=== PATIENT | female | born 1930 | race Caucasian/White ===

== ENCOUNTER 2017-04-13 22:13 | Inpatient (IN) | payer OTHER ==
[~2017-04-13] VITALS: Ht 167.6 cm; Wt 79.0 kg
[2017-04-13 23:27] LABS: ADD SCAN DIFF NO
[2017-04-13 23:29] LABS: BASOPHILS % 0.2 % (0.0-2.0); EOSINOPHILS # 0.1 10^3/ul (0.0-0.5); EOSINOPHILS % 0.6 % (0.0-7.0); HEMATOCRIT 30.9 % (37.0-47.0); HEMOGLOBIN 9.1 g/dl (12.0-16.0); LYMPHOCYTES # 2.3 10^3/ul (0.8-2.9); LYMPHOCYTES % 15.2 % (15.0-51.0); MEAN CORPUSCULAR HEMOGLOBIN 30.7 pg (29.0-33.0); MEAN CORPUSCULAR HGB CONC 29.4 g/dl (32.0-37.0); MEAN CORPUSCULAR VOLUME 104.4 fl (82.0-101.0); MONOCYTE # 0.9 10^3/ul (0.3-0.9); MONOCYTES % 5.9 % (0.0-11.0); NEUTROPHIL # 11.8 10^3/ul (1.6-7.5); NEUTROPHILS % 77.5 % (39.0-77.0); PLATELET COUNT 162 10^3/UL (140-415); RED BLOOD COUNT 2.96 10^6/ul (4.20-5.40); RED CELL DISTRIBUTION WIDTH 13.8 % (11.5-14.5); WHITE BLOOD COUNT 15.3 10^3/ul (4.8-10.8)
[2017-04-13] MEDS ORDERED: ENOX30DI10 SQ (23:41)
[2017-04-13] MEDS ORDERED: FAMO10TA84 G-TUBE (23:41)
[2017-04-13] MEDS ORDERED: LORA0.5T G-TUBE (23:41)
[2017-04-13] MEDS ORDERED: ASCO500S2 GTB (23:41)
[2017-04-13] MEDS ORDERED: LACTINEX G-TUBE (23:41)
[2017-04-13] MEDS ORDERED: FERR300S PO (23:41)
[2017-04-13] MEDS ORDERED: ACET160O41 PO (23:41)
[2017-04-13] MEDS ORDERED: CLON-429 G-TUBE (23:41)
[2017-04-13 23:45] LABS: INR 1.08; PT RATIO 1.1
[2017-04-13 23:46] LABS: PARTIAL THROMBOPLASTIN TIME 31.8 Sec (25.0-35.0)
[2017-04-13 23:49] LABS: ALBUMIN 3.5 g/dl (3.3-4.9); ALBUMIN/GLOBULIN RATIO 0.76; CALCIUM 9.4 mg/dl (8.4-10.2); CREATININE 1.45 mg/dl (0.44-1.00); POTASSIUM 4.4 mmol/L (3.5-5.1); TOTAL PROTEIN 8.1 g/dl (6.1-8.1)
[2017-04-13] MEDS ORDERED: SODIUM CHLORIDE 0.9% 1L BAG IV* STA (23:55)
[2017-04-13] MEDS ORDERED: MEROPENEM 1 GM/100 ML (PMX) 100 ML IVPB STA (23:55)
[2017-04-13] MEDS ORDERED: CEFEPIME 2GM/50 ML (PMX) 50 ML IVPB STA (23:55)
[2017-04-14] VITALS (44 sets, daily range): BP systolic 79–153; BP diastolic 44–121; PULSE 86–114; RESP 10–21; TEMP 97.6; Ht 167.6 cm; Wt 79.0 kg
[2017-04-14] LABS: TROPONIN-I 0.014 ng/ml (0.00-0.12)
--- NOTE | 2017-04-14 00:12 | ERA ---
ER Documentation Chief Complaint Date/Time DATE: 04/14/17 TIME: 00:10 Chief Complaint ELEVATED WBC HPI This is an 86-year-old female sent in from [facility] facility for elevated WBC count. Patient has a trach to vent patient. History is limited secondary to baseline mental status. History is per EMS run sheet senior care transfer sheet. ROS All systems reviewed and are negative except as per history of present illness. Medications Home Meds Reported Medications Clonazepam* (Klonopin*) 0.5 Mg Tab, 0.25 MG G-TUBE BID for ANXIETY, TAB 04/13/17 Lorazepam* (Lorazepam*) 0.5 Mg Tablet, 0.5 MG G-TUBE Q12 Y for ANXIETY, TAB 0.5MG TABLET VIA GT Q12HRS PRN; FOR ANXIEETY M/B HYPERVENTILATION L/T SOB. 04/13/17 Acetaminophen* (Acetaminophen* Susp) 160 Mg/5 Ml Oral.susp, 160 MG PO Q4H Y for PAIN OR TEMP ABOVE 38C, ML MAY GIVE 640MG/20ML 30 MINUTES PRIOR TO RNA PROGRAM FOR PAIN MANAGEMENT R/T SPLINTING & ROM EXERCISES NTE 3GM/24HR OF APAP. 04/13/17 Ascorbic Acid* (Vitamin C* Liq) 500 Mg/5 Ml Syrup, 500 MG GTB DAILY, ML 500MG/5ML VIA GT DAILY DX: SUPPLEMENT 04/13/17 Ferrous Sulfate (FEROSUL) 300 Mg/6.82 Ml Solution, 300 MG PO 330MG/7.5ML VIA GT BID DX: SUPPLEMENT/ANEMIA 04/13/17 Lactobacillus Acidophilus* (Lactinex*) 1 Tab Chew, 1 TAB G-TUBE DAILY, TAB 04/13/17 Famotidine* (Famotidine*) 10 Mg Tablet, 10 MG G-TUBE DAILY for GERD, #30 TAB VIA G TUBE Daily at 11:30AM 04/13/17 Enoxaparin Sodium* (Lovenox*) 30 Mg/0.3 Ml Disp.syrin, 30 MG SQ DAILY, SYR 04/13/17 Allergies Allergies: Coded Allergies: vancomycin (Verified Allergy, Unknown, 02/28/15) PMhx/Soc History of Surgery: Yes (G-TUBE) Hx Respiratory Disorders: Yes (TRACHE) Hx Cardiac Disorders: Yes (HTN, CHF) Hx Psychiatric Problems: Yes (DEMENTIA) Hx Miscellaneous Medical Probl: Yes (DYSPHAGIA) Hx Alcohol Use: No Hx Substance Use: No Hx Tobacco Use: No Smoking Status: Unknown if ever smoked Physical Exam Vitals Vital Signs Date Time Temp Pulse Resp B/P Pulse Ox O2 Delivery O2 Flow Rate FiO2 04/13/17 22:50 92 10 99 35 04/13/17 22:38 99.3 93 105/69 100 Physical Exam Const: [] Head: Atraumatic Eyes: Normal Conjunctiva ENT: Trach site is clean dry and intact with no sign of infection Neck: Full range of motion..~ No meningismus. Resp: Clear to auscultation bilaterally Cardio: Regular rate and rhythm, no murmurs Abd: Soft, non tender, non distended. Normal bowel sounds Skin: No petechiae or rashes Back: No midline or flank tenderness Ext: No cyanosis, or edema Neur: Awake Psych: Deferred Result Diagram: 04/13/17225404/13/175 Results 24 hrs Laboratory Tests Test 04/13/17 22:55 White Blood Count 15.310^3/ul Red Blood Count 2.9610^6/ul Hemoglobin 9.1g/dl Hematocrit 30.9% Mean Corpuscular Volume 104.4fl Mean Corpuscular Hemoglobin 30.7pg Mean Corpuscular Hemoglobin Concent 29.4g/dl Red Cell Distribution Width 13.8% Platelet Count 22488^3/UL Mean Platelet Volume 13.0fl Neutrophils % 77.5% Lymphocytes % 15.2% Monocytes % 5.9% Eosinophils % 0.6% Basophils % 0.2% Nucleated Red Blood Cells % 0.0/100WBC Neutrophils # 11.810^3/ul Lymphocytes # 2.310^3/ul Monocytes # 0.910^3/ul Eosinophils # 0.110^3/ul Basophils # 0.010^3/ul Nucleated Red Blood Cells # 0.010^3/ul Prothrombin Time 14.0Sec Prothrombin Time Ratio 1.1 INR International Normalized Ratio 1.08 Activated Partial Thromboplast Time 31.8Sec Sodium Level 150mmol/L Potassium Level 4.4mmol/L Chloride Level 109mmol/L Carbon Dioxide Level 31mmol/L Anion Gap 14 Blood Urea Nitrogen 89mg/dl Creatinine 1.45mg/dl Glucose Level 598mg/dl Lactic Acid Level 2.3mmol/L Calcium Level 9.4mg/dl Total Bilirubin 0.0mg/dl Direct Bilirubin 0.00mg/dl Indirect Bilirubin 0.0mg/dl Aspartate Amino Transf (AST/SGOT) 12IU/L Alanine Aminotransferase (ALT/SGPT) 29IU/L Alkaline Phosphatase 104IU/L Troponin I 0.014ng/ml Total Protein 8.1g/dl Albumin 3.5g/dl Globulin 4.60g/dl Albumin/Globulin Ratio 0.76 Current Medications Medications (Trade) Dose Ordered Sig/Danyell Route PRN Reason Start Time Stop Time Status Last Admin Dose Admin Sodium Chloride 2020 ml 2,020 ml BOLUS OVER 2 HOURS STAT IV* 04/13/17 23:55 04/14/17 00:00 DC Cefepime HCl 50 ml @ 100 mls/hr ONCE STAT IVPB 04/13/17 23:55 04/14/17 00:24 Meropenem (Merrem 1 Gm/100 ml (Pmx)) 100 ml @ 200 mls/hr ONCE STAT IVPB 04/13/17 23:55 04/14/17 00:24 Procedures/MDM EKG: Rate/Rhythm: [Normal Sinus Rhythm] QRS, ST, T-waves: [No changes consistent w/ acute ischemia] Impression: [No evidence of ischemia or arrhythmia] Chest X-ray 1V Interpreted by me: Soft Tissue: No acute abnormalities Bones: No acute abnormalities Mediastinum/Cardiac Silhouette/Lungs: [No acute abnormalities] Patient's infectious symptoms have not stabilized and the patient is at risk of rapid decompensation. The patient will be admitted for careful hydration, antibiotic therapy, and infectious source control. Severe Sepsis Assessment: Infectious Source: Unknown End organ damage indicated by: [Lactate > 2.0 mmol/L Severe Sepsis Managment: Blood Cultures X 2 before broad spectrum antibiotics initiated within 3 hours of recognition. 30 ml/kg NS bolus Completed Initial Lactate: 2.3 Repeat Lactate pending Critical Care: Time: 45 minutes Treatments/Evaluations: Emergent fluid management, while maintaining close respiratory support. Immediate broad spectrum antibiotic therapy. Simultaneous assessment for possible sources in order to direct therapy. Consideration for invasive and chemical support to prevent respiratory or cardiac collapse. Septic Shock Assessment (1 hour post 30 ml/kg fluid bolus): Hypotension (SBP < 90 or 40 mmHg drop, MAP < 65): [No] Lactic acid > 4.0 [No] Accepting Care Team: Current data and ongoing care discussed. Time: 12 AM Primary Provider: Dr. 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
--- NOTE | 2017-04-14 00:32 | RADRPT ---
PROCEDURE: XR Chest. CLINICAL INDICATION: Chest pain. Possible sepsis TECHNIQUE: Portable AP upright view of the chest was obtained. COMPARISON: 06/25/2009 FINDINGS: The cardiomediastinal silhouette is within normal limits. Elevation of the right hemidiaphragm is p resent, the left lung is grossly clear for acute infiltrates. There has been improvement in aeratio n of the lungs compared to the prior study. Tracheostomy is in good position. There is no evidence for pleural effusion, pneumothorax or pulmonary vascular congestion. Demineralization is again not ed without acute osseous abnormality. Interval removal of previously seen left-sided PICC RPTAT:HJJR IMPRESSION: 1. Chronic interstitial age-related changes of the lungs are noted with improved aeration compared to the prior study and no evidence of acute intrathoracic pathology. 2. Nonspecific elevation of the right hemidiaphragm but 3. Tracheostomy in good position. Physician Pritesh Date Time Electronically viewed and signed by Physician Pritesh on 04/14/2017 00:32 JR/
[2017-04-14 06:46] LABS: ADD UMIC YES; URINE BILIRUBIN (Dip) NEGATIVE (NEGATIVE); URINE BLOOD (Dip) 3+ (NEGATIVE); URINE COLOR BROWN (YELLOW); URINE KETONES (Dip) NEGATIVE (NEGATIVE); URINE LEUKOCYTE ESTERASE (Dip) 3+ (NEGATIVE); URINE NITRITE (Dip) NEGATIVE (NEGATIVE); URINE TOTAL PROTEIN (Dip) 2+ (NEGATIVE); URINE UROBILINOGEN (Dip) 0.2 E.U./dL (0.1-1.0)
[2017-04-14 07:07] LABS: BACTERIA,URINE FEW
[2017-04-14] MEDS ORDERED: D5W-0.45 NACL + KCL 20 MEQ 1,000 ML IV SCH (10:59)
[2017-04-14] MEDS ORDERED: NACL 0.9% 3 ML SYG IV SCH (11:00)
[2017-04-14] MEDS ORDERED: morphine 2 MG INJ IV PRN (11:00)
[2017-04-14] MEDS ORDERED: ONDANSETRON 4 MG INJ IV PRN (11:00)
[2017-04-14] MEDS ORDERED: GLUCAGON 1 MG INJ IM PRN (11:30)
[2017-04-14] MEDS ORDERED: GLUCOSE GEL 15 GRAM TUBE BUCCAL PRN (11:30)
[2017-04-14] MEDS ORDERED: DEXTROSE 50% 50 ML SYRINGE IV PRN ×2 (11:30)
[2017-04-14] MEDS ORDERED: GLUCOSE GEL 15 GRAM TUBE PO PRN ×2 (11:30)
[2017-04-14] MEDS: LINEZOLID 600 MG/D5W (PMX) 300 ML IVPB SCH ×2 (11:39→20:40)
--- NOTE | 2017-04-14 12:13 | HP ---
DATE OF ADMISSION: 04/14/2017 CHIEF COMPLAINT: The patient was sent from [facility] for elevated white blood cells on routine labs. HISTORY OF PRESENT ILLNESS: The patient is an 86-year-old female who was brought from [facility]. 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 The patient cannot provide any history. Most of the history wa s obtained from medical records and talking to the nursing staff. The patient is noted to have a te mperature of 99.2 on admission. White blood cells were elevated to 15,300 with lactic acid elevated to 2.7. The patient also noted hypernatremia and hyperglycemia, elevated BUN and creatinine. The patient's urinalysis was positive for leukocyte esterase and bacteria. The patient was given fluids and broad-spectrum antibiotics and admitted for further evaluation and management. PAST MEDICAL HISTORY: Per HPI. PAST SURGICAL HISTORY: Status post tracheostomy by Dr. Mancia in 2008, status post G-tube placem ent. FAMILY HISTORY: Noncontributory. SOCIAL HISTORY: The patient is a resident of a [facility] facility. There is no documented hi story of tobacco use, alcohol use or illicit drug use. ALLERGIES: THE PATIENT IS ALLERGIC TO VANCOMYCIN. MEDICATIONS ON ADMISSION: 1. Klonopin. 2. Lorazepam. 3. Acetaminophen. 4. Ascorbic acid. 5. Ferrous sulfate. 6. Lactinex. 7. Pepcid. 8. Lovenox. REVIEW OF SYSTEMS: A 12-point review of systems is negative unless what mentioned in the HPI. PHYSICAL ASSESSMENT: GENERAL: Well-developed, well-nourished female, currently is awake. VITAL SIGNS: Temperature is 99.2, pulse is 89, blood pressure is 140/47, respiratory rate 19, oxyge n saturation 98% on 35% FIO2. HEENT: Head is atraumatic, normocephalic. Pupils equal, round, reactive to light and accommodation . Oral mucosa is pink and moist. NECK: Supple, no cervical lymphadenopathy. The patient has a tracheostomy at the base of the neck with no bleeding. LUNGS: Slightly diminished at the bases, clear at the upper lobes. CARDIOVASCULAR: Normal S1, S2. No murmurs, gallops, clicks, rubs noted. ABDOMEN: Protuberant, soft, nondistended, nontender. Bowel sounds present. There is a G-tube with excoriation, redness around the stoma. There is no guarding or rebound tenderness. EXTREMITIES: Bilateral lower extremities contracted, upper extremity pulses equal bilaterally 2+. NEUROLOGIC: The patient is awake, opens eyes. Does not follow any commands. SKIN: There is no apparent rash, petechiae noted. LABORATORY DATA: On admission, CBC: White blood cells 15.3, hemoglobin 9.1, hematocrit 30.9, plate lets 162. Chemistry: Sodium is 150, potassium 4.4, chloride 109, carbon dioxide 31, anion gap 14, BUN 89, creatinine 1.45, glucose 598. Lactic acid 2.7. AST 12, ALT 29, alkaline phosphate is 104. Troponin 0.014. Albumin 3.5. IMAGING: Chest x-ray on admission with chronic interstitial age-related changes of the lungs are no alexis with improved aeration compared to prior study. No evidence of acute intrathoracic pathology. Nonspecific elevation of the right hemidiaphragm. Tracheostomy in good position. ASSESSMENT AND PLAN: 1. Sepsis, possible urinary tract infection per UA. 2. G-tube cellulitis. 3. Ventilator-dependent respiratory failure. 4. Dysphagia with G-tube. 5. Organic brain syndrome with psychosis. 6. Dehydration. 7. Chronic Pérez catheter. 8. Hypertension. 9. Hypernatremia. The patient has a history of methicillin-resistant Staphylococcus aureus pneumonia. The patient was given cefepime and meropenem in the emergency room. We are going to obtain urine, blood and sputum cultures. We will place patient on Zyvox since patient has a history of MRSA and VANCOMYCIN ALLERG Y. We will ask Dr. Calvo to see patient in infectious disease consultation. We will ask Dr. Lucio gunter to see patient in pulmonology consultation for ventilator management. We will ask Dr. Thompson to see patient in gastroenterology consultation for possible G-tube cellulitis. Continue IV fluids. T he patient is hyperglycemic; however, does not have a history of diabetes. We will place patient on insulin per mild algorithm sliding scale with Accu-Chek q.4h. The patient also with elevated BUN a nd creatinine, we will ask Dr. Mcdaniel to see patient in nephrology consultation. We will continue Lo venox for deep venous thrombosis prophylaxis and Protonix for peptic ulcer disease prophylaxis. Fur ther recommendations based on clinical course. Plan of care discussed with Dr. Perry. Dictated By: MARY HENDRICKSON GRAIN SACKER for ALFONSO PERRY MD SR/NTS Conf#: [id number] DID#: [id number]
[2017-04-14] MEDS: INSULIN ASPART [NOVOLOG] 3 ML PEN SC SCH ×3 (12:45→20:47)
--- NOTE | 2017-04-14 12:45 | CONS ---
DATE OF ADMISSION: 04/14/2017 DATE OF CONSULTATION: 04/14/2017 TYPE OF CONSULTATION: Pulmonary. REASON FOR CONSULTATION: Ventilator management. Thank you, Dr. Carrillo, for this consultation. HISTORY OF PRESENT ILLNESS: This is an 86-year-old lady with multiple medical problems, transferred from longterm facility for leukocytosis and worsening mentation. Few further details are av ailable. The patient is nonverbal, on mechanical ventilation, unable to give me further details. PAST MEDICAL HISTORY: Includes 1. Vent-dependent respiratory failure. 2. Encephalopathy. 3. History of iron deficiency anemia. 4. History of MRSA. 5. Prior septic shock. MEDICATIONS: Per chart. ALLERGIES: NONE. SOCIAL HISTORY: Nonsmoker, no alcohol, no history of drug use. FAMILY HISTORY: Noncontributory. ALLERGIES: VANCOMYCIN. REVIEW OF SYSTEMS: A 12-point review of systems unable to perform. PHYSICAL EXAMINATION: GENERAL: Chronically ill appearing lady, who appears intermittently agitated but not following comm ands. VITAL SIGNS: Temperature 98, pulse is 100, blood pressure 140/67, O2 saturation 96% on FIO2 of 50%. NECK: Trach site clean and intact. CARDIAC: S1, S2, no added sounds or murmurs. CHEST: Diminished air entry bilaterally. ABDOMEN: Soft, nontender. No guarding or rebound. EXTREMITIES: No cyanosis, clubbing, 2+ edema. NEUROLOGIC: Generalized weakness. LABORATORY DATA: White count 15.3, hemoglobin 9.1, platelets 116. BUN 89, creatinine 1.45, glucose 598. INR 1.02. Urinalysis was positive for UTI. IMAGING: Chest x-ray was reviewed, showed no significant infiltrates or effusions, elevated right h emidiaphragm. IMPRESSION: 1. Urinary tract infection with leukocytosis. 2. Ventilatory-dependent respiratory failure. 3. Encephalopathy. 4. Dysphagia with G-tube. 5. Incomplete data. PLAN: 1. Continue broad-spectrum antibiotics. 2. Continue mechanical ventilation. 3. Pulmonary toilet. 4. Tube feeding. 5. DVT and GI prophylaxis. Dictated By: MARINO HUDSON/MARY Conf#: [id number] DID#: [id number]
--- NOTE | 2017-04-14 13:10 | CONS ---
DATE OF ADMISSION: 04/14/2017 DATE OF CONSULTATION: 04/14/2017 INFECTIOUS DISEASE CONSULTATION REASON FOR CONSULTATION: Antibiotic management. HISTORY OF PRESENT ILLNESS: The patient is an 86-year-old [place] male who comes in from residential facility with elevated white count. Problems include: 1. Organic brain syndrome with psychosis. 2. Ventilator-dependent respiratory failure. 3. Status post tracheostomy. 4. Dysphagia with G-tube placement. 5. History of methicillin-resistant Staphylococcus aureus pneumonia. 6. Hypertension. 7. Obstructive uropathy with chronic Pérez catheter. The patient cannot provide any history. He has a temperature of 99.2 on admission. His CBC showed a white count of 15.3, H and H of 9.1 and 30.9, platelet count 162,000. BUN and creatinine 89 and 1 .45. Chest x-ray showed chronic interstitial age-related changes of the lungs, no evidence of acute intrathoracic pathology. PAST MEDICAL HISTORY: Operations as outlined. FAMILY HISTORY: Noncontributory. SOCIAL HISTORY: The patient lives in a residential facility. Does not smoke, drink, or abuse d rugs. ALLERGIES: VANCOMYCIN. MEDICATIONS: Per chart. REVIEW OF SYSTEMS: Noncontributory. PHYSICAL EXAMINATION: GENERAL: The patient is an elderly appearing, chronically ill female who is awake, but noncommunica tive. VITAL SIGNS: Stable. She is afebrile. SKIN: Without generalized rash. HEENT: Within normal limits. NECK: The patient has a tracheostomy. CHEST: Decreased breath sounds at the bases. HEART: Without murmur or gallop. ABDOMEN: Soft, nontender without organosplenomegaly or masses. G-tube has some excoriation and red ness around the stoma. There is no guarding or rebound tenderness. EXTREMITIES: Bilateral contractures. RECTAL AND GENITAL: Deferred. NEUROLOGIC: The patient does not follow commands. She is demented, but has no focal neurological f indings otherwise. IMPRESSION AND PLAN: The patient has a history of methicillin-resistant staph. She was given cefep emy and meropenem in the emergency room. Cultures of urine and blood in the sputum were done. The patient was placed on Zyvox. The infection may be from G-tube cellulitis which is most likely. Her urinalysis, however, shows 3+ leukocyte esterase and 25 to 50 white cells per high powered field, s o she probably also has a urinary tract infection. We know she has a Pérez catheter in place. I wi ll dictate my findings to Dr. Carrillo. Dictated By: JUWAN MARSHALL MD, JD/MARY Conf#: [id number] DID#: [id number]
--- NOTE | 2017-04-14 18:37 | CONS ---
DATE OF ADMISSION: 04/14/2017 DATE OF CONSULTATION: 04/14/2017 TYPE OF CONSULTATION: NEPHROLOGY. REFERRING PHYSICIAN: Santos Carrillo MD REASON FOR CONSULTATION: Acute kidney injury with a creatinine 1.5,BUN 89, hypernatremia with a sodium 150, sepsis. 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 The patient was noted to have a WBC count of 15.3 on admission, but on the chemistry, she is noted to have hypernatremia with a sodium of 150, BUN 89, creatinine 1.4. Her blood sugar has been very uncontrolled about 598 with a lactic acid of 2.3, which went up to 2.3 this morning. Her blood sugar has been still running very high and the patient is noted to have acute kidney injury with a severe hypernatremia and renal has been consulted for that. REVIEW OF SYSTEMS: Unable to obtain from the patient since the patient has vent dependent respiratory failure. PAST MEDICAL HISTORY: 1. Notable for ventilator-dependent respiratory failure, status post tracheostomy. 2. Organic brain syndrome with psychosis. 3. Status post dysphagia with G-tube placement. 4. History of methicillin-resistant Staphylococcus aureus pneumonia. 5. Hypertension. 6. Obstructive uropathy with a chronic Pérez catheter. ALLERGIES: VANCOMYCIN. SOCIAL HISTORY: The patient lives in a senior living facility. Does not smoke, drink or abuse drugs. FAMILY HISTORY: Noncontributory. HOME MEDICATIONS: As per medical reconciliation. PHYSICAL EXAMINATION: VITAL SIGNS: Temperature 99.5, heart rate 90, respiration 14, blood pressure 143/61, saturation 100% on mechanical ventilator, FIO2 of 30%. GENERAL: The patient is an elderly female, chronically ill female who is awake , but noncommunicative. SKIN: Without generalized rash. HEENT: Within normal limits. NECK: Supple, no JVD. The patient has a tracheostomy site. LUNGS: Decreased breath sounds at both lung bases, minimal expiratory wheezing present. HEART: S1, S2, with regular rhythm without murmur or gallop. ABDOMEN: Soft, nontender, without organosplenomegaly or masses. G-tube site has some excoriation and redness around the stoma. There is no guarding or rebound tenderness. EXTREMITIES: Bilateral contractures. RECTAL AND GENITAL: Deferred. NEUROLOGICAL: The patient does not follow, she is demented but has no focal neurological deficits otherwise. LABORATORY DATA/DIAGNOSTIC IMAGING: Sodium 150, potassium 4.4, chloride 109, bicarbonate 31, BUN 89, creatinine 1.4, glucose 598, calcium 9.4, albumin 3.5. Lactic acid 2.3. PT ____, PTT 31, INR 1.08. WBC 15.3, hemoglobin 9.1, platelet count 162. Urinalysis positive for infection, leukocyte esterase 3+, 3 + hemoglobin, and 2+ total protein. 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 Renal has been consulted for hyponatremia, acute kidney injury. IMPRESSION: 1. Acute kidney injury with high BUN 89, likely secondary to septic shock from sepsis secondary to urinary tract infections. 2. Septic shock secondary to urinary tract infection. 3. Hypernatremia. Sodium 150 secondary to large free water deficit. 4. G-tube site cellulitis. 5. Ventilator-dependent respiratory failure, status post tracheostomy. 6. Dysphagia, status post gastrostomy tube placement. 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 9. Hypertension. 10. Hyperlipidemia. PLAN: Thank you, Dr. Carrillo, for this consultation. 1. I will stop the patient's current IV fluids, D5 half NS and I will switch her to half NS with 20 mEq KCl to run at 75 mL per hour. 2. IV antibiotics, cefepime and meropenem has been started and infectious disease has been following the patient. 3. The patient likely has acute kidney injury from sepsis and also prerenal azotemia. I am expecting the patient's BUN and creatinine to improve with IV fluid hydration. 4. We will continue to monitor the patient's electrolytes and will follow up with the primary care service and other subspecialty services on the case. Once again, thank you, Dr. Carrillo, for this consultation. Total time spent in this patient's evaluation making assessment and plan, communicating with the patient's family at bedside and communicating with the nursing staff took more than 90 minutes. Dictated By: FERNANDO CLARK MD, KP/MARY Conf#: [id number] DID#: [id number] MTDD
[2017-04-14] MEDS ORDERED: 1/2 NS + KCL 20 MEQ 1,000 ML IV SCH (19:30)
[2017-04-14] MEDS ORDERED: BARIUM SULF 2% 450 ML BTL (BERRY SMOOTHIE) PO ONE (20:00)
[2017-04-15] VITALS (30 sets, daily range): BP systolic 104–153; BP diastolic 45–70; PULSE 73–90; RESP 10–19
--- NOTE | 2017-04-15 00:34 | CONS ---
DATE OF ADMISSION: 04/14/2017 DATE OF CONSULTATION: TYPE OF CONSULTATION: Gastroenterology. Dear Dr. Perry: Thank you for asking me to see Ms. Graves in GI consultation. HISTORY OF PRESENT ILLNESS: The patient is an 86-year-old French female, is admitted to the [facility] with sepsis but is in intensive care unit because of hypotension and sepsis. GI consultation is requested because of a history of cellulitis around the gastrostomy site. The patient is [facility] from a [facility] facility. She has got respiratory failure, status post tracheostomy, organic brain syndrome. She is ventilato r dependent. She has a PEG in place, history of MRSA, hypertension, obstructive uropathy. She is o n a chronic Pérez catheter. MEDICATIONS PRIOR TO THE ADMISSION: Include 1. Klonopin. 2. Lorazepam. 3. Acetaminophen. 4. Ascorbic acid. 5. Ferrous sulfate. 6. Lactinex. 7. Pepcid. 8. Lovenox. PHYSICAL EXAMINATION: GENERAL: The patient is mildly obese. She is not verbal. VITAL SIGNS: Pulse is 88, blood pressure is 120/68. CARDIOVASCULAR: Normal heart sounds. RESPIRATORY: Normal breath sounds. Status post tracheostomy. ABDOMEN: Severe erythema and edema, friability around the gastrostomy site. LABORATORY WORKUP: Hemoglobin is 9.1, WBC count 15,300. The liver panel: Bilirubin 0.0, AST 12, A LT 29, alkaline phosphatase 104. Potassium 4.4, sodium 150 as of yesterday. CLINICAL IMPRESSION: The patient presenting with history of severe cellulitis around the gastrostom y site, rule out intra-abdominal abscess; history of sepsis; history of respiratory failure; PEG coni cement; multiple other medical problems as mentioned above. PLAN: Recommend CAT scan of the abdomen to rule out intra-abdominal abscess. Once again, Dr. Perry, thank you for this consultation. Dictated By: ISABEL HARDY/MARY Conf#: [id number] DID#: [id number] CC: ALFONSO PERRY MD;*EndCC*
[2017-04-15] MEDS: INSULIN ASPART [NOVOLOG] 3 ML PEN SC SCH ×6 (01:14→20:32)
[2017-04-15 05:15] LABS: ADD SCAN DIFF NO
[2017-04-15 05:26] LABS: ABNORMAL IP MESSAGE 1; BASOPHILS % 0.1 % (0.0-2.0); EOSINOPHILS # 0.1 10^3/ul (0.0-0.5); EOSINOPHILS % 0.9 % (0.0-7.0); HEMATOCRIT 27.6 % (37.0-47.0); HEMOGLOBIN 7.8 g/dl (12.0-16.0); LYMPHOCYTES # 3.3 10^3/ul (0.8-2.9); LYMPHOCYTES % 21.5 % (15.0-51.0); MEAN CORPUSCULAR HEMOGLOBIN 30.6 pg (29.0-33.0); MEAN CORPUSCULAR HGB CONC 28.3 g/dl (32.0-37.0); MEAN CORPUSCULAR VOLUME 108.2 fl (82.0-101.0); MONOCYTE # 0.9 10^3/ul (0.3-0.9); MONOCYTES % 5.8 % (0.0-11.0); NEUTROPHIL # 10.8 10^3/ul (1.6-7.5); NEUTROPHILS % 71.1 % (39.0-77.0); PLATELET COUNT 149 10^3/UL (140-415); RED BLOOD COUNT 2.55 10^6/ul (4.20-5.40); RED CELL DISTRIBUTION WIDTH 13.5 % (11.5-14.5); WHITE BLOOD COUNT 15.2 10^3/ul (4.8-10.8)
[2017-04-15] MEDS: PANTOPRAZOLE 40 MG INJ IV SCH (05:52)
[2017-04-15 05:55] LABS: ALBUMIN/GLOBULIN RATIO 0.69; BILIRUBIN,INDIRECT 0.3 mg/dl (0-1.1); BILIRUBIN,TOTAL 0.3 mg/dl (0.2-1.3); CALCIUM 9.3 mg/dl (8.4-10.2); CREATININE 1.26 mg/dl (0.44-1.00); MAGNESIUM 2.8 mg/dl (1.7-2.5); POTASSIUM 4.5 mmol/L (3.5-5.1); TOTAL PROTEIN 7.3 g/dl (6.1-8.1)
[2017-04-15 08:09] LABS: AADO2 Arterial 99.9 mmHg (7.0-24.0); Arterial Base Excess 3.7 mmol/L (-3.0-3); Arterial COHb 0.3 % (0.0-3.0); Arterial Fraction of Oxyhgb 96.5 % (93.0-99.0); Arterial HCO3 28.5 mmol/L (22.0-26.0); Arterial MetHb 0.4 % (0.0-1.5); Arterial Total Hemglobin 8.6 g/dl (12.0-18.0); MODE VENT - AC
[2017-04-15] MEDS: LINEZOLID 600 MG/D5W (PMX) 300 ML IVPB SCH ×2 (08:38→20:30)
[2017-04-15] MEDS: ENOXAPARIN 30 MG/0.3 ML SYG SC SCH (08:40)
--- NOTE | 2017-04-15 08:50 | CONS ---
Date/Time of Note Date/Time of Note DATE: 04/15/17 TIME: 08:47 Assessment/Plan Assessment/Plan Additional Assessment/Plan IMPRESSION: 1. Acute kidney injury with high BUN 89, likely secondary to septic shock from sepsis secondary to urinary tract infections. 2. Septic shock secondary to urinary tract infection. 3. Hypernatremia. Sodium 150 secondary to large free water deficit. 4. G-tube site cellulitis. 5. Ventilator-dependent respiratory failure, status post tracheostomy. 6. Dysphagia, status post gastrostomy tube placement. 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 9. Hypertension. 10. Hyperlipidemia. PLAN: good urine output 1.5 liter, BUN/Cr improvig, Na trending up D/C 1/2 NS start D5W [id number] KCL at 75 cc/hr Pt Blood sugar will go up but will cover with sliding scale Vent Management per pulmonary Will continue to follow up Consultation Date/Type/Reason Admit Date/Time April 14, 2017 at 00:00 Initial Consult Date March Type of Consultation: NEPHROLOGY Reason for Consultation acute kidney Injury, Hypernatremia Referring Provider: ALFONSO PERRY MD 24 HR Interval Summary Free Text/Dictation pt remained Stable on ventilator,BUN improving,Cr better, but Na trending up Exam/Review of Systems Vital Signs Vitals Vital Signs Date Time Temp Pulse Resp B/P Pulse Ox O2 Delivery O2 Flow Rate FiO2 04/15/17 08:00 82 04/15/17 08:00 30 04/15/17 06:00 13 153/62 99 Mechanical Ventilator 04/15/17 05:00 98.1 Intake and Output 04/14/17 04/14/17 04/15/17 15:00 23:00 07:00 Intake Total 280 ml 1690 ml 600 ml Output Total 690 ml 465 ml 380 ml Balance -410 ml 1225 ml 220 ml Exam GENERAL: The patient is an elderly female, chronically ill female who is awake , but noncommunicative. SKIN: Without generalized rash. HEENT: Within normal limits. NECK: Supple, no JVD. The patient has a tracheostomy site. LUNGS: Decreased breath sounds at both lung bases, minimal expiratory wheezing present. HEART: S1, S2, with regular rhythm without murmur or gallop. ABDOMEN: Soft, nontender, without organosplenomegaly or masses. G-tube site has some excoriation and redness around the stoma. There is no guarding or rebound tenderness. EXTREMITIES: Bilateral contractures. RECTAL AND GENITAL: Deferred. NEUROLOGICAL: The patient does not follow, she is demented but has no focal neurological deficits otherwise. Results Result Diagram: 04/15/17 0500 04/15/17 0500 Results 24 hrs Laboratory Tests Test 04/14/17 10:12 04/14/17 12:43 04/14/17 16:48 04/14/17 20:44 Blood Gas Specimen Source Blood arterial Arterial Blood Date Drawn 04/14/2017 10:46:00 AM Arterial Blood pH (Temp corrected) 7.426 Arterial Blood pCO2 (Temp correct) 44.3 Arterial Blood pO2 (Temp corrected) 98.2 H Arterial Blood HCO3 28.5 H Arterial Blood Base Excess 3.7 H Arterial Blood Oxygen Saturation 97.2 Omi Test N/A Arterial Blood Gas Puncture Site LB Arterial Blood Carboxyhemoglobin 0.3 Arterial Blood Methemoglobin 0.4 Blood Gas A-a O2 Differential 99.9 H Oxyhemoglobin Percent 96.5 Total Hemoglobin 8.6 L Blood Gas Temperature 37.0 Blood Gas Respiration Rate 10.0 Blood Gas Actual Respiration Rate 17 Blood Gas Modality VENT - AC FiO2 35.0 Blood Gas Tidal Volume 550.0 Blood Gas Low PEEP Setting 5.0 Blood Gas Notified Whom BT Blood Gas Notified Time 04/14/2017 10:52:00 AM Bedside Glucose 371 H 234 H 150 Test 04/15/17 01:10 04/15/17 05:00 04/15/17 05:55 04/15/17 08:36 Bedside Glucose 166 142 162 White Blood Count 15.2 H Red Blood Count 2.55 L Hemoglobin 7.8 L Hematocrit 27.6 L Mean Corpuscular Volume 108.2 H Mean Corpuscular Hemoglobin 30.6 Mean Corpuscular Hemoglobin Concent 28.3 L Red Cell Distribution Width 13.5 Platelet Count 149 Mean Platelet Volume 13.0 H Neutrophils % 71.1 Lymphocytes % 21.5 Monocytes % 5.8 Eosinophils % 0.9 Basophils % 0.1 Nucleated Red Blood Cells % 0.0 Neutrophils # 10.8 H Lymphocytes # 3.3 H Monocytes # 0.9 Eosinophils # 0.1 Basophils # 0.0 Nucleated Red Blood Cells # 0.0 Sodium Level 156 H Potassium Level 4.5 Chloride Level 119 H Carbon Dioxide Level 32 H Anion Gap 10 Blood Urea Nitrogen 55 #H Creatinine 1.26 H Glucose Level 144 # Hemoglobin A1c 7.2 H Calcium Level 9.3 Magnesium Level 2.8 H Total Bilirubin 0.3 Direct Bilirubin 0.00 Indirect Bilirubin 0.3 Aspartate Amino Transf (AST/SGOT) 34 Alanine Aminotransferase (ALT/SGPT) 30 Alkaline Phosphatase 86 Total Protein 7.3 Albumin 3.0 L Globulin 4.30 H Albumin/Globulin Ratio 0.69 Medications Medications Current Medications Linezolid (Zyvox 600mg/D5W (Pmx)) 300 ml @ 300 mls/hr Q12 IVPB Last administered on 04/15/17 08:38; Admin Dose 300 MLS/HR; Start 04/14/17 at 11:00 Lorazepam (Ativan) 0.5 mg Q6H PRN IV ANXIETY; Start 04/14/17 at 11:00 Ondansetron HCl (Zofran Inj) 4 mg Q6H PRN IV NAUSEA AND/OR VOMITING; Start at 11:00 Morphine Sulfate (morphine) 2 mg Q4H PRN IV PAIN LEVEL 7-10; Start 04/14/17 at 11:00 Pantoprazole (Protonix Iv) 40 mg DAILY@06 IV Last administered on 04/15/17 05: 52; Admin Dose 40 MG; Start 04/15/17 at 06:00 Enoxaparin Sodium (Lovenox) 30 mg DAILY SC Last administered on 04/15/17 08:40 ; Admin Dose 30 MG; Start 04/15/17 at 09:00 Insulin Aspart (Novolog Insulin Pen) NOVOLOG *MILD* ALGORI... Q4 SC Last administered on 04/15/17 08:43; Admin Dose 1 UNIT; Start 04/14/17 at 13:00 Miscellaneous Information 1 ea NOTE XX ; Start 04/14/17 at 11:30 Glucose (Glutose) 15 gm Q15M PRN PO DECREASED GLUCOSE; Start 04/14/17 at 11:30 Glucose (Glutose) 22.5 gm Q15M PRN PO DECREASED GLUCOSE; Start 04/14/17 at 11: 30 Dextrose (D50w Syringe) 25 ml Q15M PRN IV DECREASED GLUCOSE; Start 04/14/17 at 11:30 Dextrose (D50w Syringe) 50 ml Q15M PRN IV DECREASED GLUCOSE; Start 04/14/17 at 11:30 Glucagon (Glucagen) 1 mg Q15M PRN IM DECREASED GLUCOSE; Start 04/14/17 at 11:30 Glucose 15 gm 15 gm Q15M PRN BUCCAL DECREASED GLUCOSE; Start 04/14/17 at 11:30 Potassium Chloride/Sodium Chloride (1/2 NS + KCl 20 Meq) 1,000 ml @ 75 mls/hr [id number] IV Last administered on 04/14/17t 19:38; Admin Dose 75 MLS/HR; Start at 19:30 FERNANDO CLARK MD April 15, 2017 08:50
[2017-04-15] MEDS: D5W + KCL 20 MEQ 1,000 ML IV SCH ×2 (09:29→22:20)
--- NOTE | 2017-04-15 09:47 | CONS ---
Date/Time of Note Date/Time of Note DATE: 04/15/17 TIME: 09:45 Consult Date/Type/Reason Admit Date/Time April 14, 2017 at 00:00 Initial Consult Date Type of Consultation: Pulmonary ICU Ordering Provider: ALFONSO PERRY MD Subjective Patient remains stable this morning no new events. Continues antibiotics no vasopressors Continues mechanical ventilation Objective Vital Signs Date Time Temp Pulse Resp B/P Pulse Ox O2 Delivery O2 Flow Rate FiO2 04/15/17 09:00 79 11 147/65 99 Mechanical Ventilator 04/15/17 08:00 98.0 04/15/17 08:00 30 Intake and Output 04/14/17 04/14/17 04/15/17 15:00 23:00 07:00 Intake Total 280 ml 1690 ml 600 ml Output Total 690 ml 465 ml 380 ml Balance -410 ml 1225 ml 220 ml Exam PHYSICAL EXAMINATION: GENERAL: Chronically ill appearing lady, who appears intermittently agitated but not following commands. VITAL SIGNS: As above NECK: Trach site clean and intact. CARDIAC: S1, S2, no added sounds or murmurs. CHEST: Diminished air entry bilaterally. ABDOMEN: Soft, nontender. No guarding or rebound. EXTREMITIES: No cyanosis, clubbing, 2+ edema. NEUROLOGIC: Generalized weakness. Results/Medications Result Diagram: 04/15/17 0500 04/15/17 0500 Results 24 hrs Laboratory Tests Test 04/14/17 10:12 04/14/17 12:43 04/14/17 16:48 04/14/17 20:44 Blood Gas Specimen Source Blood arterial Arterial Blood Date Drawn 04/14/2017 10:46:00 AM Arterial Blood pH (Temp corrected) 7.426 Arterial Blood pCO2 (Temp correct) 44.3 Arterial Blood pO2 (Temp corrected) 98.2 H Arterial Blood HCO3 28.5 H Arterial Blood Base Excess 3.7 H Arterial Blood Oxygen Saturation 97.2 Omi Test N/A Arterial Blood Gas Puncture Site LB Arterial Blood Carboxyhemoglobin 0.3 Arterial Blood Methemoglobin 0.4 Blood Gas A-a O2 Differential 99.9 H Oxyhemoglobin Percent 96.5 Total Hemoglobin 8.6 L Blood Gas Temperature 37.0 Blood Gas Respiration Rate 10.0 Blood Gas Actual Respiration Rate 17 Blood Gas Modality VENT - AC FiO2 35.0 Blood Gas Tidal Volume 550.0 Blood Gas Low PEEP Setting 5.0 Blood Gas Notified Whom BT Blood Gas Notified Time 04/14/2017 10:52:00 AM Bedside Glucose 371 H 234 H 150 Test 04/15/17 01:10 04/15/17 05:00 04/15/17 05:55 04/15/17 08:36 Bedside Glucose 166 142 162 White Blood Count 15.2 H Red Blood Count 2.55 L Hemoglobin 7.8 L Hematocrit 27.6 L Mean Corpuscular Volume 108.2 H Mean Corpuscular Hemoglobin 30.6 Mean Corpuscular Hemoglobin Concent 28.3 L Red Cell Distribution Width 13.5 Platelet Count 149 Mean Platelet Volume 13.0 H Neutrophils % 71.1 Lymphocytes % 21.5 Monocytes % 5.8 Eosinophils % 0.9 Basophils % 0.1 Nucleated Red Blood Cells % 0.0 Neutrophils # 10.8 H Lymphocytes # 3.3 H Monocytes # 0.9 Eosinophils # 0.1 Basophils # 0.0 Nucleated Red Blood Cells # 0.0 Sodium Level 156 H Potassium Level 4.5 Chloride Level 119 H Carbon Dioxide Level 32 H Anion Gap 10 Blood Urea Nitrogen 55 #H Creatinine 1.26 H Glucose Level 144 # Hemoglobin A1c 7.2 H Calcium Level 9.3 Magnesium Level 2.8 H Total Bilirubin 0.3 Direct Bilirubin 0.00 Indirect Bilirubin 0.3 Aspartate Amino Transf (AST/SGOT) 34 Alanine Aminotransferase (ALT/SGPT) 30 Alkaline Phosphatase 86 Total Protein 7.3 Albumin 3.0 L Globulin 4.30 H Albumin/Globulin Ratio 0.69 Medications Current Medications Linezolid (Zyvox 600mg/D5W (Pmx)) 300 ml @ 300 mls/hr Q12 IVPB Last administered on 04/15/17 08:38; Admin Dose 300 MLS/HR; Start 04/14/17 at 11:00 Lorazepam (Ativan) 0.5 mg Q6H PRN IV ANXIETY; Start 04/14/17 at 11:00 Ondansetron HCl (Zofran Inj) 4 mg Q6H PRN IV NAUSEA AND/OR VOMITING; Start at 11:00 Morphine Sulfate (morphine) 2 mg Q4H PRN IV PAIN LEVEL 7-10; Start 04/14/17 at 11:00 Pantoprazole (Protonix Iv) 40 mg DAILY@06 IV Last administered on 04/15/17 05: 52; Admin Dose 40 MG; Start 04/15/17 at 06:00 Enoxaparin Sodium (Lovenox) 30 mg DAILY SC Last administered on 04/15/17 08:40 ; Admin Dose 30 MG; Start 04/15/17 at 09:00 Insulin Aspart (Novolog Insulin Pen) NOVOLOG *MILD* ALGORI... Q4 SC Last administered on 04/15/17 08:43; Admin Dose 1 UNIT; Start 04/14/17 at 13:00 Miscellaneous Information 1 ea NOTE XX ; Start 04/14/17 at 11:30 Glucose (Glutose) 15 gm Q15M PRN PO DECREASED GLUCOSE; Start 04/14/17 at 11:30 Glucose (Glutose) 22.5 gm Q15M PRN PO DECREASED GLUCOSE; Start 04/14/17 at 11: 30 Dextrose (D50w Syringe) 25 ml Q15M PRN IV DECREASED GLUCOSE; Start 04/14/17 at 11:30 Dextrose (D50w Syringe) 50 ml Q15M PRN IV DECREASED GLUCOSE; Start 04/14/17 at 11:30 Glucagon (Glucagen) 1 mg Q15M PRN IM DECREASED GLUCOSE; Start 04/14/17 at 11:30 Glucose 15 gm 15 gm Q15M PRN BUCCAL DECREASED GLUCOSE; Start 04/14/17 at 11:30 Potassium Chloride/Dextrose (D5W + KCl 20 Meq) 1,000 ml @ 75 mls/hr [id number] IV Last administered on 04/15/17 09:29; Admin Dose 75 MLS/HR; Start 04/15/17 at 09:00 Assessment/Plan Chief Complaint/Hosp Course IMPRESSION: 1. Urinary tract infection with leukocytosis. 2. Ventilatory-dependent respiratory failure. 3. Encephalopathy. 4. Dysphagia with G-tube. 5. 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 Hypernatremia PLAN: 1. Continue broad-spectrum antibiotics. 2. Continue mechanical ventilation. 3. Pulmonary toilet. 4. Tube feeding. 5. DVT and GI prophylaxis. 6. Increase free water flushes 7. Consider transfusion 1 unit packed red blood cells Disposition transfer to telemetry Problems: MARINO PRITCHETT MD, [facility] April 15, 2017 09:47
--- NOTE | 2017-04-15 09:48 | RADRPT ---
PROCEDURE: CT Abdomen and Pelvis without contrast. CLINICAL INDICATION: Abscess TECHNIQUE: CT of the abdomen and pelvis was performed on a multi-detector scanner without IV contr ast. Coronal and sagittal images were reformatted from the axial data set. One or more of the foll owing dose reduction techniques were used: automated exposure control, adjustment of the mA and/or kV according to patient size, use of iterative reconstruction technique. CTDI = 22.92 mGy. DLP = 13 07.59 mGy-cm. COMPARISON: None. FINDINGS: CT abdomen: Bibasilar atelectasis is noted. The heart size is normal, without pericardial effusion. Coronary a rterial atherosclerotic calcifications are present. Liver demonstrates a benign cyst. Cholelithias is is seen without evidence for cholecystitis. Multiple 2-3 mm calcific densities are seen along th e expected course of the common bile duct (axial images 63-80), suggestive of choledocholithiasis. No gross evidence of intrahepatic biliary dilatation is seen. Pancreas, spleen and adrenal glands a re unremarkable. Multiple small bilateral nonobstructive renal calculi are noted, without ureteroli thiasis or obstructive uropathy. Indeterminate exophytic 2.3 cm hyperdensity is seen arising from t he lower pole of the right kidney (601-50). Gastrostomy tube tip is within the stomach. No evidenc e of abscess or fluid collection is seen at the gastrostomy tube site. The aorta is of normal caliber. Aortic vascular calcifications are present. There is no retroperit borrero lymphadenopathy. The clemente hepatis region is clear. CT pelvis: No bowel obstruction, free intraperitoneal air or abscess is identified. Sigmoid diverticulosis is seen without diverticulitis. The appendix is well visualized and normal. There is no colitis. Fol ey catheter balloon is within the urinary bladder. Left ovary demonstrates a 3.1 cm cyst. No solid pelvic mass, free fluid or lymphadenopathy is identified. The surrounding osseous structures are remarkable for scoliosis and degenerative spondylosis of the spine. The patient is status post right femoral ORIF. No osteolytic or osteoblastic lesion is dete cted. IMPRESSION: 1. Cholelithiasis is seen without evidence for cholecystitis. Multiple 2-3 mm calculi are identifi ed within the common bile duct as well. No gross evidence of intrahepatic biliary dilatation is see n. 2. Indeterminate 2.3 cm exophytic hyperdensity is seen arising from the lower pole of the right kid deejay - considerations include hemorrhagic cyst and neoplasm. Contrast enhanced CT or MRI is suggeste d for further characterization. 3. Multiple bilateral nonobstructive renal calculi are noted, without ureterolithiasis or obstructi ve uropathy. 4. Gastrostomy tube tip is within the stomach. No evidence of abscess or fluid collection is seen at the gastrostomy tube site. 5. Coronary arterial and aortoiliac atherosclerotic calcifications are present. 6. Sigmoid diverticulosis is seen without diverticulitis. 7. Left ovary demonstrates a 3.1 cm cyst. 8. Pérez catheter balloon is within the urinary bladder. RPTAT: EE .Robert Reyes MD, MD Date Time Electronically viewed and signed by .Robert Reyes MD, on 04/15/2017 09:47 .R/
--- NOTE | 2017-04-15 10:19 | PN ---
Date/Time of Note Date/Time of Note DATE: 04/15/17 TIME: 10:07 Assessment/Plan VTE Prophylaxis VTE Prophylaxis Intervention: LMWH Lines/Catheters IV Catheter Type (from [facility]): Peripheral IV Urinary Cath still in place: Yes Assessment/Plan Assessment/Plan - Sepsis, possible urinary tract infection per UA. - per ID - fu urine culture - G-tube cellulitis. - per GI - Ventilator-dependent respiratory failure. - per pulmonary - Diabetes Mellitus - Glycemic control - Anemia - Transfuse as as needed -Azotemia - Dr. Mcdaniel to see patient in nephrology consultation. - Dysphagia with G-tube. - aspiration precautions - Organic brain syndrome with psychosis. - Dehydration. - Chronic Pérez catheter. - Hypertension. - Hypernatremia.Na 156 - per nephrology - am labs - Hx MRSA - VANCOMYCIN ALLERGY. - Hx methicillin-resistant Staphylococcus aureus pneumonia. - Dementia - Lovenox for deep venous thrombosis prophylaxis - Protonix for peptic ulcer disease prophylaxis. Further recommendations based on clinical course. Total critical care time spend is 35 mins.Plan of care discussed with Dr. Carrillo. Subjective 24 Hr Interval Summary Free Text/Dictation nad, afebrile, awake, remains on vent, dw staff- no new issues reported. Constitutional: requiring IVF, requiring O2 Exam/Review of Systems Vital Signs Vitals Vital Signs Date Time Temp Pulse Resp B/P Pulse Ox O2 Delivery O2 Flow Rate FiO2 04/15/17 09:00 79 11 147/65 99 Mechanical Ventilator 04/15/17 08:00 98.0 04/15/17 08:00 30 Intake and Output 04/14/17 04/14/17 04/15/17 15:00 23:00 07:00 Intake Total 280 ml 1690 ml 600 ml Output Total 690 ml 465 ml 380 ml Balance -410 ml 1225 ml 220 ml Exam Constitutional: alert Psych: nl mood/affect Eyes: nl sclera ENMT: nl external ears & nose Respiratory: diminished breath sounds Cardiovascular: nl pulses Gastrointestinal: soft Musculoskeletal: muscle weakness Extremities: normal pulses Neurological: confused Skin: other Lymph: nontender Results Result Diagram: 04/15/17 0500 04/15/17 0500 Results 24 hrs Laboratory Tests Test 04/14/17 10:12 04/14/17 12:43 04/14/17 16:48 04/14/17 20:44 Blood Gas Specimen Source Blood arterial Arterial Blood Date Drawn 04/14/2017 10:46:00 AM Arterial Blood pH (Temp corrected) 7.426 Arterial Blood pCO2 (Temp correct) 44.3 Arterial Blood pO2 (Temp corrected) 98.2 H Arterial Blood HCO3 28.5 H Arterial Blood Base Excess 3.7 H Arterial Blood Oxygen Saturation 97.2 Omi Test N/A Arterial Blood Gas Puncture Site LB Arterial Blood Carboxyhemoglobin 0.3 Arterial Blood Methemoglobin 0.4 Blood Gas A-a O2 Differential 99.9 H Oxyhemoglobin Percent 96.5 Total Hemoglobin 8.6 L Blood Gas Temperature 37.0 Blood Gas Respiration Rate 10.0 Blood Gas Actual Respiration Rate 17 Blood Gas Modality VENT - AC FiO2 35.0 Blood Gas Tidal Volume 550.0 Blood Gas Low PEEP Setting 5.0 Blood Gas Notified Whom BT Blood Gas Notified Time 04/14/2017 10:52:00 AM Bedside Glucose 371 H 234 H 150 Test 04/15/17 01:10 04/15/17 05:00 04/15/17 05:55 04/15/17 08:36 Bedside Glucose 166 142 162 White Blood Count 15.2 H Red Blood Count 2.55 L Hemoglobin 7.8 L Hematocrit 27.6 L Mean Corpuscular Volume 108.2 H Mean Corpuscular Hemoglobin 30.6 Mean Corpuscular Hemoglobin Concent 28.3 L Red Cell Distribution Width 13.5 Platelet Count 149 Mean Platelet Volume 13.0 H Neutrophils % 71.1 Lymphocytes % 21.5 Monocytes % 5.8 Eosinophils % 0.9 Basophils % 0.1 Nucleated Red Blood Cells % 0.0 Neutrophils # 10.8 H Lymphocytes # 3.3 H Monocytes # 0.9 Eosinophils # 0.1 Basophils # 0.0 Nucleated Red Blood Cells # 0.0 Sodium Level 156 H Potassium Level 4.5 Chloride Level 119 H Carbon Dioxide Level 32 H Anion Gap 10 Blood Urea Nitrogen 55 #H Creatinine 1.26 H Glucose Level 144 # Hemoglobin A1c 7.2 H Calcium Level 9.3 Magnesium Level 2.8 H Total Bilirubin 0.3 Direct Bilirubin 0.00 Indirect Bilirubin 0.3 Aspartate Amino Transf (AST/SGOT) 34 Alanine Aminotransferase (ALT/SGPT) 30 Alkaline Phosphatase 86 Total Protein 7.3 Albumin 3.0 L Globulin 4.30 H Albumin/Globulin Ratio 0.69 Medications Medications Current Medications Linezolid (Zyvox 600mg/D5W (Pmx)) 300 ml @ 300 mls/hr Q12 IVPB Last administered on 04/15/17 08:38; Admin Dose 300 MLS/HR; Start 04/14/17 at 11:00 Lorazepam (Ativan) 0.5 mg Q6H PRN IV ANXIETY; Start 04/14/17 at 11:00 Ondansetron HCl (Zofran Inj) 4 mg Q6H PRN IV NAUSEA AND/OR VOMITING; Start at 11:00 Morphine Sulfate (morphine) 2 mg Q4H PRN IV PAIN LEVEL 7-10; Start 04/14/17 at 11:00 Pantoprazole (Protonix Iv) 40 mg DAILY@06 IV Last administered on 04/15/17 05: 52; Admin Dose 40 MG; Start 04/15/17 at 06:00 Enoxaparin Sodium (Lovenox) 30 mg DAILY SC Last administered on 04/15/17 08:40 ; Admin Dose 30 MG; Start 04/15/17 at 09:00 Insulin Aspart (Novolog Insulin Pen) NOVOLOG *MILD* ALGORI... Q4 SC Last administered on 04/15/17 08:43; Admin Dose 1 UNIT; Start 04/14/17 at 13:00 Miscellaneous Information 1 ea NOTE XX ; Start 04/14/17 at 11:30 Glucose (Glutose) 15 gm Q15M PRN PO DECREASED GLUCOSE; Start 04/14/17 at 11:30 Glucose (Glutose) 22.5 gm Q15M PRN PO DECREASED GLUCOSE; Start 04/14/17 at 11: 30 Dextrose (D50w Syringe) 25 ml Q15M PRN IV DECREASED GLUCOSE; Start 04/14/17 at 11:30 Dextrose (D50w Syringe) 50 ml Q15M PRN IV DECREASED GLUCOSE; Start 04/14/17 at 11:30 Glucagon (Glucagen) 1 mg Q15M PRN IM DECREASED GLUCOSE; Start 04/14/17 at 11:30 Glucose 15 gm 15 gm Q15M PRN BUCCAL DECREASED GLUCOSE; Start 04/14/17 at 11:30 Potassium Chloride/Dextrose (D5W + KCl 20 Meq) 1,000 ml @ 75 mls/hr [id number] IV Last administered on 04/15/17 09:29; Admin Dose 75 MLS/HR; Start 04/15/17 at 09:00 EDUARDO PATTEN April 15, 2017 10:17
--- NOTE | 2017-04-15 11:11 | PN ---
Date/Time of Note Date/Time of Note DATE: 04/15/17 TIME: 10:20 Assessment/Plan VTE Prophylaxis VTE Prophylaxis Intervention: LMWH Lines/Catheters IV Catheter Type (from Nrs): Peripheral IV Urinary Cath still in place: Yes Reason Cath still needed: other (indicate) (chronic celis ) Assessment/Plan Assessment/Plan 86 yo female with 1. Septic shock secondary to urinary tract infection and also with noted G- tube site cellulitis with hx of MRSA infection. Continue IVF and IV abx, on Zyvox, will resume Meropenem until urine cx back Follow up Urine cx and blood culture pending. 2. Acute kidney injury with high BUN 89, likely pre renal secondary to septic shock. Appreciate recs from Dr Mcdaniel Continue IVF and avoiding Nephrotoxic meds 3. Hypernatremia. Sodium up to 156 today, Nephro adjusting IVF 4. G-tube site cellulitis. On Zyvox and continuing Meropenem until Urine cx available 5. Ventilator-dependent respiratory failure, status post tracheostomy. Stable on current vent setting and Pulmonary following 6. Dysphagia, status post gastrostomy tube placement. 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 Good UOP 9. Hypertension: off meds and BP stable 10. Hyperlipidemia: NPO currently, resume statins later. Prophylaxis: Lovenox for DVT ppx and Protonix for GI ppx Disposition: ICU care for now, IV abx and follow up GI and ID recs today . Subjective 24 Hr Interval Summary Free Text/Dictation Patient hemodynamically stable and chronic vent dependent Still with significant hypernatremia and awaiting final GI recs regarding G tube Also ID, Nephro and Pulmonary following Exam/Review of Systems Vital Signs Vitals Vital Signs Date Time Temp Pulse Resp B/P Pulse Ox O2 Delivery O2 Flow Rate FiO2 04/15/17 09:00 79 11 147/65 99 Mechanical Ventilator 04/15/17 08:00 98.0 04/15/17 08:00 30 Intake and Output 04/14/17 04/14/17 04/15/17 14:59 22:59 06:59 Intake Total 210 ml 1685 ml 675 ml Output Total 615 ml 480 ml 440 ml Balance -405 ml 1205 ml 235 ml Exam Constitutional: alert, frail, other (vent dependent ) Psych: confusion Respiratory: clear to auscultation, other (vent ) Gastrointestinal: non-tender, other (G tube in place with an abdominal binder in place ), soft Extremities: normal pulses, other (no edema clubbing or cyanosis ) 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, confused, other (gets agitated ) Results Result Diagram: 04/15/17 0500 04/15/17 0500 Results 24 hrs Laboratory Tests Test 04/14/17 12:43 04/14/17 16:48 04/14/17 20:44 04/15/17 01:10 Bedside Glucose 371 H 234 H 150 166 Test 04/15/17 05:00 04/15/17 05:55 04/15/17 08:36 White Blood Count 15.2 H Red Blood Count 2.55 L Hemoglobin 7.8 L Hematocrit 27.6 L Mean Corpuscular Volume 108.2 H Mean Corpuscular Hemoglobin 30.6 Mean Corpuscular Hemoglobin Concent 28.3 L Red Cell Distribution Width 13.5 Platelet Count 149 Mean Platelet Volume 13.0 H Neutrophils % 71.1 Lymphocytes % 21.5 Monocytes % 5.8 Eosinophils % 0.9 Basophils % 0.1 Nucleated Red Blood Cells % 0.0 Neutrophils # 10.8 H Lymphocytes # 3.3 H Monocytes # 0.9 Eosinophils # 0.1 Basophils # 0.0 Nucleated Red Blood Cells # 0.0 Sodium Level 156 H Potassium Level 4.5 Chloride Level 119 H Carbon Dioxide Level 32 H Anion Gap 10 Blood Urea Nitrogen 55 #H Creatinine 1.26 H Glucose Level 144 # Hemoglobin A1c 7.2 H Calcium Level 9.3 Magnesium Level 2.8 H Total Bilirubin 0.3 Direct Bilirubin 0.00 Indirect Bilirubin 0.3 Aspartate Amino Transf (AST/SGOT) 34 Alanine Aminotransferase (ALT/SGPT) 30 Alkaline Phosphatase 86 Total Protein 7.3 Albumin 3.0 L Globulin 4.30 H Albumin/Globulin Ratio 0.69 Bedside Glucose 142 162 Medications Medications Current Medications Linezolid (Zyvox 600mg/D5W (Pmx)) 300 ml @ 300 mls/hr Q12 IVPB Last administered on 04/15/17t 08:38; Admin Dose 300 MLS/HR; Start 04/14/17 at 11:00 Lorazepam (Ativan) 0.5 mg Q6H PRN IV ANXIETY; Start 04/14/17 at 11:00 Ondansetron HCl (Zofran Inj) 4 mg Q6H PRN IV NAUSEA AND/OR VOMITING; Start at 11:00 Morphine Sulfate (morphine) 2 mg Q4H PRN IV PAIN LEVEL 7-10; Start 04/14/17 at 11:00 Pantoprazole (Protonix Iv) 40 mg DAILY@06 IV Last administered on 04/15/17 05: 52; Admin Dose 40 MG; Start 04/15/17 at 06:00 Enoxaparin Sodium (Lovenox) 30 mg DAILY SC Last administered on 04/15/17 08:40 ; Admin Dose 30 MG; Start 04/15/17 at 09:00 Insulin Aspart (Novolog Insulin Pen) NOVOLOG *MILD* ALGORI... Q4 SC Last administered on 04/15/17 08:43; Admin Dose 1 UNIT; Start 04/14/17 at 13:00 Miscellaneous Information 1 ea NOTE XX ; Start 04/14/17 at 11:30 Glucose (Glutose) 15 gm Q15M PRN PO DECREASED GLUCOSE; Start 04/14/17 at 11:30 Glucose (Glutose) 22.5 gm Q15M PRN PO DECREASED GLUCOSE; Start 04/14/17 at 11: 30 Dextrose (D50w Syringe) 25 ml Q15M PRN IV DECREASED GLUCOSE; Start 04/14/17 at 11:30 Dextrose (D50w Syringe) 50 ml Q15M PRN IV DECREASED GLUCOSE; Start 04/14/17 at 11:30 Glucagon (Glucagen) 1 mg Q15M PRN IM DECREASED GLUCOSE; Start 04/14/17 at 11:30 Glucose 15 gm 15 gm Q15M PRN BUCCAL DECREASED GLUCOSE; Start 04/14/17 at 11:30 Potassium Chloride/Dextrose (D5W + KCl 20 Meq) 1,000 ml @ 75 mls/hr [id number] IV Last administered on 04/15/17 09:29; Admin Dose 75 MLS/HR; Start 04/15/17 at 09:00 CINTIA GUSTAFSON April 15, 2017 10:35
--- NOTE | 2017-04-15 13:09 | PN ---
DATE: 04/15/2017 SUBJECTIVE: The patient remains comfortable on vent. She is awake and responsive. VITAL SIGNS: Temperature 98.6, pulse 76, respirations 16, blood pressure 138/56 , saturation 98 on vent. WBC 15.2, H and H 7.8 and 27.6, platelets 149, neutrophils 71.1, BUN 55, creatinine 1.26. MICROBIOLOGY: Blood cultures remain negative. Sputum culture pending. Urine culture growing gram-negative rods. DIAGNOSTICS: CT of the abdomen and pelvis revealed cholelithiasis without evidence for cholecystitis with multiple calculi within the common bile duct, questionable hemorrhagic cyst versus neoplasm in the right kidney with recommendations of CT contrast or MRI, multiple bilateral nonobstructive calculi , no evidence of abscess or fluid collection in G-tube site. ANTIMICROBIALS: The patient is on: 1. Meropenem. 2. Zyvox. ALLERGIES: VANCOMYCIN. PHYSICAL EXAMINATION: GENERAL: This is a fragile, chronically ill-appearing, elderly woman who is awake, responsive and in no distress. HEENT: Head atraumatic, normocephalic. Sclerae anicteric. Buccal mucosa dry. NECK: Supple. Tracheostomy present. CHEST: Rise symmetrical. Breath sounds diminished to bases. HEART: S1, S2. ABDOMEN: Soft. Bowel tones present. G-tube site with erythema. EXTREMITIES: Bilateral trace edema. ASSESSMENT: 1. Sepsis with shock. 2. Urinary tract infection. 3. Gastrostomy tube site cellulitis without evidence of abscess per CT and history of methicillin-resistant Staphylococcus aureus in the past. 4. Chronic respiratory failure. 5. Anemia, acute on chronic. 6. Acute kidney failure, possibly on chronic kidney disease. 7. ALLERGY TO VANCOMYCIN. PLAN: The patient is clinically stable. She is covered with broad spectrum antibiotics, pending final cultures. Dictated By: SOLEDAD LOPEZ [employer] SUR[employer]YOR for [employer]INOS/MARY Conf#: [id number] DID#: [id number] MTDD
[2017-04-15] MEDS: MEROPENEM 1 GM/100 ML (PMX) 100 ML IVPB SCH ×2 (13:20→21:40)
--- NOTE | 2017-04-15 16:08 | CONS ---
Date/Time of Note Date/Time of Note DATE: 04/15/17 TIME: 16:04 Assessment/Plan Assessment/Plan Additional Assessment/Plan cellulitis of gastrostomy plan cont antibiotics check c/s\ plan g t feeding if tolerated Consultation Date/Type/Reason Admit Date/Time April 14, 2017 at 00:00 seen because of cellulitis gastrostomy site pt non verbal Constitutional: requiring IVF, requiring O2 Psychological: confusion Social History Smoking Status: Never smoker Exam/Review of Systems Vital Signs Vitals Vital Signs Date Time Temp Pulse Resp B/P Pulse Ox O2 Delivery O2 Flow Rate FiO2 04/15/17 12:00 98.6 76 10 138/56 98 Mechanical Ventilator 04/15/17 11:00 30 Intake and Output 04/14/17 04/14/17 04/15/17 15:00 23:00 07:00 Intake Total 280 ml 1690 ml 600 ml Output Total 690 ml 465 ml 380 ml Balance -410 ml 1225 ml 220 ml Exam non verbal abd soft gastrostomt cellulitis on anti biotics ct abd gall stones and cbd stones lfts [n] Results Result Diagram: 04/15/17 0500 04/15/17 0500 Results 24 hrs Laboratory Tests Test 04/14/17 16:48 04/14/17 20:44 04/15/17 01:10 04/15/17 05:00 Bedside Glucose 234 H 150 166 White Blood Count 15.2 H Red Blood Count 2.55 L Hemoglobin 7.8 L Hematocrit 27.6 L Mean Corpuscular Volume 108.2 H Mean Corpuscular Hemoglobin 30.6 Mean Corpuscular Hemoglobin Concent 28.3 L Red Cell Distribution Width 13.5 Platelet Count 149 Mean Platelet Volume 13.0 H Neutrophils % 71.1 Lymphocytes % 21.5 Monocytes % 5.8 Eosinophils % 0.9 Basophils % 0.1 Nucleated Red Blood Cells % 0.0 Neutrophils # 10.8 H Lymphocytes # 3.3 H Monocytes # 0.9 Eosinophils # 0.1 Basophils # 0.0 Nucleated Red Blood Cells # 0.0 Sodium Level 156 H Potassium Level 4.5 Chloride Level 119 H Carbon Dioxide Level 32 H Anion Gap 10 Blood Urea Nitrogen 55 #H Creatinine 1.26 H Glucose Level 144 # Hemoglobin A1c 7.2 H Calcium Level 9.3 Magnesium Level 2.8 H Total Bilirubin 0.3 Direct Bilirubin 0.00 Indirect Bilirubin 0.3 Aspartate Amino Transf (AST/SGOT) 34 Alanine Aminotransferase (ALT/SGPT) 30 Alkaline Phosphatase 86 Total Protein 7.3 Albumin 3.0 L Globulin 4.30 H Albumin/Globulin Ratio 0.69 Test 04/15/17 05:55 04/15/17 08:36 04/15/17 13:19 Bedside Glucose 142 162 196 Medications Medications Current Medications Linezolid (Zyvox 600mg/D5W (Pmx)) 300 ml @ 300 mls/hr Q12 IVPB Last administered on 04/15/17 08:38; Admin Dose 300 MLS/HR; Start 04/14/17 at 11:00 Lorazepam (Ativan) 0.5 mg Q6H PRN IV ANXIETY; Start 04/14/17 at 11:00 Ondansetron HCl (Zofran Inj) 4 mg Q6H PRN IV NAUSEA AND/OR VOMITING; Start at 11:00 Morphine Sulfate (morphine) 2 mg Q4H PRN IV PAIN LEVEL 7-10; Start 04/14/17 at 11:00 Pantoprazole (Protonix Iv) 40 mg DAILY@06 IV Last administered on 04/15/17 05: 52; Admin Dose 40 MG; Start 04/15/17 at 06:00 Enoxaparin Sodium (Lovenox) 30 mg DAILY SC Last administered on 04/15/17 08:40 ; Admin Dose 30 MG; Start 04/15/17 at 09:00 Insulin Aspart (Novolog Insulin Pen) NOVOLOG *MILD* ALGORI... Q4 SC Last administered on 04/15/17 13:22; Admin Dose 2 UNIT; Start 04/14/17 at 13:00 Miscellaneous Information 1 ea NOTE XX ; Start 04/14/17 at 11:30 Glucose (Glutose) 15 gm Q15M PRN PO DECREASED GLUCOSE; Start 04/14/17 at 11:30 Glucose (Glutose) 22.5 gm Q15M PRN PO DECREASED GLUCOSE; Start 04/14/17 at 11: 30 Dextrose (D50w Syringe) 25 ml Q15M PRN IV DECREASED GLUCOSE; Start 04/14/17 at 11:30 Dextrose (D50w Syringe) 50 ml Q15M PRN IV DECREASED GLUCOSE; Start 04/14/17 at 11:30 Glucagon (Glucagen) 1 mg Q15M PRN IM DECREASED GLUCOSE; Start 04/14/17 at 11:30 Glucose 15 gm 15 gm Q15M PRN BUCCAL DECREASED GLUCOSE; Start 04/14/17 at 11:30 Potassium Chloride/Dextrose 1,000 ml @ 75 mls/hr [id number] IV Last administered on 04/15/17 09:29; Admin Dose 75 MLS/HR; Start 04/15/17 at 09:00 Meropenem (Merrem 1 Gm/100 ml (Pmx)) 100 ml @ 200 mls/hr Q8 IVPB Last administered on 04/15/17 13:20; Admin Dose 200 MLS/HR; Start 04/15/17 at 14:00 ISABEL BRANDON MD April 15, 2017 16:08
[2017-04-16] VITALS (24 sets, daily range): BP systolic 109–144; BP diastolic 56–70; PULSE 72–75; RESP 10–18
[2017-04-16] MEDS: INSULIN ASPART [NOVOLOG] 3 ML PEN SC SCH ×6 (01:23→21:37)
[2017-04-16] MEDS: D5W + KCL 20 MEQ 1,000 ML IV SCH (04:40)
[2017-04-16] MEDS: PANTOPRAZOLE 40 MG INJ IV SCH (05:21)
[2017-04-16] MEDS: MEROPENEM 1 GM/100 ML (PMX) 100 ML IVPB SCH ×3 (05:21→22:33)
[2017-04-16] MEDS: LINEZOLID 600 MG/D5W (PMX) 300 ML IVPB SCH ×2 (10:10→21:18)
[2017-04-16] MEDS: ENOXAPARIN 30 MG/0.3 ML SYG SC SCH (10:11)
--- NOTE | 2017-04-16 11:04 | CONS ---
Date/Time of Note Date/Time of Note DATE: 04/16/17 TIME: 11:03 Consult Date/Type/Reason Admit Date/Time April 14, 2017 at 00:00 Type of Consultation: Pulmonary ICU Ordering Provider: ALFONSO PERRY MD Subjective Patient appears comfortable this morning Objective Vital Signs Date Time Temp Pulse Resp B/P Pulse Ox O2 Delivery O2 Flow Rate FiO2 04/16/17 09:15 71 10 99 30 04/16/17 08:13 98.6 144/65 04/16/17 00:00 Mechanical Ventilator Intake and Output 04/15/17 04/15/17 04/16/17 15:00 23:00 07:00 Intake Total 813 ml 1270 ml 1015 ml Output Total 500 ml 470 ml 400 ml Balance 313 ml 800 ml 615 ml Exam PHYSICAL EXAMINATION: GENERAL: Chronically ill appearing lady, who appears intermittently agitated but not following commands. VITAL SIGNS: As above NECK: Trach site clean and intact. CARDIAC: S1, S2, no added sounds or murmurs. CHEST: Diminished air entry bilaterally. ABDOMEN: Soft, nontender. No guarding or rebound. EXTREMITIES: No cyanosis, clubbing, 2+ edema. NEUROLOGIC: Generalized weakness. Results/Medications Result Diagram: 04/15/17 0500 04/15/17 0500 Results 24 hrs Laboratory Tests Test 04/15/17 13:19 04/15/17 17:12 04/15/17 20:17 04/16/17 01:12 Bedside Glucose 196 120 162 154 Test 04/16/17 05:19 04/16/17 07:54 Bedside Glucose 201 188 Medications Current Medications Linezolid (Zyvox 600mg/D5W (Pmx)) 300 ml @ 300 mls/hr Q12 IVPB Last administered on 04/16/17t 10:10; Admin Dose 300 MLS/HR; Start 04/14/17 at 11:00 Lorazepam (Ativan) 0.5 mg Q6H PRN IV ANXIETY; Start 04/14/17 at 11:00 Ondansetron HCl (Zofran Inj) 4 mg Q6H PRN IV NAUSEA AND/OR VOMITING; Start at 11:00 Morphine Sulfate (morphine) 2 mg Q4H PRN IV PAIN LEVEL 7-10; Start 04/14/17 at 11:00 Pantoprazole (Protonix Iv) 40 mg DAILY@06 IV Last administered on 04/16/17 05: 21; Admin Dose 40 MG; Start 04/15/17 at 06:00 Enoxaparin Sodium (Lovenox) 30 mg DAILY SC Last administered on 04/16/17 10:11 ; Admin Dose 30 MG; Start 04/15/17 at 09:00 Insulin Aspart (Novolog Insulin Pen) NOVOLOG *MILD* ALGORI... Q4 SC Last administered on 04/16/17 07:59; Admin Dose 2 UNIT; Start 04/14/17 at 13:00 Miscellaneous Information 1 ea NOTE XX ; Start 04/14/17 at 11:30 Glucose (Glutose) 15 gm Q15M PRN PO DECREASED GLUCOSE; Start 04/14/17 at 11:30 Glucose (Glutose) 22.5 gm Q15M PRN PO DECREASED GLUCOSE; Start 04/14/17 at 11: 30 Dextrose (D50w Syringe) 25 ml Q15M PRN IV DECREASED GLUCOSE; Start 04/14/17 at 11:30 Dextrose (D50w Syringe) 50 ml Q15M PRN IV DECREASED GLUCOSE; Start 04/14/17 at 11:30 Glucagon (Glucagen) 1 mg Q15M PRN IM DECREASED GLUCOSE; Start 04/14/17 at 11:30 Glucose 15 gm 15 gm Q15M PRN BUCCAL DECREASED GLUCOSE; Start 04/14/17 at 11:30 Potassium Chloride/Dextrose 1,000 ml @ 75 mls/hr [id number] IV Last administered on 04/16/17 04:40; Admin Dose 75 MLS/HR; Start 04/15/17 at 09:00 Meropenem (Merrem 1 Gm/100 ml (Pmx)) 100 ml @ 200 mls/hr Q8 IVPB Last administered on 04/16/17 05:21; Admin Dose 200 MLS/HR; Start 04/15/17 at 14:00 Assessment/Plan Chief Complaint/Hosp Course IMPRESSION: 1. Urinary tract infection with leukocytosis. G-tube site cellulitis 2. Ventilatory-dependent respiratory failure. 3. Encephalopathy. 4. Dysphagia with G-tube. 5. 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 Hypernatremia PLAN: 1. Continue broad-spectrum antibiotics. 2. Continue mechanical ventilation. 3. Pulmonary toilet. 4. Tube feeding. 5. DVT and GI prophylaxis. 6. Continue free water flushes 7. Consider transfusion 1 unit packed red blood cells Consider transfer to [facility] Problems: MARINO PRITCHETT MD, [facility] April 16, 2017 11:04
[2017-04-16 11:20] LABS: ADD SCAN DIFF NO
[2017-04-16 11:40] LABS: ABNORMAL IP MESSAGE 1; BASOPHILS % 0.1 % (0.0-2.0); EOSINOPHILS # 0.1 10^3/ul (0.0-0.5); EOSINOPHILS % 1.2 % (0.0-7.0); HEMATOCRIT 25.5 % (37.0-47.0); HEMOGLOBIN 7.4 g/dl (12.0-16.0); LYMPHOCYTES # 1.4 10^3/ul (0.8-2.9); LYMPHOCYTES % 12.9 % (15.0-51.0); MEAN CORPUSCULAR HEMOGLOBIN 30.6 pg (29.0-33.0); MEAN CORPUSCULAR VOLUME 105.4 fl (82.0-101.0); MEAN PLATELET VOLUME 13.3 fl (7.4-10.4); MONOCYTE # 0.5 10^3/ul (0.3-0.9); MONOCYTES % 4.3 % (0.0-11.0); NEUTROPHILS % 80.7 % (39.0-77.0); PLATELET COUNT 141 10^3/UL (140-415); RED BLOOD COUNT 2.42 10^6/ul (4.20-5.40); RED CELL DISTRIBUTION WIDTH 13.2 % (11.5-14.5); WHITE BLOOD COUNT 11.2 10^3/ul (4.8-10.8)
[2017-04-16 11:50] LABS: ALBUMIN 2.6 g/dl (3.3-4.9); POTASSIUM 4.4 mmol/L (3.5-5.1)
[2017-04-16 11:52] LABS: ALBUMIN/GLOBULIN RATIO 0.74; BILIRUBIN,INDIRECT 0.1 mg/dl (0-1.1); BILIRUBIN,TOTAL 0.1 mg/dl (0.2-1.3); CREATININE 0.89 mg/dl (0.44-1.00); MAGNESIUM 2.4 mg/dl (1.7-2.5); TOTAL PROTEIN 6.1 g/dl (6.1-8.1)
[2017-04-16 11:53] LABS: CALCIUM 8.3 mg/dl (8.4-10.2)
--- NOTE | 2017-04-16 11:55 | PN ---
Date/Time of Note Date/Time of Note DATE: 04/16/17 TIME: 11:38 Assessment/Plan VTE Prophylaxis VTE Prophylaxis Intervention: LMWH Lines/Catheters IV Catheter Type (from Nrsg): Peripheral IV Urinary Cath still in place: Yes Reason Cath still needed: other (indicate) (chronic celis catheter ) Assessment/Plan Assessment/Plan 86 yo female with 1. Septic shock secondary to urinary tract infection and also with noted G- tube site cellulitis with hx of MRSA infection. Urine cx with ESBL sensitive to Carbapenem and also C diff positive. Continue IVF, Zyvox and Meropenem for now, and will add Flagyl. Follow up further ID recs Blood culture NGTD Awaiting labs this AM 2. Acute kidney injury likely ATN and pre renal secondary to septic shock. Appreciate recs from Dr Mcdaniel Continue IVF and avoiding Nephrotoxic meds Follow up labs this AM 3. Hypernatremia. Awaiting labs today, Nephro adjusting IVF 4. G-tube site cellulitis. On Zyvox and Meropenem. ? leaking G tube, Dr Thompson following 5. Ventilator-dependent respiratory failure, status post tracheostomy. Stable on current vent setting and Pulmonary following 6. Dysphagia, status post gastrostomy tube placement. Appreciate assistance form Dr Thompson, TF resumed with free H2O CT abdo/pelvis shows no abscess. 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 Good UOP 9. Chronic anemia: monitor Hb for no acute bleeding seen. 10. Hypertension: off meds and BP stable 11. Hyperlipidemia: resume statins later. Prophylaxis: Lovenox for DVT ppx and Protonix for GI ppx Disposition: Telemetry level of care on admission apparently was boarding in ICU as tele Follow up GI, Nephro, and ID recs today . Subjective 24 Hr Interval Summary Free Text/Dictation Patient remains stable but leaking G tube per RN Awaiting labs today On contact isolation for ESBL UTI and C diff positive Exam/Review of Systems Vital Signs Vitals Vital Signs Date Time Temp Pulse Resp B/P Pulse Ox O2 Delivery O2 Flow Rate FiO2 04/16/17 11:19 98.6 75 18 124/59 96 04/16/17 09:15 30 04/16/17 00:00 Mechanical Ventilator Intake and Output 04/15/17 04/15/1704/16/17 15:00 23:00 07:00 Intake Total 813 ml 1270 ml 1015 ml Output Total 500 ml 470 ml 400 ml Balance 313 ml 800 ml 615 ml Exam Constitutional: alert, frail, other (vent dependent ) Neck: other (s/p tracheostomy ) Respiratory: clear to auscultation, other (on Vent ) Cardiovascular: nl pulses, regular rate and rhythm Gastrointestinal: non-tender, other (G tube in place and leaking gastric content per RN ), soft Musculoskeletal: muscle tone (poor), other (no edema, clubbing or cyanosis ) Extremities: normal pulses 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, lethargic, other (MS at baseline ) Results Result Diagram: 04/15/17 0500 04/15/17 0500 Results 24 hrs Laboratory Tests Test 04/15/17 13:19 04/15/17 17:12 04/15/17 20:17 04/16/17 01:12 Bedside Glucose 196 120 162 154 Test 04/16/17 05:19 04/16/17 07:54 Bedside Glucose 201 188 Medications Medications Current Medications Linezolid (Zyvox 600mg/D5W (Pmx)) 300 ml @ 300 mls/hr Q12 IVPB Last administered on 04/16/17 10:10; Admin Dose 300 MLS/HR; Start 04/14/17 at 11:00 Lorazepam (Ativan) 0.5 mg Q6H PRN IV ANXIETY; Start 04/14/17 at 11:00 Ondansetron HCl (Zofran Inj) 4 mg Q6H PRN IV NAUSEA AND/OR VOMITING; Start at 11:00 Morphine Sulfate (morphine) 2 mg Q4H PRN IV PAIN LEVEL 7-10; Start 04/14/17 at 11:00 Pantoprazole (Protonix Iv) 40 mg DAILY@06 IV Last administered on 04/16/17 05: 21; Admin Dose 40 MG; Start 04/15/17 at 06:00 Enoxaparin Sodium (Lovenox) 30 mg DAILY SC Last administered on 04/16/17 10:11 ; Admin Dose 30 MG; Start 04/15/17 at 09:00 Insulin Aspart (Novolog Insulin Pen) NOVOLOG *MILD* ALGORI... Q4 SC Last administered on 04/16/17 07:59; Admin Dose 2 UNIT; Start 04/14/17 at 13:00 Miscellaneous Information 1 ea NOTE XX ; Start 04/14/17 at 11:30 Glucose (Glutose) 15 gm Q15M PRN PO DECREASED GLUCOSE; Start 04/14/17 at 11:30 Glucose (Glutose) 22.5 gm Q15M PRN PO DECREASED GLUCOSE; Start 04/14/17 at 11: 30 Dextrose (D50w Syringe) 25 ml Q15M PRN IV DECREASED GLUCOSE; Start 04/14/17 at 11:30 Dextrose (D50w Syringe) 50 ml Q15M PRN IV DECREASED GLUCOSE; Start 04/14/17 at 11:30 Glucagon (Glucagen) 1 mg Q15M PRN IM DECREASED GLUCOSE; Start 04/14/17 at 11:30 Glucose 15 gm 15 gm Q15M PRN BUCCAL DECREASED GLUCOSE; Start 04/14/17 at 11:30 Potassium Chloride/Dextrose 1,000 ml @ 75 mls/hr [id number] IV Last administered on 04/16/17 04:40; Admin Dose 75 MLS/HR; Start 04/15/17 at 09:00 Meropenem (Merrem 1 Gm/100 ml (Pmx)) 100 ml @ 200 mls/hr Q8 IVPB Last administered on 04/16/17 05:21; Admin Dose 200 MLS/HR; Start 04/15/17 at 14:00 CINTIA GUSTAFSON April 16, 2017 11:48
--- NOTE | 2017-04-16 12:59 | CONS ---
Date/Time of Note Date/Time of Note DATE: 04/16/17 TIME: 12:57 Assessment/Plan Assessment/Plan Additional Assessment/Plan 1. Acute kidney injury with high BUN 89, likely secondary to septic shock from sepsis secondary to urinary tract infections. 2. Septic shock secondary to urinary tract infection. 3. Hypernatremia. Sodium 150 secondary to large free water deficit. 4. G-tube site cellulitis. 5. Ventilator-dependent respiratory failure, status post tracheostomy. 6. Dysphagia, status post gastrostomy tube placement. 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 9. Hypertension. 10. Hyperlipidemia. PLAN: good urine output 1.5 liter, BUN/Cr improvig, Na improving with IVF D5W continue D5W [id number] KCL at 75 cc/hr Vent Management per pulmonary Will continue to follow up Consultation Date/Type/Reason Admit Date/Time April 14, 2017 at 00:00 Initial Consult Date March Type of Consultation: NEPHROLOGY Referring Provider: ALFONSO PERRY MD 24 HR Interval Summary Free Text/Dictation creatinine and Na improving, stable on ventilator setting Exam/Review of Systems Vital Signs Vitals Vital Signs Date Time Temp Pulse Resp B/P Pulse Ox O2 Delivery O2 Flow Rate FiO2 04/16/17 12:14 73 04/16/17 11:19 98.6 18 124/59 96 04/16/17 11:10 30 04/16/17 00:00 Mechanical Ventilator Intake and Output 04/15/17 04/15/17 04/16/17 15:00 23:00 07:00 Intake Total 813 ml 1270 ml 1015 ml Output Total 500 ml 470 ml 400 ml Balance 313 ml 800 ml 615 ml Exam GENERAL: on ventilator NECK: Supple, no JVD. The patient has a tracheostomy site. LUNGS: Decreased breath sounds at both lung bases, minimal expiratory wheezing present. HEART: S1, S2, with regular rhythm without murmur or gallop. ABDOMEN: Soft, nontender, G-tube site has some excoriation and redness around the stoma. There is no guarding or rebound tenderness. EXTREMITIES: Bilateral contractures. Results Result Diagram: 04/16/17 1056 04/16/17 1056 Results 24 hrs Laboratory Tests Test 04/15/17 13:19 04/15/17 17:12 04/15/17 20:17 04/16/17 01:12 Bedside Glucose 196 120 162 154 Test 04/16/17 05:19 04/16/17 07:54 04/16/17 10:56 Bedside Glucose 201 188 White Blood Count 11.2 #H Red Blood Count 2.42 L Hemoglobin 7.4 L Hematocrit 25.5 L Mean Corpuscular Volume 105.4 H Mean Corpuscular Hemoglobin 30.6 Mean Corpuscular Hemoglobin Concent 29.0 L Red Cell Distribution Width 13.2 Platelet Count 141 Mean Platelet Volume 13.3 H Neutrophils % 80.7 H Lymphocytes % 12.9 L Monocytes % 4.3 Eosinophils % 1.2 Basophils % 0.1 Nucleated Red Blood Cells % 0.0 Neutrophils # 9.0 H Lymphocytes # 1.4 Monocytes # 0.5 Eosinophils # 0.1 Basophils # 0.0 Nucleated Red Blood Cells # 0.0 Sodium Level 149 H Potassium Level 4.4 Chloride Level 111 H Carbon Dioxide Level 28 Anion Gap 14 Blood Urea Nitrogen 33 #H Creatinine 0.89 Glucose Level 227 H Calcium Level 8.3 L Phosphorus Level 3.0 Magnesium Level 2.4 Total Bilirubin 0.1 L Direct Bilirubin 0.00 Indirect Bilirubin 0.1 Aspartate Amino Transf (AST/SGOT) 24 Alanine Aminotransferase (ALT/SGPT) 24 Alkaline Phosphatase 86 Total Protein 6.1 # Albumin 2.6 L Globulin 3.50 H Albumin/Globulin Ratio 0.74 Medications Medications Current Medications Linezolid (Zyvox 600mg/D5W (Pmx)) 300 ml @ 300 mls/hr Q12 IVPB Last administered on 04/16/17 10:10; Admin Dose 300 MLS/HR; Start 04/14/17 at 11:00 Lorazepam (Ativan) 0.5 mg Q6H PRN IV ANXIETY; Start 04/14/17 at 11:00 Ondansetron HCl (Zofran Inj) 4 mg Q6H PRN IV NAUSEA AND/OR VOMITING; Start at 11:00 Morphine Sulfate (morphine) 2 mg Q4H PRN IV PAIN LEVEL 7-10; Start 04/14/17 at 11:00 Pantoprazole (Protonix Iv) 40 mg DAILY@06 IV Last administered on 04/16/17 05: 21; Admin Dose 40 MG; Start 04/15/17 at 06:00 Enoxaparin Sodium (Lovenox) 30 mg DAILY SC Last administered on 04/16/17 10:11 ; Admin Dose 30 MG; Start 04/15/17 at 09:00 Insulin Aspart (Novolog Insulin Pen) NOVOLOG *MILD* ALGORI... Q4 SC Last administered on 04/16/17 07:59; Admin Dose 2 UNIT; Start 04/14/17 at 13:00 Miscellaneous Information 1 ea NOTE XX ; Start 04/14/17 at 11:30 Glucose (Glutose) 15 gm Q15M PRN PO DECREASED GLUCOSE; Start 04/14/17 at 11:30 Glucose (Glutose) 22.5 gm Q15M PRN PO DECREASED GLUCOSE; Start 04/14/17 at 11: 30 Dextrose (D50w Syringe) 25 ml Q15M PRN IV DECREASED GLUCOSE; Start 04/14/17 at 11:30 Dextrose (D50w Syringe) 50 ml Q15M PRN IV DECREASED GLUCOSE; Start 04/14/17 at 11:30 Glucagon (Glucagen) 1 mg Q15M PRN IM DECREASED GLUCOSE; Start 04/14/17 at 11:30 Glucose 15 gm 15 gm Q15M PRN BUCCAL DECREASED GLUCOSE; Start 04/14/17 at 11:30 Potassium Chloride/Dextrose 1,000 ml @ 75 mls/hr [id number] IV Last administered on 04/16/17 04:40; Admin Dose 75 MLS/HR; Start 04/15/17 at 09:00 Meropenem (Merrem 1 Gm/100 ml (Pmx)) 100 ml @ 200 mls/hr Q8 IVPB Last administered on 04/16/17 05:21; Admin Dose 200 MLS/HR; Start 04/15/17 at 14:00 Metronidazole (Flagyl) 500 mg Q8 GTB ; Start 04/16/17 at 13:00 FERNANDO CLARK MD April 16, 2017 12:59
[2017-04-16] MEDS ORDERED: FLUCONAZOLE 100 MG TAB PO ONE (15:00)
--- NOTE | 2017-04-16 15:04 | PN ---
DATE: 04/16/2017 SUBJECTIVE: No acute changes. The patient was transferred to telemetry. She is lying comfortably in bed. No fevers. MICROBIOLOGY: Urine culture growing E. coli ESBL. Endotracheal aspirate growing gram-negative rods . G-tube site culture growing yeast. Stool for C. diff came back positive. INDWELLINGS: Trach, PEG, Pérez catheter. LABORATORY DATA: WBC 11.2, H and H 7.4 and 25.5, platelets 141, neutrophils 80.7. BUN 33, creatini ne 0.89. ANTIMICROBIALS 1. Flagyl. 2. Meropenem. 3. Zyvox. ALLERGIES: VANCOMYCIN. PHYSICAL EXAMINATION: GENERAL: Fragile, elderly woman who is in no distress. HEENT: Head atraumatic, normocephalic. Sclerae anicteric. Buccal mucosa dry. NECK: Supple. Tracheostomy present. CHEST: Rise symmetrical. Breath sounds diminished to bases. HEART: S1, S2. ABDOMEN: Soft. Bowel sounds present. EXTREMITIES: Without cyanosis. ASSESSMENT: 1. Severe sepsis status post shock. 2. Clostridium difficile colitis. 3. Escherichia coli extended-spectrum beta-lactamase urinary tract infection. 4. G-tube site cellulitis. 5. Chronic respiratory failure, questionable pneumonia. 6. Acute on chronic anemia. 7. Acute kidney failure, possibly on chronic kidney disease. PLAN: The patient remains stable. White blood cells again tracing down. We will continue her on c urrent regimen. Add nystatin topical to G-tube site and start her on Diflucan. Will await for laney l cultures and may discontinue Zyvox if no indication. Dictated By: SOLEDAD LOPEZ SPEEDER MACHINE OPERATOR for JUWAN RECINOS/MARY Conf#: [id number] DID#: [id number]
[2017-04-16] MEDS: metroNIDAZOLE 500 MG TAB GTB SCH ×2 (15:06→21:18)
[2017-04-16] MEDS: NYSTATIN 15 GM OINT TOP SCH (21:18)
[2017-04-17] VITALS (23 sets, daily range): BP systolic 112–143; BP diastolic 53–65; PULSE 70–78; RESP 13–24
[2017-04-17] MEDS: D5W + KCL 20 MEQ 1,000 ML IV SCH ×2 (01:08→15:17)
[2017-04-17] MEDS: INSULIN ASPART [NOVOLOG] 3 ML PEN SC SCH ×5 (01:13→18:00)
[2017-04-17] MEDS: MEROPENEM 1 GM/100 ML (PMX) 100 ML IVPB SCH ×3 (05:48→21:55)
[2017-04-17] MEDS: PANTOPRAZOLE 40 MG INJ IV SCH (05:49)
[2017-04-17] MEDS: metroNIDAZOLE 500 MG TAB GTB SCH ×3 (05:49→21:55)
[2017-04-17 06:35] LABS: ADD SCAN DIFF NO
[2017-04-17 06:44] LABS: BASOPHILS % 0.1 % (0.0-2.0); EOSINOPHILS # 0.1 10^3/ul (0.0-0.5); EOSINOPHILS % 1.1 % (0.0-7.0); HEMATOCRIT 24.8 % (37.0-47.0); HEMOGLOBIN 7.4 g/dl (12.0-16.0); LYMPHOCYTES # 1.9 10^3/ul (0.8-2.9); LYMPHOCYTES % 17.2 % (15.0-51.0); MEAN CORPUSCULAR HEMOGLOBIN 31.4 pg (29.0-33.0); MEAN CORPUSCULAR HGB CONC 29.8 g/dl (32.0-37.0); MEAN CORPUSCULAR VOLUME 105.1 fl (82.0-101.0); MONOCYTE # 0.5 10^3/ul (0.3-0.9); MONOCYTES % 4.4 % (0.0-11.0); NEUTROPHIL # 8.2 10^3/ul (1.6-7.5); NEUTROPHILS % 76.3 % (39.0-77.0); PLATELET COUNT 147 10^3/UL (140-415); RED BLOOD COUNT 2.36 10^6/ul (4.20-5.40); RED CELL DISTRIBUTION WIDTH 13.1 % (11.5-14.5); WHITE BLOOD COUNT 10.8 10^3/ul (4.8-10.8)
[2017-04-17 07:32] LABS: POTASSIUM 4.6 mmol/L (3.5-5.1)
[2017-04-17 07:34] LABS: CREATININE 0.93 mg/dl (0.44-1.00)
[2017-04-17 07:35] LABS: CALCIUM 8.3 mg/dl (8.4-10.2)
[2017-04-17 07:39] LABS: PHOSPHORUS 2.4 mg/dl (2.5-4.9)
[2017-04-17 07:40] LABS: MAGNESIUM 2.1 mg/dl (1.7-2.5)
[2017-04-17] MEDS: FLUCONAZOLE 100 MG TAB PO SCH (08:38)
[2017-04-17] MEDS: NYSTATIN 15 GM OINT TOP SCH ×3 (08:38→21:54)
[2017-04-17] MEDS: LINEZOLID 600 MG/D5W (PMX) 300 ML IVPB SCH (08:38)
[2017-04-17] MEDS: ENOXAPARIN 30 MG/0.3 ML SYG SC SCH (08:59)
--- NOTE | 2017-04-17 11:17 | CONS ---
Date/Time of Note Date/Time of Note DATE: 04/17/17 TIME: 11:16 Assessment/Plan Assessment/Plan Chief Complaint/Hosp Course ID PROGRESS NOTE CURRENT ABX: ABD DAY # 4 => Zyvox, Merrem, Diflucan, Flagyl GT 24H INTERVAL SUMMARY * 86 yo F => admitted w/sepsis, now with low grade TMax 10.0, WBC normalized on current ABX * Non-communicative on the Vent * 04/14/17 CXR IMPRESSION:1. Chronic interstitial age-related changes of the lungs are noted with improved aeration compared to the prior study and no evidence of acute intrathoracic pathology. 2. Nonspecific elevation of the right hemidiaphragm but 3. Tracheostomy in good position. * MICRO: (+)C.Diff Colitis, GT-> Glabrata; UTI = E.coli/ESBL low colony counts, Trach (+)PSAR * RESPIRATORY CULTURE Preliminary Organism 1 PSEUDOMONAS AERUGINOSA QUANTITY 2+ P.AERUG M.I.C. RX --------- --- AMIKACIN 8 S CEFEPIME <=1 S CEFTAZIDIME 2 S CIPROFLOXACIN >=4 R GENTAMICIN 4 S IMIPENEM >=16 R LEVOFLOXACIN >=8 R TOBRAMYCIN 2 S PHYSICAL EXAMINATION: VITAL SIGNS: Afebrile, VSS, NAD GENERAL: 86 yo F, chronic debility on the Vent, non-communicative HEENT: Unremarkable NECK: TRACH secure to Vent LUNGS: Equal chest rise without dyspnea on observation HEART: RRR ABDOMEN: Soft, PEG site w/maceration, excoriation dermatitis EXTREMITIES: Warm, dependent edema ID IMPRESSION: 86 yo F admit with: 1. Severe sepsis status post shock = RESOLVED * Blood cx (-) 2. Clostridium difficile colitis. 3. Escherichia coli extended-spectrum beta-lactamase urinary tract infection. * 04/13/17: URINE CULTURE Final Organism 1 ESCHERICHIA COLI (ESBL) COLONY COUNT 30,000 - 40,000 CFU/ml . MULTI DRUG RESISTANT ORGANISM 4. G-tube site cellulitis = Glabrata 5. 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 Acute on chronic anemia. 7. Acute kidney failure, possibly on chronic kidney disease. (-) MRSA Nares INVASIVES: PIV CURRENT ABX: ABD DAY # 4 => Zyvox, Merrem, Diflucan, Flagyl ID RECOMMENDATION 1. DC Zyvox 2. Anticipate short course of Merrem for low colony count UTI 3. Continue Flagyl for C.Diff & Diflucan for fungal dermatitis under breasts . Problems: Consultation Date/Type/Reason Admit Date/Time April 14, 2017 at 00:00 Initial Consult Date Type of Consultation: ID Referring Provider: ALFONSO PERRY MD Exam/Review of Systems Vital Signs Vitals Vital Signs Date Time Temp Pulse Resp B/P Pulse Ox O2 Delivery O2 Flow Rate FiO2 04/17/17 09:46 74 24 98 30 04/17/17 07:47 98.7 133/59 04/16/17 00:00 Mechanical Ventilator Intake and Output 04/16/17 04/16/17 04/17/17 15:00 23:00 07:00 Intake Total 2347.5 ml 1110 ml Output Total 550 ml 700 ml Balance 1797.5 ml 410 ml Results Result Diagram: 04/17/17 0555 04/17/17 0555 Results 24 hrs Laboratory Tests Test 04/16/17 13:06 04/16/17 17:33 04/16/17 21:20 04/17/17 01:04 Bedside Glucose 244 H 187 145 158 Test 04/17/17 05:06 04/17/17 05:49 04/17/17 05:50 04/17/17 05:55 Bedside Glucose 163 169 Phosphorus Level 2.4 L Magnesium Level 2.1 White Blood Count 10.8 Red Blood Count 2.36 L Hemoglobin 7.4 L Hematocrit 24.8 L Mean Corpuscular Volume 105.1 H Mean Corpuscular Hemoglobin 31.4 Mean Corpuscular Hemoglobin Concent 29.8 L Red Cell Distribution Width 13.1 Platelet Count 147 Mean Platelet Volume 13.0 H Neutrophils % 76.3 Lymphocytes % 17.2 Monocytes % 4.4 Eosinophils % 1.1 Basophils % 0.1 Nucleated Red Blood Cells % 0.0 Neutrophils # 8.2 H Lymphocytes # 1.9 Monocytes # 0.5 Eosinophils # 0.1 Basophils # 0.0 Nucleated Red Blood Cells # 0.0 Sodium Level 144 Potassium Level 4.6 Chloride Level 106 Carbon Dioxide Level 27 Anion Gap 16 Blood Urea Nitrogen 26 H Creatinine 0.93 Glucose Level 170 Calcium Level 8.3 L Test 04/17/17 08:36 Bedside Glucose 189 Medications Medications Current Medications Linezolid (Zyvox 600mg/D5W (Pmx)) 300 ml @ 300 mls/hr Q12 IVPB Last administered on 04/17/17 08:38; Admin Dose 300 MLS/HR; Start 04/14/17 at 11:00 Lorazepam (Ativan) 0.5 mg Q6H PRN IV ANXIETY; Start 04/14/17 at 11:00 Ondansetron HCl (Zofran Inj) 4 mg Q6H PRN IV NAUSEA AND/OR VOMITING; Start at 11:00 Morphine Sulfate (morphine) 2 mg Q4H PRN IV PAIN LEVEL 7-10; Start 04/14/17 at 11:00 Pantoprazole (Protonix Iv) 40 mg DAILY@06 IV Last administered on 04/17/17 05: 49; Admin Dose 40 MG; Start 04/15/17 at 06:00 Enoxaparin Sodium (Lovenox) 30 mg DAILY SC Last administered on 04/17/17 08:59 ; Admin Dose 30 MG; Start 04/15/17 at 09:00 Insulin Aspart (Novolog Insulin Pen) NOVOLOG *MILD* ALGORI... Q4 SC Last administered on 04/17/17 08:59; Admin Dose 2 UNIT; Start 04/14/17 at 13:00 Miscellaneous Information 1 ea NOTE XX ; Start 04/14/17 at 11:30 Glucose (Glutose) 15 gm Q15M PRN PO DECREASED GLUCOSE; Start 04/14/17 at 11:30 Glucose (Glutose) 22.5 gm Q15M PRN PO DECREASED GLUCOSE; Start 04/14/17 at 11: 30 Dextrose (D50w Syringe) 25 ml Q15M PRN IV DECREASED GLUCOSE; Start 04/14/17 at 11:30 Dextrose (D50w Syringe) 50 ml Q15M PRN IV DECREASED GLUCOSE; Start 04/14/17 at 11:30 Glucagon (Glucagen) 1 mg Q15M PRN IM DECREASED GLUCOSE; Start 04/14/17 at 11:30 Glucose 15 gm 15 gm Q15M PRN BUCCAL DECREASED GLUCOSE; Start 04/14/17 at 11:30 Potassium Chloride/Dextrose 1,000 ml @ 75 mls/hr [id number] IV Last administered on 04/17/17 01:08; Admin Dose 75 MLS/HR; Start 04/15/17 at 09:00 Meropenem (Merrem 1 Gm/100 ml (Pmx)) 100 ml @ 200 mls/hr Q8 IVPB Last administered on 04/17/17 05:48; Admin Dose 200 MLS/HR; Start 04/15/17 at 14:00 Metronidazole (Flagyl) 500 mg Q8 GTB Last administered on 04/17/17 05:49; Admin Dose 500 MG; Start 04/16/17 at 13:00 Fluconazole (Diflucan) 100 mg DAILY PO Last administered on 04/17/17 08:38; Admin Dose 100 MG; Start 04/17/17 at 09:00 Nystatin (Nystatin Oint) 1 applic TID TOP Last administered on 04/17/17 08:38 ; Admin Dose 1 APPLIC; Start 04/16/17 at 21:00 KEITH SEQUEIRA NP April 17, 2017 11:17
[2017-04-17] MEDS ORDERED: SOD CHLORIDE 0.9% 250 ML IV* ONE (11:20)
--- NOTE | 2017-04-17 11:42 | PN ---
Date/Time of Note Date/Time of Note DATE: 04/17/17 TIME: 11:22 Assessment/Plan VTE Prophylaxis VTE Prophylaxis Intervention: LMWH Lines/Catheters IV Catheter Type (from Nrsg): Peripheral IV Urinary Cath still in place: Yes Reason Cath still needed: other (indicate) (chronic celis catheter ) Assessment/Plan Assessment/Plan 86 yo female with 1. Septic shock secondary to urinary tract infection and also with noted G- tube site cellulitis with hx of MRSA infection. Urine cx with ESBL sensitive to Carbapenem and also C diff positive. Continue IVF, Zyvox and Meropenem, Flagyl and Diflucan. Per ID OK to d/c Zyvox if final cx with No MRSA Blood culture NGTD Leukocytosis resolved 2. Acute kidney injury likely ATN and pre renal secondary to septic shock. Appreciate recs from Dr Mcdaniel. Resolved. Continue IVF and avoiding Nephrotoxic meds. Further recs per Nephro. 3. Hypernatremia: Resolved. IVF 4. G-tube site cellulitis. On Zyvox and Meropenem. ? leaking G tube, Dr Thompson following 5. Ventilator-dependent respiratory failure, status post tracheostomy. Stable on current vent setting and Pulmonary following 6. Dysphagia, status post gastrostomy tube placement. Appreciate assistance form Dr Thompson, TF resumed with free H2O CT abdo/pelvis shows no abscess. 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 Good UOP 9. Chronic anemia: Hb < 7.5 x 2 days now, Transfuse 1 unit pRBC today. No acute bleeding. 10. Hypertension: off meds and BP stable 11. Hyperlipidemia: resume statins later. Prophylaxis: Lovenox for DVT ppx and Protonix for GI ppx Disposition: Telemetry level of care. Follow up GI, Nephro, and ID recs today. D /c plan back to SNF in the next 24 to 48 hrs Subjective 24 Hr Interval Summary Free Text/Dictation Patient awake and alert, at baseline, chronic vent dependent and with also chronic Celis catheter Afebrile and WBC down to normal Transfuse 1 unit pRBC today for Hb<7.5 Exam/Review of Systems Vital Signs Vitals Vital Signs Date Time Temp Pulse Resp B/P Pulse Ox O2 Delivery O2 Flow Rate FiO2 04/17/17 09:46 74 24 98 30 04/17/17 07:47 98.7 133/59 04/16/17 00:00 Mechanical Ventilator Intake and Output 04/16/17 04/16/17 04/17/17 15:00 23:00 07:00 Intake Total 2347.5 ml 1110 ml Output Total 550 ml 700 ml Balance 1797.5 ml 410 ml Exam Constitutional: alert, non-verbal, oriented (x1 or 2 ), other (s/p tracheostomy and on Vent ) Neck: other (s/p tracheostomy ) Respiratory: clear to auscultation, normal air movement Cardiovascular: nl pulses, regular rate and rhythm Gastrointestinal: non-tender, soft Musculoskeletal: nl extremities to inspection Extremities: normal pulses, other (no edema, clubbing or cyanosis ) Neurological: VETERINARY TECHNICIAN INSTRUCTOR II-XII intact, other (mental status at baseline, s/p tracheostomy ) Results Result Diagram: 04/17/17 0555 04/17/17 0555 Results 24 hrs Laboratory Tests Test 04/16/17 13:06 04/16/17 17:33 04/16/17 21:20 04/17/17 01:04 Bedside Glucose 244 H 187 145 158 Test 04/17/17 05:06 04/17/17 05:49 04/17/17 05:50 04/17/17 05:55 Bedside Glucose 163 169 Phosphorus Level 2.4 L Magnesium Level 2.1 White Blood Count 10.8 Red Blood Count 2.36 L Hemoglobin 7.4 L Hematocrit 24.8 L Mean Corpuscular Volume 105.1 H Mean Corpuscular Hemoglobin 31.4 Mean Corpuscular Hemoglobin Concent 29.8 L Red Cell Distribution Width 13.1 Platelet Count 147 Mean Platelet Volume 13.0 H Neutrophils % 76.3 Lymphocytes % 17.2 Monocytes % 4.4 Eosinophils % 1.1 Basophils % 0.1 Nucleated Red Blood Cells % 0.0 Neutrophils # 8.2 H Lymphocytes # 1.9 Monocytes # 0.5 Eosinophils # 0.1 Basophils # 0.0 Nucleated Red Blood Cells # 0.0 Sodium Level 144 Potassium Level 4.6 Chloride Level 106 Carbon Dioxide Level 27 Anion Gap 16 Blood Urea Nitrogen 26 H Creatinine 0.93 Glucose Level 170 Calcium Level 8.3 L Test 04/17/17 08:36 Bedside Glucose 189 Medications Medications Current Medications Linezolid (Zyvox 600mg/D5W (Pmx)) 300 ml @ 300 mls/hr Q12 IVPB Last administered on 04/17/17 08:38; Admin Dose 300 MLS/HR; Start 04/14/17 at 11:00 Lorazepam (Ativan) 0.5 mg Q6H PRN IV ANXIETY; Start 04/14/17 at 11:00 Ondansetron HCl (Zofran Inj) 4 mg Q6H PRN IV NAUSEA AND/OR VOMITING; Start at 11:00 Morphine Sulfate (morphine) 2 mg Q4H PRN IV PAIN LEVEL 7-10; Start 04/14/17 at 11:00 Pantoprazole (Protonix Iv) 40 mg DAILY@06 IV Last administered on 04/17/17 05: 49; Admin Dose 40 MG; Start 04/15/17 at 06:00 Enoxaparin Sodium (Lovenox) 30 mg DAILY SC Last administered on 04/17/17 08:59 ; Admin Dose 30 MG; Start 04/15/17 at 09:00 Insulin Aspart (Novolog Insulin Pen) NOVOLOG *MILD* ALGORI... Q4 SC Last administered on 04/17/17 08:59; Admin Dose 2 UNIT; Start 04/14/17 at 13:00 Miscellaneous Information 1 ea NOTE XX ; Start 04/14/17 at 11:30 Glucose (Glutose) 15 gm Q15M PRN PO DECREASED GLUCOSE; Start 04/14/17 at 11:30 Glucose (Glutose) 22.5 gm Q15M PRN PO DECREASED GLUCOSE; Start 04/14/17 at 11: 30 Dextrose (D50w Syringe) 25 ml Q15M PRN IV DECREASED GLUCOSE; Start 04/14/17 at 11:30 Dextrose (D50w Syringe) 50 ml Q15M PRN IV DECREASED GLUCOSE; Start 04/14/17 at 11:30 Glucagon (Glucagen) 1 mg Q15M PRN IM DECREASED GLUCOSE; Start 04/14/17 at 11:30 Glucose 15 gm 15 gm Q15M PRN BUCCAL DECREASED GLUCOSE; Start 04/14/17 at 11:30 Potassium Chloride/Dextrose 1,000 ml @ 75 mls/hr [id number] IV Last administered on 04/17/17 01:08; Admin Dose 75 MLS/HR; Start 04/15/17 at 09:00 Meropenem (Merrem 1 Gm/100 ml (Pmx)) 100 ml @ 200 mls/hr Q8 IVPB Last administered on 04/17/17 05:48; Admin Dose 200 MLS/HR; Start 04/15/17 at 14:00 Metronidazole (Flagyl) 500 mg Q8 GTB Last administered on 04/17/17 05:49; Admin Dose 500 MG; Start 04/16/17 at 13:00 Fluconazole (Diflucan) 100 mg DAILY PO Last administered on 04/17/17 08:38; Admin Dose 100 MG; Start 04/17/17 at 09:00 Nystatin (Nystatin Oint) 1 applic TID TOP Last administered on 04/17/17 08:38 ; Admin Dose 1 APPLIC; Start 04/16/17 at 21:00 CINTIA GUSTAFSON April 17, 2017 11:32
--- NOTE | 2017-04-17 11:51 | CONS ---
DATE OF ADMISSION: 04/14/2017 DATE OF CONSULTATION: 04/17/2017 FOLLOWUP CONSULTATION This 86-year-old female has been admitted here. She was in ICU, now transferred to telemetry. She is on a respirator. She had a G-tube site infection that has been cared for, for the cellulitis. T he wound care nurse has a Band-Aid after cleaning. I believe it had MRSA, it has been treated aggre ssively. G-tube is in position. The patient is getting G-tube feeding also. There is no leakage. Abdomen is obese, but there is mild tenderness and the G-tube site cellulitis has decreased. She i s still on the respirator, but alert. Vital signs are otherwise stable. IMPRESSION G-tube cellulitis, improving. Continue G-tube care, wound care and G-tube feeding, and I will follow up on p.r.n. basis. Dictated By: JESSE DAVIS/MARY Conf#: [id number] DID#: [id number] CC: JESSE VERDUGO M.D.; ISABEL BRANDON MD; ALFONSO PERRY MD;*EndCC*
--- NOTE | 2017-04-17 16:37 | CONS ---
Date/Time of Note Date/Time of Note DATE: 04/17/17 TIME: 16:36 Consult Date/Type/Reason Admit Date/Time April 14, 2017 at 00:00 Initial Consult Date Type of Consultation: Pulm Ordering Provider: ALFONSO EPRRY MD Subjective On vent. No events. Objective Vital Signs Date Time Temp Pulse Resp B/P Pulse Ox O2 Delivery O2 Flow Rate FiO2 04/17/17 16:15 77 04/17/17 15:22 22 98 30 04/17/17 15:15 98.9 139/59 Mechanical Ventilator Intake and Output 04/16/17 04/16/17 04/17/17 14:59 22:59 06:59 Intake Total 2247.5 ml 1210 ml Output Total 550 ml 700 ml Balance 1697.5 ml 510 ml Exam CARDIAC: S1, S2, no added sounds or murmurs. CHEST: Diminished air entry bilaterally. ABDOMEN: Soft, nontender. No guarding or rebound. EXTREMITIES: No cyanosis, clubbing, 2+ edema. Results/Medications Result Diagram: 04/17/17 0555 04/17/17 0555 Results 24 hrs Laboratory Tests Test 04/16/17 17:33 04/16/17 21:20 04/17/17 01:04 04/17/17 05:06 Bedside Glucose 187 145 158 163 Test 04/17/17 05:49 04/17/17 05:50 04/17/17 05:55 04/17/17 08:36 Bedside Glucose 169 189 Phosphorus Level 2.4 L Magnesium Level 2.1 White Blood Count 10.8 Red Blood Count 2.36 L Hemoglobin 7.4 L Hematocrit 24.8 L Mean Corpuscular Volume 105.1 H Mean Corpuscular Hemoglobin 31.4 Mean Corpuscular Hemoglobin Concent 29.8 L Red Cell Distribution Width 13.1 Platelet Count 147 Mean Platelet Volume 13.0 H Neutrophils % 76.3 Lymphocytes % 17.2 Monocytes % 4.4 Eosinophils % 1.1 Basophils % 0.1 Nucleated Red Blood Cells % 0.0 Neutrophils # 8.2 H Lymphocytes # 1.9 Monocytes # 0.5 Eosinophils # 0.1 Basophils # 0.0 Nucleated Red Blood Cells # 0.0 Sodium Level 144 Potassium Level 4.6 Chloride Level 106 Carbon Dioxide Level 27 Anion Gap 16 Blood Urea Nitrogen 26 H Creatinine 0.93 Glucose Level 170 Calcium Level 8.3 L Test 04/17/17 12:38 Bedside Glucose 197 Medications Current Medications Lorazepam (Ativan) 0.5 mg Q6H PRN IV ANXIETY; Start 04/14/17 at 11:00 Ondansetron HCl (Zofran Inj) 4 mg Q6H PRN IV NAUSEA AND/OR VOMITING; Start at 11:00 Morphine Sulfate (morphine) 2 mg Q4H PRN IV PAIN LEVEL 7-10; Start 04/14/17 at 11:00 Pantoprazole (Protonix Iv) 40 mg DAILY@06 IV Last administered on 04/17/17 05: 49; Admin Dose 40 MG; Start 04/15/17 at 06:00 Enoxaparin Sodium (Lovenox) 30 mg DAILY SC Last administered on 04/17/17 08:59 ; Admin Dose 30 MG; Start 04/15/17 at 09:00 Miscellaneous Information 1 ea NOTE XX ; Start 04/14/17 at 11:30 Glucose (Glutose) 15 gm Q15M PRN PO DECREASED GLUCOSE; Start 04/14/17 at 11:30 Glucose (Glutose) 22.5 gm Q15M PRN PO DECREASED GLUCOSE; Start 04/14/17 at 11: 30 Dextrose (D50w Syringe) 25 ml Q15M PRN IV DECREASED GLUCOSE; Start 04/14/17 at 11:30 Dextrose (D50w Syringe) 50 ml Q15M PRN IV DECREASED GLUCOSE; Start 04/14/17 at 11:30 Glucagon (Glucagen) 1 mg Q15M PRN IM DECREASED GLUCOSE; Start 04/14/17 at 11:30 Glucose 15 gm 15 gm Q15M PRN BUCCAL DECREASED GLUCOSE; Start 04/14/17 at 11:30 Potassium Chloride/Dextrose 1,000 ml @ 75 mls/hr [id number] IV Last administered on 04/17/17 15:17; Admin Dose 75 MLS/HR; Start 04/15/17 at 09:00 Meropenem (Merrem 1 Gm/100 ml (Pmx)) 100 ml @ 200 mls/hr Q8 IVPB Last administered on 04/17/17 14:17; Admin Dose 200 MLS/HR; Start 04/15/17 at 14:00 Metronidazole (Flagyl) 500 mg Q8 GTB Last administered on 04/17/17 14:17; Admin Dose 500 MG; Start 04/16/17 at 13:00 Fluconazole (Diflucan) 100 mg DAILY PO Last administered on 04/17/17 08:38; Admin Dose 100 MG; Start 04/17/17 at 09:00 Nystatin (Nystatin Oint) 1 applic TID TOP Last administered on 04/17/17 14:16 ; Admin Dose 1 APPLIC; Start 04/16/17 at 21:00 Insulin Aspart (Novolog Insulin Pen) NOVOLOG *MILD* ALGORI... Q6 SC ; Start at 18:00 Assessment/Plan Additional Assessment/Plan IMPRESSION: 1. Urinary tract infection with leukocytosis. G-tube site cellulitis 2. Ventilatory-dependent respiratory failure. 3. Encephalopathy. 4. Dysphagia with G-tube. 5. 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 Hypernatremia PLAN: 1. Continue broad-spectrum antibiotics. 2. Continue mechanical ventilation. 3. Pulmonary toilet/CPT/BDs 4. Tube feeding/Free h20 5. DVT and GI prophylaxis. LALO NEWMAN MD April 17, 2017 16:37
--- NOTE | 2017-04-17 20:25 | CONS ---
Date/Time of Note Date/Time of Note DATE: 04/17/17 TIME: 20:23 Assessment/Plan Assessment/Plan Additional Assessment/Plan 1. Acute kidney injury with high BUN 89, likely secondary to septic shock from sepsis secondary to urinary tract infections. 2. Septic shock secondary to urinary tract infection. 3. Hypernatremia. Sodium 150 secondary to large free water deficit. 4. G-tube site cellulitis. 5. Ventilator-dependent respiratory failure, status post tracheostomy. 6. Dysphagia, status post gastrostomy tube placement. 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 9. Hypertension. 10. Hyperlipidemia. PLAN: good urine output 1.5 liter, BUN/Cr improvig, Na improving with IVF D5W continue D5W [id number] KCL- decrease rate to 60 cc/hr Vent Management per pulmonary Will continue to follow up Consultation Date/Type/Reason Admit Date/Time April 14, 2017 at 00:00 Initial Consult Date March Type of Consultation: NEPHROLOGY Referring Provider: ALFONSO PERRY MD 24 HR Interval Summary Free Text/Dictation BUN/Cr improving, Na better today Exam/Review of Systems Vital Signs Vitals Vital Signs Date Time Temp Pulse Resp B/P Pulse Ox O2 Delivery O2 Flow Rate FiO2 04/17/17 17:41 72 23 98 30 04/17/17 15:15 98.9 139/59 Mechanical Ventilator Intake and Output 04/16/17 04/16/17 04/17/17 15:00 23:00 07:00 Intake Total 2347.5 ml 1110 ml Output Total 550 ml 700 ml Balance 1797.5 ml 410 ml Exam GENERAL: on ventilator NECK: Supple, no JVD. The patient has a tracheostomy site. LUNGS: Decreased breath sounds at both lung bases, minimal expiratory wheezing present. HEART: S1, S2, with regular rhythm without murmur or gallop. ABDOMEN: Soft, nontender, G-tube site has some excoriation and redness around the stoma. There is no guarding or rebound tenderness. EXTREMITIES: Bilateral contractures. Results Result Diagram: 04/17/17 0555 04/17/17 0555 Results 24 hrs Laboratory Tests Test 04/16/17 21:20 04/17/17 01:04 04/17/17 05:06 04/17/17 05:49 Bedside Glucose 145 158 163 169 Test 04/17/17 05:50 04/17/17 05:55 04/17/17 08:36 04/17/17 12:38 Phosphorus Level 2.4 L Magnesium Level 2.1 White Blood Count 10.8 Red Blood Count 2.36 L Hemoglobin 7.4 L Hematocrit 24.8 L Mean Corpuscular Volume 105.1 H Mean Corpuscular Hemoglobin 31.4 Mean Corpuscular Hemoglobin Concent 29.8 L Red Cell Distribution Width 13.1 Platelet Count 147 Mean Platelet Volume 13.0 H Neutrophils % 76.3 Lymphocytes % 17.2 Monocytes % 4.4 Eosinophils % 1.1 Basophils % 0.1 Nucleated Red Blood Cells % 0.0 Neutrophils # 8.2 H Lymphocytes # 1.9 Monocytes # 0.5 Eosinophils # 0.1 Basophils # 0.0 Nucleated Red Blood Cells # 0.0 Sodium Level 144 Potassium Level 4.6 Chloride Level 106 Carbon Dioxide Level 27 Anion Gap 16 Blood Urea Nitrogen 26 H Creatinine 0.93 Glucose Level 170 Calcium Level 8.3 L Bedside Glucose 189 197 Test 04/17/17 18:17 Bedside Glucose 106 Medications Medications Current Medications Lorazepam (Ativan) 0.5 mg Q6H PRN IV ANXIETY; Start 04/14/17 at 11:00 Ondansetron HCl (Zofran Inj) 4 mg Q6H PRN IV NAUSEA AND/OR VOMITING; Start at 11:00 Morphine Sulfate (morphine) 2 mg Q4H PRN IV PAIN LEVEL 7-10; Start 04/14/17 at 11:00 Pantoprazole (Protonix Iv) 40 mg DAILY@06 IV Last administered on 04/17/17 05: 49; Admin Dose 40 MG; Start 04/15/17 at 06:00 Enoxaparin Sodium (Lovenox) 30 mg DAILY SC Last administered on 04/17/17 08:59 ; Admin Dose 30 MG; Start 04/15/17 at 09:00 Miscellaneous Information 1 ea NOTE XX ; Start 04/14/17 at 11:30 Glucose (Glutose) 15 gm Q15M PRN PO DECREASED GLUCOSE; Start 04/14/17 at 11:30 Glucose (Glutose) 22.5 gm Q15M PRN PO DECREASED GLUCOSE; Start 04/14/17 at 11: 30 Dextrose (D50w Syringe) 25 ml Q15M PRN IV DECREASED GLUCOSE; Start 04/14/17 at 11:30 Dextrose (D50w Syringe) 50 ml Q15M PRN IV DECREASED GLUCOSE; Start 04/14/17 at 11:30 Glucagon (Glucagen) 1 mg Q15M PRN IM DECREASED GLUCOSE; Start 04/14/17 at 11:30 Glucose 15 gm 15 gm Q15M PRN BUCCAL DECREASED GLUCOSE; Start 04/14/17 at 11:30 Potassium Chloride/Dextrose 1,000 ml @ 75 mls/hr [id number] IV Last administered on 04/17/17 15:17; Admin Dose 75 MLS/HR; Start 04/15/17 at 09:00 Meropenem (Merrem 1 Gm/100 ml (Pmx)) 100 ml @ 200 mls/hr Q8 IVPB Last administered on 04/17/17 14:17; Admin Dose 200 MLS/HR; Start 04/15/17 at 14:00 Metronidazole (Flagyl) 500 mg Q8 GTB Last administered on 04/17/17 14:17; Admin Dose 500 MG; Start 04/16/17 at 13:00 Fluconazole (Diflucan) 100 mg DAILY PO Last administered on 04/17/17 08:38; Admin Dose 100 MG; Start 04/17/17 at 09:00 Nystatin (Nystatin Oint) 1 applic TID TOP Last administered on 04/17/17 14:16 ; Admin Dose 1 APPLIC; Start 04/16/17 at 21:00 Insulin Aspart (Novolog Insulin Pen) NOVOLOG *MILD* ALGORI... Q6 SC ; Start at 18:00 FERNANDO CLARK MD April 17, 2017 20:25
[2017-04-17] MEDS ORDERED: ACETAMINOPHEN 325 MG TAB GTB PRN (21:30)
[2017-04-17] MEDS: ACETAMINOPHEN 650MG/20.3ML CUP GTB PRN (21:55)
[2017-04-18] VITALS (25 sets, daily range): BP systolic 100–155; BP diastolic 50–75; PULSE 64–88; RESP 12–27
[2017-04-18] MEDS: LORAZEPAM 2 MG INJ IV PRN (02:25)
[2017-04-18] MEDS: metroNIDAZOLE 500 MG TAB GTB SCH ×3 (05:28→21:43)
[2017-04-18] MEDS: PANTOPRAZOLE 40 MG INJ IV SCH (05:28)
[2017-04-18] MEDS: MEROPENEM 1 GM/100 ML (PMX) 100 ML IVPB SCH ×3 (05:29→21:42)
[2017-04-18] MEDS: INSULIN ASPART [NOVOLOG] 3 ML PEN SC SCH ×4 (05:29→17:47)
[2017-04-18 06:06] LABS: ADD SCAN DIFF NO
[2017-04-18 06:42] LABS: POTASSIUM 4.5 mmol/L (3.5-5.1)
[2017-04-18 06:43] LABS: MAGNESIUM 2.1 mg/dl (1.7-2.5)
[2017-04-18 06:45] LABS: CREATININE 0.98 mg/dl (0.44-1.00)
[2017-04-18 06:46] LABS: CALCIUM 8.5 mg/dl (8.4-10.2)
[2017-04-18 06:49] LABS: BASOPHILS % 0.2 % (0.0-2.0); EOSINOPHILS # 0.1 10^3/ul (0.0-0.5); EOSINOPHILS % 0.6 % (0.0-7.0); HEMATOCRIT 29.9 % (37.0-47.0); HEMOGLOBIN 9.3 g/dl (12.0-16.0); LYMPHOCYTES # 2.1 10^3/ul (0.8-2.9); LYMPHOCYTES % 16.1 % (15.0-51.0); MEAN CORPUSCULAR HEMOGLOBIN 31.2 pg (29.0-33.0); MEAN CORPUSCULAR HGB CONC 31.1 g/dl (32.0-37.0); MEAN CORPUSCULAR VOLUME 100.3 fl (82.0-101.0); MEAN PLATELET VOLUME 12.8 fl (7.4-10.4); MONOCYTE # 0.5 10^3/ul (0.3-0.9); MONOCYTES % 4.2 % (0.0-11.0); NEUTROPHILS % 78.4 % (39.0-77.0); PLATELET COUNT 145 10^3/UL (140-415); RED BLOOD COUNT 2.98 10^6/ul (4.20-5.40); WHITE BLOOD COUNT 12.8 10^3/ul (4.8-10.8)
[2017-04-18] MEDS: D5W + KCL 20 MEQ 1,000 ML IV SCH ×2 (07:47→20:23)
[2017-04-18] MEDS: ACETAMINOPHEN 650MG/20.3ML CUP GTB PRN ×2 (07:47→15:42)
[2017-04-18] MEDS: NYSTATIN 15 GM OINT TOP SCH ×2 (08:43→12:21)
[2017-04-18] MEDS: FLUCONAZOLE 100 MG TAB PO SCH (08:43)
[2017-04-18] MEDS: ENOXAPARIN 30 MG/0.3 ML SYG SC SCH (08:52)
--- NOTE | 2017-04-18 10:45 | PN ---
Date/Time of Note Date/Time of Note DATE: 04/18/17 TIME: 10:26 Assessment/Plan VTE Prophylaxis VTE Prophylaxis Intervention: LMWH Lines/Catheters IV Catheter Type (from Nrsg): Peripheral IV Urinary Cath still in place: Yes Reason Cath still needed: other (indicate) (chronic celis dependent ) Assessment/Plan Assessment/Plan 86 yo female with 1. Septic shock secondary to urinary tract infection and also with noted G- tube site cellulitis with hx of MRSA infection. Urine cx with ESBL sensitive to Carbapenem and also C diff positive. Continue IVF. Meropenem, Flagyl and Diflucan. May need to change to Vfend as growing Milena Glabrata Blood culture NGTD Leukocytosis resolved 2. Acute kidney injury likely ATN and pre renal secondary to septic shock. Appreciate recs from Dr Mcdaniel. Resolved. Continue IVF at lower rate and avoiding Nephrotoxic meds. Further recs per Nephro. 3. Hypernatremia: Resolved. IVF adjusted per Nephro 4. G-tube site cellulitis. On Meropenem and antifungal. Tolerating tube feeding , ? leaking G tube, Dr Thompson following 5. Ventilator-dependent respiratory failure, status post tracheostomy. Stable on current vent setting and Pulmonary following 6. Dysphagia, status post gastrostomy tube placement. Appreciate assistance from Dr Thompson, TF resumed with free H2O, well tolerated CT abdo/pelvis shows no abscess. 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 Good UOP 9. Chronic anemia: Hb < 7.5 x 2 days now,s/p 1 units Transfuse 1 unit pRBC yesterday, Hb up to 9.3 today 10. Hypertension: off meds and BP stable 11. Hyperlipidemia: resume statins later. Prophylaxis: Lovenox for DVT ppx and Protonix for GI ppx Disposition: Telemetry level of care. Follow up GI, Nephro, and ID recs today. D/c plan back to SNF in the next 24 hrs Subjective 24 Hr Interval Summary Free Text/Dictation Patient remains stable S/p 1 unit pRBC yesterday Afebrile and stable on the Vent D/c plan to SNF tomorrow on adequate abx regimen. Exam/Review of Systems Vital Signs Vitals Vital Signs Date Time Temp Pulse Resp B/P Pulse Ox O2 Delivery O2 Flow Rate FiO2 5/28/17 09:10 87 25 98 30 04/18/17 08:40 98.9 04/18/17 08:05 133/63 04/17/17 15:15 Mechanical Ventilator Intake and Output 04/17/17 04/17/17 04/18/17 15:00 23:00 07:00 Intake Total 1590 ml 1860 ml Output Total 800 ml 950 ml Balance 790 ml 910 ml Exam Constitutional: frail, non-verbal, other (trached and PEG'd) Respiratory: clear to auscultation, other (on vent ) Cardiovascular: nl pulses, regular rate and rhythm Gastrointestinal: non-tender, other (tolerating G tube feedings, G tube site improving ), soft Musculoskeletal: other (poor muscle tone, no edema, clubbing or cyanosis ) Extremities: normal pulses Neurological: [employer] II-XII intact, lethargic, other (generalised weakness ) Results Result Diagram: 04/18/17 0550 04/18/17 0550 Results 24 hrs Laboratory Tests Test 04/17/17 12:38 04/17/17 18:17 04/18/17 00:53 04/18/17 05:26 Bedside Glucose 197 106 138 133 Test 04/18/17 05:35 04/18/17 05:50 Phosphorus Level 3.0 Magnesium Level 2.1 White Blood Count 12.8 H Red Blood Count 2.98 #L Hemoglobin 9.3 #L Hematocrit 29.9 #L Mean Corpuscular Volume 100.3 Mean Corpuscular Hemoglobin 31.2 Mean Corpuscular Hemoglobin Concent 31.1 L Red Cell Distribution Width 14.0 Platelet Count 145 Mean Platelet Volume 12.8 H Neutrophils % 78.4 H Lymphocytes % 16.1 Monocytes % 4.2 Eosinophils % 0.6 Basophils % 0.2 Nucleated Red Blood Cells % 0.0 Neutrophils # 10.0 H Lymphocytes # 2.1 Monocytes # 0.5 Eosinophils # 0.1 Basophils # 0.0 Nucleated Red Blood Cells # 0.0 Sodium Level 142 Potassium Level 4.5 Chloride Level 110 Carbon Dioxide Level 27 Anion Gap 10 # Blood Urea Nitrogen 26 H Creatinine 0.98 Glucose Level 166 Calcium Level 8.5 Medications Medications Current Medications Lorazepam (Ativan) 0.5 mg Q6H PRN IV ANXIETY Last administered on 04/18/17t 02: 25; Admin Dose 0.5 MG; Start 04/14/17 at 11:00 Ondansetron HCl (Zofran Inj) 4 mg Q6H PRN IV NAUSEA AND/OR VOMITING; Start at 11:00 Morphine Sulfate (morphine) 2 mg Q4H PRN IV PAIN LEVEL 7-10; Start 04/14/17 at 11:00 Pantoprazole (Protonix Iv) 40 mg DAILY@06 IV Last administered on 04/18/17 05: 28; Admin Dose 40 MG; Start 04/15/17 at 06:00 Enoxaparin Sodium (Lovenox) 30 mg DAILY SC Last administered on 04/18/17 08:52 ; Admin Dose 30 MG; Start 04/15/17 at 09:00 Miscellaneous Information 1 ea NOTE XX ; Start 04/14/17 at 11:30 Glucose (Glutose) 15 gm Q15M PRN PO DECREASED GLUCOSE; Start 04/14/17 at 11:30 Glucose (Glutose) 22.5 gm Q15M PRN PO DECREASED GLUCOSE; Start 04/14/17 at 11: 30 Dextrose (D50w Syringe) 25 ml Q15M PRN IV DECREASED GLUCOSE; Start 04/14/17 at 11:30 Dextrose (D50w Syringe) 50 ml Q15M PRN IV DECREASED GLUCOSE; Start 04/14/17 at 11:30 Glucagon (Glucagen) 1 mg Q15M PRN IM DECREASED GLUCOSE; Start 04/14/17 at 11:30 Glucose 15 gm 15 gm Q15M PRN BUCCAL DECREASED GLUCOSE; Start 04/14/17 at 11:30 Potassium Chloride/Dextrose 1,000 ml @ 50 mls/hr Q20H IV Last administered on 04/18/17 07:47; Admin Dose 50 MLS/HR; Start 04/15/17 at 09:00 Meropenem (Merrem 1 Gm/100 ml (Pmx)) 100 ml @ 200 mls/hr Q8 IVPB Last administered on 04/18/17 05:29; Admin Dose 200 MLS/HR; Start 04/15/17 at 14:00 Metronidazole (Flagyl) 500 mg Q8 GTB Last administered on 04/18/17 05:28; Admin Dose 500 MG; Start 04/16/17 at 13:00 Fluconazole (Diflucan) 100 mg DAILY PO Last administered on 04/18/17 08:43; Admin Dose 100 MG; Start 04/17/17 at 09:00 Nystatin (Nystatin Oint) 1 applic TID TOP Last administered on 04/18/17 08:43 ; Admin Dose 1 APPLIC; Start 04/16/17 at 21:00 Insulin Aspart (Novolog Insulin Pen) NOVOLOG *MILD* ALGORI... Q6 SC ; Start at 18:00 Acetaminophen (Tylenol Liquid) 650 mg Q6H PRN GTB PAIN AND OR ELEVATED TEMP Last administered on 04/18/17 07:47; Admin Dose 650 MG; Start 04/17/17 at 21:30 CINTIA GUSTAFSON April 18, 2017 10:36
--- NOTE | 2017-04-18 11:01 | PN ---
Date/Time of Note Date/Time of Note DATE: 04/18/17 TIME: 10:56 Assessment/Plan VTE Prophylaxis VTE Prophylaxis Intervention: SCD's Lines/Catheters IV Catheter Type (from Nrsg): Peripheral IV Urinary Cath still in place: Yes Reason Cath still needed: urinary retention ( G.Tube site leaking with inflamation) Assessment/Plan Assessment/Plan remove G.Tube and place N.G tube for feeding ,wait untill g.tube site heals before replacing PEG. Subjective 24 Hr Interval Summary Gastrointestinal: other ( G.Tube site leaking,infected cellulitis improved) Exam/Review of Systems Vital Signs Vitals Vital Signs Date Time Temp Pulse Resp B/P Pulse Ox O2 Delivery O2 Flow Rate FiO2 04/18/17 09:10 87 25 98 30 04/18/17 08:40 98.9 04/18/17 08:05 133/63 04/17/17 15:15 Mechanical Ventilator Intake and Output 04/17/17 04/17/17 04/18/17 15:00 23:00 07:00 Intake Total 1590 ml 1860 ml Output Total 800 ml 950 ml Balance 790 ml 910 ml Results Result Diagram: 04/18/17 0550 04/18/17 0550 Results 24 hrs Laboratory Tests Test 04/17/17 12:38 04/17/17 18:17 04/18/17 00:53 04/18/17 05:26 Bedside Glucose 197 106 138 133 Test 04/18/17 05:35 04/18/17 05:50 04/18/17 10:41 Phosphorus Level 3.0 Magnesium Level 2.1 White Blood Count 12.8 H Red Blood Count 2.98 #L Hemoglobin 9.3 #L Hematocrit 29.9 #L Mean Corpuscular Volume 100.3 Mean Corpuscular Hemoglobin 31.2 Mean Corpuscular Hemoglobin Concent 31.1 L Red Cell Distribution Width 14.0 Platelet Count 145 Mean Platelet Volume 12.8 H Neutrophils % 78.4 H Lymphocytes % 16.1 Monocytes % 4.2 Eosinophils % 0.6 Basophils % 0.2 Nucleated Red Blood Cells % 0.0 Neutrophils # 10.0 H Lymphocytes # 2.1 Monocytes # 0.5 Eosinophils # 0.1 Basophils # 0.0 Nucleated Red Blood Cells # 0.0 Sodium Level 142 Potassium Level 4.5 Chloride Level 110 Carbon Dioxide Level 27 Anion Gap 10 # Blood Urea Nitrogen 26 H Creatinine 0.98 Glucose Level 166 Calcium Level 8.5 Bedside Glucose 197 Medications Medications Current Medications Lorazepam (Ativan) 0.5 mg Q6H PRN IV ANXIETY Last administered on 04/18/17 02: 25; Admin Dose 0.5 MG; Start 04/14/17 at 11:00 Ondansetron HCl (Zofran Inj) 4 mg Q6H PRN IV NAUSEA AND/OR VOMITING; Start at 11:00 Morphine Sulfate (morphine) 2 mg Q4H PRN IV PAIN LEVEL 7-10; Start 04/14/17 at 11:00 Pantoprazole (Protonix Iv) 40 mg DAILY@06 IV Last administered on 04/18/17 05: 28; Admin Dose 40 MG; Start 04/15/17 at 06:00 Enoxaparin Sodium (Lovenox) 30 mg DAILY SC Last administered on 04/18/17 08:52 ; Admin Dose 30 MG; Start 04/15/17 at 09:00 Miscellaneous Information 1 ea NOTE XX ; Start 04/14/17 at 11:30 Glucose (Glutose) 15 gm Q15M PRN PO DECREASED GLUCOSE; Start 04/14/17 at 11:30 Glucose (Glutose) 22.5 gm Q15M PRN PO DECREASED GLUCOSE; Start 04/14/17 at 11: 30 Dextrose (D50w Syringe) 25 ml Q15M PRN IV DECREASED GLUCOSE; Start 04/14/17 at 11:30 Dextrose (D50w Syringe) 50 ml Q15M PRN IV DECREASED GLUCOSE; Start 04/14/17 at 11:30 Glucagon (Glucagen) 1 mg Q15M PRN IM DECREASED GLUCOSE; Start 04/14/17 at 11:30 Glucose 15 gm 15 gm Q15M PRN BUCCAL DECREASED GLUCOSE; Start 04/14/17 at 11:30 Potassium Chloride/Dextrose 1,000 ml @ 50 mls/hr Q20H IV Last administered on 04/18/17 07:47; Admin Dose 50 MLS/HR; Start 04/15/17 at 09:00 Meropenem (Merrem 1 Gm/100 ml (Pmx)) 100 ml @ 200 mls/hr Q8 IVPB Last administered on 04/18/17 05:29; Admin Dose 200 MLS/HR; Start 04/15/17 at 14:00 Metronidazole (Flagyl) 500 mg Q8 GTB Last administered on 04/18/17 05:28; Admin Dose 500 MG; Start 04/16/17 at 13:00 Fluconazole (Diflucan) 100 mg DAILY PO Last administered on 04/18/17 08:43; Admin Dose 100 MG; Start 04/17/17 at 09:00 Nystatin (Nystatin Oint) 1 applic TID TOP Last administered on 04/18/17 08:43 ; Admin Dose 1 APPLIC; Start 04/16/17 at 21:00 Insulin Aspart (Novolog Insulin Pen) NOVOLOG *MILD* ALGORI... Q6 SC ; Start at 18:00 Acetaminophen (Tylenol Liquid) 650 mg Q6H PRN GTB PAIN AND OR ELEVATED TEMP Last administered on 04/18/17 07:47; Admin Dose 650 MG; Start 04/17/17 at 21:30 JESSE VERDUGO MD April 18, 2017 11:01
--- NOTE | 2017-04-18 12:24 | CONS ---
Date/Time of Note Date/Time of Note DATE: 04/18/17 TIME: 12:19 Consult Date/Type/Reason Admit Date/Time April 14, 2017 at 00:00 Initial Consult Date Type of Consultation: NEPHROLOGY Ordering Provider: ALFONSO PERRY MD Subjective resting , nad, remains on vent, Trach intact, afebrile, dw staff Objective Vital Signs Date Time Temp Pulse Resp B/P Pulse Ox O2 Delivery O2 Flow Rate FiO2 04/18/17 12:06 65 04/18/17 11:34 98.6 16 133/54 100 04/18/17 11:16 30 04/17/17 15:15 Mechanical Ventilator Intake and Output 04/17/17 04/17/17 04/18/17 15:00 23:00 07:00 Intake Total 1590 ml 1860 ml Output Total 800 ml 950 ml Balance 790 ml 910 ml Exam GENERAL: NAD, on ventilator, UNRESPONSIVE. NECK: Supple, no JVD. The patient has a tracheostomy site. LUNGS: Decreased breath sounds at both lung bases bilaterally HEART: S1, S2, with regular rhythm without murmur or gallop. ABDOMEN: Soft, nontender, G-tube site has some excoriation and redness around the stoma. There is no guarding or rebound tenderness. EXTREMITIES: Bilateral contractures/ Muscle weakness Results/Medications Result Diagram: 04/18/17 0550 04/18/17 0550 Results 24 hrs Laboratory Tests Test 04/17/17 12:38 04/17/17 18:17 04/18/17 00:53 04/18/17 05:26 Bedside Glucose 197 106 138 133 Test 04/18/17 05:35 04/18/17 05:50 04/18/17 10:41 Phosphorus Level 3.0 Magnesium Level 2.1 White Blood Count 12.8 H Red Blood Count 2.98 #L Hemoglobin 9.3 #L Hematocrit 29.9 #L Mean Corpuscular Volume 100.3 Mean Corpuscular Hemoglobin 31.2 Mean Corpuscular Hemoglobin Concent 31.1 L Red Cell Distribution Width 14.0 Platelet Count 145 Mean Platelet Volume 12.8 H Neutrophils % 78.4 H Lymphocytes % 16.1 Monocytes % 4.2 Eosinophils % 0.6 Basophils % 0.2 Nucleated Red Blood Cells % 0.0 Neutrophils # 10.0 H Lymphocytes # 2.1 Monocytes # 0.5 Eosinophils # 0.1 Basophils # 0.0 Nucleated Red Blood Cells # 0.0 Sodium Level 142 Potassium Level 4.5 Chloride Level 110 Carbon Dioxide Level 27 Anion Gap 10 # Blood Urea Nitrogen 26 H Creatinine 0.98 Glucose Level 166 Calcium Level 8.5 Bedside Glucose 197 Medications Current Medications Lorazepam (Ativan) 0.5 mg Q6H PRN IV ANXIETY Last administered on 04/18/17 02: 25; Admin Dose 0.5 MG; Start 04/14/17 at 11:00 Ondansetron HCl (Zofran Inj) 4 mg Q6H PRN IV NAUSEA AND/OR VOMITING; Start at 11:00 Morphine Sulfate (morphine) 2 mg Q4H PRN IV PAIN LEVEL 7-10; Start 04/14/17 at 11:00 Pantoprazole (Protonix Iv) 40 mg DAILY@06 IV Last administered on 04/18/17 05: 28; Admin Dose 40 MG; Start 04/15/17 at 06:00 Enoxaparin Sodium (Lovenox) 30 mg DAILY SC Last administered on 04/18/17 08:52 ; Admin Dose 30 MG; Start 04/15/17 at 09:00 Miscellaneous Information 1 ea NOTE XX ; Start 04/14/17 at 11:30 Glucose (Glutose) 15 gm Q15M PRN PO DECREASED GLUCOSE; Start 04/14/17 at 11:30 Glucose (Glutose) 22.5 gm Q15M PRN PO DECREASED GLUCOSE; Start 04/14/17 at 11: 30 Dextrose (D50w Syringe) 25 ml Q15M PRN IV DECREASED GLUCOSE; Start 04/14/17 at 11:30 Dextrose (D50w Syringe) 50 ml Q15M PRN IV DECREASED GLUCOSE; Start 04/14/17 at 11:30 Glucagon (Glucagen) 1 mg Q15M PRN IM DECREASED GLUCOSE; Start 04/14/17 at 11:30 Glucose 15 gm 15 gm Q15M PRN BUCCAL DECREASED GLUCOSE; Start 04/14/17 at 11:30 Potassium Chloride/Dextrose 1,000 ml @ 50 mls/hr Q20H IV Last administered on 04/18/17 07:47; Admin Dose 50 MLS/HR; Start 04/15/17 at 09:00 Meropenem (Merrem 1 Gm/100 ml (Pmx)) 100 ml @ 200 mls/hr Q8 IVPB Last administered on 04/18/17 05:29; Admin Dose 200 MLS/HR; Start 04/15/17 at 14:00 Metronidazole (Flagyl) 500 mg Q8 GTB Last administered on 04/18/17 05:28; Admin Dose 500 MG; Start 04/16/17 at 13:00 Fluconazole (Diflucan) 100 mg DAILY PO Last administered on 04/18/17 08:43; Admin Dose 100 MG; Start 04/17/17 at 09:00 Nystatin (Nystatin Oint) 1 applic TID TOP Last administered on 04/18/17 08:43 ; Admin Dose 1 APPLIC; Start 04/16/17 at 21:00 Insulin Aspart (Novolog Insulin Pen) NOVOLOG *MILD* ALGORI... Q6 SC ; Start at 18:00 Acetaminophen (Tylenol Liquid) 650 mg Q6H PRN GTB PAIN AND OR ELEVATED TEMP Last administered on 04/18/17 07:47; Admin Dose 650 MG; Start 04/17/17 at 21:30 Assessment/Plan Additional Assessment/Plan 1. Acute kidney injury with high BUN 89, likely secondary to septic shock from sepsis secondary to urinary tract infections. 2. Septic shock secondary to urinary tract infection. 3. Hypernatremia. Sodium 142- resolved- secondary to large free water deficit. 4. G-tube site cellulitis. 5. Ventilator-dependent respiratory failure, status post tracheostomy. - aspiration precautions 6. Dysphagia, status post gastrostomy tube placement. 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 9. Hypertension. 10. Hyperlipidemia. 11. Anemia- monitor H/H, am CBC PLAN: -good urine output 1.7 liter, BUN/Cr improved- 0.98, Na improved 142- with IVF D5W continue D5W [id number] KCL at 60 cc/hr Vent Management per pulmonary Will continue to follow up Further recommendations depend upon patient's clinical course. Plan of care discussed with Dr Rush Mcdaniel/staff EDUARDO PATTEN April 18, 2017 12:24
--- NOTE | 2017-04-18 13:36 | CONS ---
Date/Time of Note Date/Time of Note DATE: 04/18/17 TIME: 13:35 Consult Date/Type/Reason Admit Date/Time April 14, 2017 at 00:00 Type of Consultation: Pulm Ordering Provider: ALFONSO PERRY MD Subjective no events on MV Objective Vital Signs Date Time Temp Pulse Resp B/P Pulse Ox O2 Delivery O2 Flow Rate FiO2 04/18/17 12:06 65 04/18/17 11:34 98.6 16 133/54 100 04/18/17 11:16 30 04/17/17 15:15 Mechanical Ventilator Intake and Output 04/17/17 04/17/17 04/18/17 15:00 23:00 07:00 Intake Total 1590 ml 1860 ml Output Total 800 ml 950 ml Balance 790 ml 910 ml Exam CARDIAC: S1, S2, no added sounds or murmurs. CHEST: Diminished air entry bilaterally. ABDOMEN: Soft, nontender. No guarding or rebound. EXTREMITIES: No cyanosis, clubbing, 2+ edema. Results/Medications Result Diagram: 04/18/17 0550 04/18/17 0550 Results 24 hrs Laboratory Tests Test 04/17/17 18:17 04/18/17 00:53 04/18/17 05:26 04/18/17 05:35 Bedside Glucose 106 138 133 Phosphorus Level 3.0 Magnesium Level 2.1 Test 04/18/17 05:50 04/18/17 10:41 04/18/17 12:19 White Blood Count 12.8 H Red Blood Count 2.98 #L Hemoglobin 9.3 #L Hematocrit 29.9 #L Mean Corpuscular Volume 100.3 Mean Corpuscular Hemoglobin 31.2 Mean Corpuscular Hemoglobin Concent 31.1 L Red Cell Distribution Width 14.0 Platelet Count 145 Mean Platelet Volume 12.8 H Neutrophils % 78.4 H Lymphocytes % 16.1 Monocytes % 4.2 Eosinophils % 0.6 Basophils % 0.2 Nucleated Red Blood Cells % 0.0 Neutrophils # 10.0 H Lymphocytes # 2.1 Monocytes # 0.5 Eosinophils # 0.1 Basophils # 0.0 Nucleated Red Blood Cells # 0.0 Sodium Level 142 Potassium Level 4.5 Chloride Level 110 Carbon Dioxide Level 27 Anion Gap 10 # Blood Urea Nitrogen 26 H Creatinine 0.98 Glucose Level 166 Calcium Level 8.5 Bedside Glucose 197 151 Medications Current Medications Lorazepam (Ativan) 0.5 mg Q6H PRN IV ANXIETY Last administered on 04/18/17 02: 25; Admin Dose 0.5 MG; Start 04/14/17 at 11:00 Ondansetron HCl (Zofran Inj) 4 mg Q6H PRN IV NAUSEA AND/OR VOMITING; Start at 11:00 Morphine Sulfate (morphine) 2 mg Q4H PRN IV PAIN LEVEL 7-10; Start 04/14/17 at 11:00 Pantoprazole (Protonix Iv) 40 mg DAILY@06 IV Last administered on 04/18/17 05: 28; Admin Dose 40 MG; Start 04/15/17 at 06:00 Enoxaparin Sodium (Lovenox) 30 mg DAILY SC Last administered on 04/18/17 08:52 ; Admin Dose 30 MG; Start 04/15/17 at 09:00 Miscellaneous Information 1 ea NOTE XX ; Start 04/14/17 at 11:30 Glucose (Glutose) 15 gm Q15M PRN PO DECREASED GLUCOSE; Start 04/14/17 at 11:30 Glucose (Glutose) 22.5 gm Q15M PRN PO DECREASED GLUCOSE; Start 04/14/17 at 11: 30 Dextrose (D50w Syringe) 25 ml Q15M PRN IV DECREASED GLUCOSE; Start 04/14/17 at 11:30 Dextrose (D50w Syringe) 50 ml Q15M PRN IV DECREASED GLUCOSE; Start 04/14/17 at 11:30 Glucagon (Glucagen) 1 mg Q15M PRN IM DECREASED GLUCOSE; Start 04/14/17 at 11:30 Glucose 15 gm 15 gm Q15M PRN BUCCAL DECREASED GLUCOSE; Start 04/14/17 at 11:30 Potassium Chloride/Dextrose 1,000 ml @ 50 mls/hr Q20H IV Last administered on 04/18/17 07:47; Admin Dose 50 MLS/HR; Start 04/15/17 at 09:00 Meropenem (Merrem 1 Gm/100 ml (Pmx)) 100 ml @ 200 mls/hr Q8 IVPB Last administered on 04/18/17 13:30; Admin Dose 200 MLS/HR; Start 04/15/17 at 14:00 Metronidazole (Flagyl) 500 mg Q8 GTB Last administered on 04/18/17 13:30; Admin Dose 500 MG; Start 04/16/17 at 13:00 Fluconazole (Diflucan) 100 mg DAILY PO Last administered on 04/18/17 08:43; Admin Dose 100 MG; Start 04/17/17 at 09:00 Nystatin (Nystatin Oint) 1 applic TID TOP Last administered on 04/18/17 12:21 ; Admin Dose 1 APPLIC; Start 04/16/17 at 21:00 Insulin Aspart (Novolog Insulin Pen) NOVOLOG *MILD* ALGORI... Q6 SC Last administered on 04/18/17 13:19; Admin Dose 1 UNIT; Start 04/17/17 at 18:00 Acetaminophen (Tylenol Liquid) 650 mg Q6H PRN GTB PAIN AND OR ELEVATED TEMP Last administered on 04/18/17 07:47; Admin Dose 650 MG; Start 04/17/17 at 21:30 Assessment/Plan Additional Assessment/Plan IMPRESSION: 1. G-tube site cellulitis 2. Ventilatory-dependent respiratory failure. 3. Encephalopathy. 4. Dysphagia with G-tube. 5. 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 Hypernatremia PLAN: 1. Vent support; BD's/CPT 2. Abx per ID 3. Wound care 4. Tube feeding/Free h20 5. DVT and GI prophylaxis. LALO NEWMAN MD April 18, 2017 13:36
--- NOTE | 2017-04-18 16:22 | CONS ---
Date/Time of Note Date/Time of Note DATE: 04/18/17 TIME: 16:19 Assessment/Plan Assessment/Plan Chief Complaint/Hosp Course ID PROGRESS NOTE CURRENT ABX: ABD DAY # 5 =>Merrem, Diflucan, Flagyl GT Zyvox-> DC'd 04/17 24H INTERVAL SUMMARY * Tmax 101.1 today ?PRBCs vs C.Diff -- WBC up today - Non-communicative on the Vent * 04/14/17 CXR IMPRESSION:1. Chronic interstitial age-related changes of the lungs are noted with improved aeration compared to the prior study and no evidence of acute intrathoracic pathology. 2. Nonspecific elevation of the right hemidiaphragm but 3. Tracheostomy in good position. * MICRO: (+)C.Diff Colitis, GT-> Glabrata; UTI = E.coli/ESBL low colony counts, Trach (+)PSAR * RESPIRATORY CULTURE Preliminary Organism 1 PSEUDOMONAS AERUGINOSA QUANTITY 2+ P.AERUG M.I.C. RX --------- --- AMIKACIN 8 S CEFEPIME <=1 S CEFTAZIDIME 2 S CIPROFLOXACIN >=4 R GENTAMICIN 4 S IMIPENEM >=16 R LEVOFLOXACIN >=8 R TOBRAMYCIN 2 S PHYSICAL EXAMINATION: VITAL SIGNS: Afebrile, VSS, NAD GENERAL: 86 yo F, chronic debility on the Vent, non-communicative HEENT: Unremarkable NECK: TRACH secure to Vent LUNGS: Equal chest rise without dyspnea on observation HEART: RRR ABDOMEN: Soft, PEG site w/maceration, excoriation dermatitis EXTREMITIES: Warm, dependent edema ID IMPRESSION: 86 yo F admit with: 1. Severe sepsis status post shock = RESOLVING * Tmax 101.1 today -- C.Diff ?, WBC slightly elevated * Blood cx (-) 2. Clostridium difficile colitis. 3. Escherichia coli extended-spectrum beta-lactamase urinary tract infection. * 04/13/17: URINE CULTURE Final Organism 1 ESCHERICHIA COLI (ESBL) COLONY COUNT 30,000 - 40,000 CFU/ml . MULTI DRUG RESISTANT ORGANISM 4. G-tube site cellulitis = Glabrata 5. 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 Acute on chronic anemia. 7. Acute kidney failure, possibly on chronic kidney disease. (-) MRSA Nares INVASIVES: PIV CURRENT ABX: ABD DAY # 5 =>Merrem, Diflucan, Flagyl Zyvox-> DC'd 04/17 ID RECOMMENDATION 1. DC Zyvox-> 04/17 2. Anticipate short course of Merrem for low colony count UTI 3. Continue Flagyl for C.Diff & Diflucan for fungal dermatitis under breasts . Problems: Consultation Date/Type/Reason Admit Date/Time April 14, 2017 at 00:00 Type of Consultation: ID Referring Provider: ALFONSO PERRY MD Exam/Review of Systems Vital Signs Vitals Vital Signs Date Time Temp Pulse Resp B/P Pulse Ox O2 Delivery O2 Flow Rate FiO2 04/18/17 16:13 88 04/18/17 15:33 101.8 16 155/75 97 04/18/17 15:28 30 04/17/17 15:15 Mechanical Ventilator Intake and Output 04/17/17 04/17/17 04/18/17 15:00 23:00 07:00 Intake Total 1590 ml 1860 ml Output Total 800 ml 950 ml Balance 790 ml 910 ml Results Result Diagram: 04/18/17 0550 04/18/17 0550 Results 24 hrs Laboratory Tests Test 04/17/17 18:17 04/18/17 00:53 04/18/17 05:26 04/18/17 05:35 Bedside Glucose 106 138 133 Phosphorus Level 3.0 Magnesium Level 2.1 Test 04/18/17 05:50 04/18/17 10:41 04/18/17 12:19 White Blood Count 12.8 H Red Blood Count 2.98 #L Hemoglobin 9.3 #L Hematocrit 29.9 #L Mean Corpuscular Volume 100.3 Mean Corpuscular Hemoglobin 31.2 Mean Corpuscular Hemoglobin Concent 31.1 L Red Cell Distribution Width 14.0 Platelet Count 145 Mean Platelet Volume 12.8 H Neutrophils % 78.4 H Lymphocytes % 16.1 Monocytes % 4.2 Eosinophils % 0.6 Basophils % 0.2 Nucleated Red Blood Cells % 0.0 Neutrophils # 10.0 H Lymphocytes # 2.1 Monocytes # 0.5 Eosinophils # 0.1 Basophils # 0.0 Nucleated Red Blood Cells # 0.0 Sodium Level 142 Potassium Level 4.5 Chloride Level 110 Carbon Dioxide Level 27 Anion Gap 10 # Blood Urea Nitrogen 26 H Creatinine 0.98 Glucose Level 166 Calcium Level 8.5 Bedside Glucose 197 151 Medications Medications Current Medications Lorazepam (Ativan) 0.5 mg Q6H PRN IV ANXIETY Last administered on 04/18/17 02: 25; Admin Dose 0.5 MG; Start 04/14/17 at 11:00 Ondansetron HCl (Zofran Inj) 4 mg Q6H PRN IV NAUSEA AND/OR VOMITING; Start at 11:00 Morphine Sulfate (morphine) 2 mg Q4H PRN IV PAIN LEVEL 7-10; Start 04/14/17 at 11:00 Enoxaparin Sodium (Lovenox) 30 mg DAILY SC Last administered on 04/18/17 08:52 ; Admin Dose 30 MG; Start 04/15/17 at 09:00 Miscellaneous Information 1 ea NOTE XX ; Start 04/14/17 at 11:30 Glucose (Glutose) 15 gm Q15M PRN PO DECREASED GLUCOSE; Start 04/14/17 at 11:30 Glucose (Glutose) 22.5 gm Q15M PRN PO DECREASED GLUCOSE; Start 04/14/17 at 11: 30 Dextrose (D50w Syringe) 25 ml Q15M PRN IV DECREASED GLUCOSE; Start 04/14/17 at 11:30 Dextrose (D50w Syringe) 50 ml Q15M PRN IV DECREASED GLUCOSE; Start 04/14/17 at 11:30 Glucagon (Glucagen) 1 mg Q15M PRN IM DECREASED GLUCOSE; Start 04/14/17 at 11:30 Glucose 15 gm 15 gm Q15M PRN BUCCAL DECREASED GLUCOSE; Start 04/14/17 at 11:30 Potassium Chloride/Dextrose 1,000 ml @ 50 mls/hr Q20H IV Last administered on 04/18/17 07:47; Admin Dose 50 MLS/HR; Start 04/15/17 at 09:00 Meropenem (Merrem 1 Gm/100 ml (Pmx)) 100 ml @ 200 mls/hr Q8 IVPB Last administered on 04/18/17 13:30; Admin Dose 200 MLS/HR; Start 04/15/17 at 14:00 Metronidazole (Flagyl) 500 mg Q8 GTB Last administered on 04/18/17 13:30; Admin Dose 500 MG; Start 04/16/17 at 13:00 Fluconazole (Diflucan) 100 mg DAILY PO Last administered on 04/18/17 08:43; Admin Dose 100 MG; Start 04/17/17 at 09:00 Nystatin (Nystatin Oint) 1 applic TID TOP Last administered on 04/18/17 12:21 ; Admin Dose 1 APPLIC; Start 04/16/17 at 21:00 Insulin Aspart (Novolog Insulin Pen) NOVOLOG *MILD* ALGORI... Q6 SC Last administered on 04/18/17 13:19; Admin Dose 1 UNIT; Start 04/17/17 at 18:00 Acetaminophen (Tylenol Liquid) 650 mg Q6H PRN GTB PAIN AND OR ELEVATED TEMP Last administered on 04/18/17 15:42; Admin Dose 650 MG; Start 04/17/17 at 21:30 Lansoprazole (Prevacid) 30 mg DAILY@06 GTB ; Start 04/19/17 at 06:00 KEITH SEQUEIRA NP April 18, 2017 16:22
[2017-04-19] VITALS (23 sets, daily range): BP systolic 100–130; BP diastolic 45–68; PULSE 62–77; RESP 11–20
[2017-04-19] MEDS: NYSTATIN 15 GM OINT TOP SCH ×4 (00:52→21:54)
[2017-04-19] MEDS: D5W + KCL 20 MEQ 1,000 ML IV SCH ×3 (03:17→23:17)
[2017-04-19] MEDS: INSULIN ASPART [NOVOLOG] 3 ML PEN SC SCH ×4 (05:07→17:27)
[2017-04-19] MEDS: metroNIDAZOLE 500 MG TAB GTB SCH ×3 (05:08→21:54)
[2017-04-19] MEDS: MEROPENEM 1 GM/100 ML (PMX) 100 ML IVPB SCH ×3 (05:08→21:54)
[2017-04-19] MEDS: LANSOPRAZOLE 30 MG CAP GTB SCH (05:08)
[2017-04-19] MEDS: LORAZEPAM 2 MG INJ IV PRN (06:23)
[2017-04-19 06:43] LABS: ADD SCAN DIFF NO
[2017-04-19 07:09] LABS: BASOPHILS % 0.2 % (0.0-2.0); EOSINOPHILS # 0.1 10^3/ul (0.0-0.5); EOSINOPHILS % 1.4 % (0.0-7.0); HEMATOCRIT 27.1 % (37.0-47.0); HEMOGLOBIN 8.5 g/dl (12.0-16.0); LYMPHOCYTES # 1.6 10^3/ul (0.8-2.9); LYMPHOCYTES % 24.5 % (15.0-51.0); MEAN CORPUSCULAR HEMOGLOBIN 30.8 pg (29.0-33.0); MEAN CORPUSCULAR HGB CONC 31.4 g/dl (32.0-37.0); MEAN CORPUSCULAR VOLUME 98.2 fl (82.0-101.0); MEAN PLATELET VOLUME 12.4 fl (7.4-10.4); MONOCYTE # 0.4 10^3/ul (0.3-0.9); NEUTROPHIL # 4.3 10^3/ul (1.6-7.5); NEUTROPHILS % 67.3 % (39.0-77.0); PLATELET COUNT 168 10^3/UL (140-415); RED BLOOD COUNT 2.76 10^6/ul (4.20-5.40); RED CELL DISTRIBUTION WIDTH 13.8 % (11.5-14.5); WHITE BLOOD COUNT 6.4 10^3/ul (4.8-10.8)
[2017-04-19 07:15] LABS: MAGNESIUM 2.2 mg/dl (1.7-2.5); PHOSPHORUS 2.6 mg/dl (2.5-4.9)
[2017-04-19 07:29] LABS: CREATININE 0.88 mg/dl (0.44-1.00)
[2017-04-19 07:30] LABS: CALCIUM 8.5 mg/dl (8.4-10.2); POTASSIUM 4.5 mmol/L (3.5-5.1)
[2017-04-19] MEDS: FLUCONAZOLE 100 MG TAB PO SCH (09:32)
[2017-04-19] MEDS: ENOXAPARIN 30 MG/0.3 ML SYG SC SCH (09:43)
--- NOTE | 2017-04-19 11:23 | CONS ---
Date/Time of Note Date/Time of Note DATE: 04/19/17 TIME: 11:21 Consult Date/Type/Reason Admit Date/Time April 14, 2017 at 00:00 Type of Consultation: ID Ordering Provider: ALFONSO PERRY MD Subjective resting , nad, remains on vent, Trach intact, afebrile, will get NGT- family agreed. monitor H/H.dw staff Objective Vital Signs Date Time Temp Pulse Resp B/P Pulse Ox O2 Delivery O2 Flow Rate FiO2 04/19/17 10:09 30 04/19/17 09:10 65 12 100 04/19/17 08:10 98.6 100/45 04/17/17 15:15 Mechanical Ventilator Intake and Output 04/18/17 04/18/17 04/19/17 15:00 23:00 07:00 Intake Total 100 ml 950 ml 1550 ml Output Total 1000 ml 1650 ml Balance 100 ml -50 ml -100 ml Exam GENERAL: NAD, on ventilator, UNRESPONSIVE. NECK: Supple, no JVD. The patient has a tracheostomy site. LUNGS: Decreased breath sounds at both lung bases bilaterally HEART: S1, S2, with regular rhythm without murmur or gallop. ABDOMEN: Soft, nontender, G-tube site has some excoriation and redness around the stoma. There is no guarding or rebound tenderness.gt out EXTREMITIES: Bilateral contractures/ Muscle weakness Results/Medications Result Diagram: 04/19/17 0625 04/19/17 0605 Results 24 hrs Laboratory Tests Test 04/18/17 12:19 04/18/17 17:41 04/19/17 00:48 04/19/17 05:06 Bedside Glucose 151 155 115 129 Test 04/19/17 06:05 04/19/17 06:25 Sodium Level 142 Potassium Level 4.5 Chloride Level 105 Carbon Dioxide Level 27 Anion Gap 15 Blood Urea Nitrogen 31 H Creatinine 0.88 Glucose Level 117 # Calcium Level 8.5 White Blood Count 6.4 # Red Blood Count 2.76 L Hemoglobin 8.5 L Hematocrit 27.1 L Mean Corpuscular Volume 98.2 Mean Corpuscular Hemoglobin 30.8 Mean Corpuscular Hemoglobin Concent 31.4 L Red Cell Distribution Width 13.8 Platelet Count 168 Mean Platelet Volume 12.4 H Neutrophils % 67.3 Lymphocytes % 24.5 Monocytes % 6.0 Eosinophils % 1.4 Basophils % 0.2 Nucleated Red Blood Cells % 0.0 Neutrophils # 4.3 Lymphocytes # 1.6 Monocytes # 0.4 Eosinophils # 0.1 Basophils # 0.0 Nucleated Red Blood Cells # 0.0 Phosphorus Level 2.6 Magnesium Level 2.2 Medications Current Medications Lorazepam (Ativan) 0.5 mg Q6H PRN IV ANXIETY Last administered on 04/19/17 06: 23; Admin Dose 0.5 MG; Start 04/14/17 at 11:00 Ondansetron HCl (Zofran Inj) 4 mg Q6H PRN IV NAUSEA AND/OR VOMITING; Start at 11:00 Morphine Sulfate (morphine) 2 mg Q4H PRN IV PAIN LEVEL 7-10; Start 04/14/17 at 11:00 Enoxaparin Sodium (Lovenox) 30 mg DAILY SC Last administered on 04/19/17 09:43 ; Admin Dose 30 MG; Start 04/15/17 at 09:00 Miscellaneous Information 1 ea NOTE XX ; Start 04/14/17 at 11:30 Glucose (Glutose) 15 gm Q15M PRN PO DECREASED GLUCOSE; Start 04/14/17 at 11:30 Glucose (Glutose) 22.5 gm Q15M PRN PO DECREASED GLUCOSE; Start 04/14/17 at 11: 30 Dextrose (D50w Syringe) 25 ml Q15M PRN IV DECREASED GLUCOSE; Start 04/14/17 at 11:30 Dextrose (D50w Syringe) 50 ml Q15M PRN IV DECREASED GLUCOSE; Start 04/14/17 at 11:30 Glucagon (Glucagen) 1 mg Q15M PRN IM DECREASED GLUCOSE; Start 04/14/17 at 11:30 Glucose 15 gm 15 gm Q15M PRN BUCCAL DECREASED GLUCOSE; Start 04/14/17 at 11:30 Potassium Chloride/Dextrose 1,000 ml @ 50 mls/hr Q20H IV Last administered on 04/18/17 20:23; Admin Dose 50 MLS/HR; Start 04/15/17 at 09:00 Meropenem (Merrem 1 Gm/100 ml (Pmx)) 100 ml @ 200 mls/hr Q8 IVPB Last administered on 04/19/17 05:08; Admin Dose 200 MLS/HR; Start 04/15/17 at 14:00 Metronidazole (Flagyl) 500 mg Q8 GTB Last administered on 04/19/17 05:08; Admin Dose 500 MG; Start 04/16/17 at 13:00 Fluconazole (Diflucan) 100 mg DAILY PO Last administered on 04/19/17 09:32; Admin Dose 100 MG; Start 04/17/17 at 09:00 Nystatin (Nystatin Oint) 1 applic TID TOP Last administered on 04/19/17 09:33 ; Admin Dose 1 APPLIC; Start 04/16/17 at 21:00 Insulin Aspart (Novolog Insulin Pen) NOVOLOG *MILD* ALGORI... Q6 SC Last administered on 04/18/17 17:47; Admin Dose 1 UNIT; Start 04/17/17 at 18:00 Acetaminophen (Tylenol Liquid) 650 mg Q6H PRN GTB PAIN AND OR ELEVATED TEMP Last administered on 04/18/17 15:42; Admin Dose 650 MG; Start 04/17/17 at 21:30 Lansoprazole (Prevacid) 30 mg DAILY@06 GTB Last administered on 04/19/17 05:08 ; Admin Dose 30 MG; Start 04/19/17 at 06:00 Assessment/Plan Chief Complaint/Hosp Course 1. Acute kidney injury with high BUN 89, likely secondary to septic shock from sepsis secondary to urinary tract infections. 2. Septic shock secondary to urinary tract infection. 3. Hypernatremia. Sodium 142- resolved- secondary to large free water deficit. 4. G-tube site cellulitis. 5. Ventilator-dependent respiratory failure, status post tracheostomy. - aspiration precautions 6. Dysphagia, status post gastrostomy tube placement. 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 9. Hypertension. 10. Hyperlipidemia. 11. Anemia- monitor H/H, am CBC PLAN: -good urine output 1.7 liter, BUN/Cr improved- 0.98, Na improved 142- with IVF D5W continue D5W [id number] KCL at 60 cc/hr Vent Management per pulmonary Will continue to follow up Further recommendations depend upon patient's clinical course. Plan of care discussed with Dr Rush Mcdaniel/staff Problems: EDUARDO PATTEN April 19, 2017 11:23
--- NOTE | 2017-04-19 11:31 | PN ---
Date/Time of Note Date/Time of Note DATE: 04/19/17 TIME: 11:25 Assessment/Plan VTE Prophylaxis VTE Prophylaxis Intervention: anti-embolic stocking, other Lines/Catheters IV Catheter Type (from [facility]): Peripheral IV Urinary Cath still in place: Yes Reason Cath still needed: urinary retention Assessment/Plan Chief Complaint/Hosp Course G.Tube leaks Problems: (1) Encounter for feeding tube placement Status: Chronic Comment: unco opertaive Assessment/Plan I attempted to place a N.G TUBE PT is very un co operative, plan continue wound and G.T care. family not at bedside. spoke with R.N. Subjective 24 Hr Interval Summary Gastrointestinal: constipation, other (G.TUBE leakage) VTE Prophylaxis VTE Prophylaxis Intervention: SCD's Lines/Catheters (ICD-10 Req.) IV Catheter Type (from [facility]): Peripheral IV Celis in Place (from [facility]): Yes Cont'd celis catheter reason: urinary retention Exam/Review of Systems Vital Signs Vitals Vital Signs Date Time Temp Pulse Resp B/P Pulse Ox O2 Delivery O2 Flow Rate FiO2 04/19/17 10:09 30 04/19/17 09:10 65 12 100 04/19/17 08:10 98.6 100/45 04/17/17 15:15 Mechanical Ventilator Intake and Output 04/18/17 04/18/17 04/19/17 15:00 23:00 07:00 Intake Total 100 ml 950 ml 1550 ml Output Total 1000 ml 1650 ml Balance 100 ml -50 ml -100 ml Results Result Diagram: 04/19/17 0625 04/19/17 0605 Results 24 hrs Laboratory Tests Test 04/18/17 12:19 04/18/17 17:41 04/19/17 00:48 04/19/17 05:06 Bedside Glucose 151 155 115 129 Test 04/19/17 06:05 04/19/17 06:25 Sodium Level 142 Potassium Level 4.5 Chloride Level 105 Carbon Dioxide Level 27 Anion Gap 15 Blood Urea Nitrogen 31 H Creatinine 0.88 Glucose Level 117 # Calcium Level 8.5 White Blood Count 6.4 # Red Blood Count 2.76 L Hemoglobin 8.5 L Hematocrit 27.1 L Mean Corpuscular Volume 98.2 Mean Corpuscular Hemoglobin 30.8 Mean Corpuscular Hemoglobin Concent 31.4 L Red Cell Distribution Width 13.8 Platelet Count 168 Mean Platelet Volume 12.4 H Neutrophils % 67.3 Lymphocytes % 24.5 Monocytes % 6.0 Eosinophils % 1.4 Basophils % 0.2 Nucleated Red Blood Cells % 0.0 Neutrophils # 4.3 Lymphocytes # 1.6 Monocytes # 0.4 Eosinophils # 0.1 Basophils # 0.0 Nucleated Red Blood Cells # 0.0 Phosphorus Level 2.6 Magnesium Level 2.2 Medications Medications Current Medications Lorazepam (Ativan) 0.5 mg Q6H PRN IV ANXIETY Last administered on 04/19/17 06: 23; Admin Dose 0.5 MG; Start 04/14/17 at 11:00 Ondansetron HCl (Zofran Inj) 4 mg Q6H PRN IV NAUSEA AND/OR VOMITING; Start at 11:00 Morphine Sulfate (morphine) 2 mg Q4H PRN IV PAIN LEVEL 7-10; Start 04/14/17 at 11:00 Enoxaparin Sodium (Lovenox) 30 mg DAILY SC Last administered on 04/19/17 09:43 ; Admin Dose 30 MG; Start 04/15/17 at 09:00 Miscellaneous Information 1 ea NOTE XX ; Start 04/14/17 at 11:30 Glucose (Glutose) 15 gm Q15M PRN PO DECREASED GLUCOSE; Start 04/14/17 at 11:30 Glucose (Glutose) 22.5 gm Q15M PRN PO DECREASED GLUCOSE; Start 04/14/17 at 11: 30 Dextrose (D50w Syringe) 25 ml Q15M PRN IV DECREASED GLUCOSE; Start 04/14/17 at 11:30 Dextrose (D50w Syringe) 50 ml Q15M PRN IV DECREASED GLUCOSE; Start 04/14/17 at 11:30 Glucagon (Glucagen) 1 mg Q15M PRN IM DECREASED GLUCOSE; Start 04/14/17 at 11:30 Glucose 15 gm 15 gm Q15M PRN BUCCAL DECREASED GLUCOSE; Start 04/14/17 at 11:30 Potassium Chloride/Dextrose 1,000 ml @ 50 mls/hr Q20H IV Last administered on 04/18/17 20:23; Admin Dose 50 MLS/HR; Start 04/15/17 at 09:00 Meropenem (Merrem 1 Gm/100 ml (Pmx)) 100 ml @ 200 mls/hr Q8 IVPB Last administered on 04/19/17 05:08; Admin Dose 200 MLS/HR; Start 04/15/17 at 14:00 Metronidazole (Flagyl) 500 mg Q8 GTB Last administered on 04/19/17 05:08; Admin Dose 500 MG; Start 04/16/17 at 13:00 Fluconazole (Diflucan) 100 mg DAILY PO Last administered on 04/19/17 09:32; Admin Dose 100 MG; Start 04/17/17 at 09:00 Nystatin (Nystatin Oint) 1 applic TID TOP Last administered on 04/19/17 09:33 ; Admin Dose 1 APPLIC; Start 04/16/17 at 21:00 Insulin Aspart (Novolog Insulin Pen) NOVOLOG *MILD* ALGORI... Q6 SC Last administered on 04/18/17 17:47; Admin Dose 1 UNIT; Start 04/17/17 at 18:00 Acetaminophen (Tylenol Liquid) 650 mg Q6H PRN GTB PAIN AND OR ELEVATED TEMP Last administered on 04/18/17 15:42; Admin Dose 650 MG; Start 04/17/17 at 21:30 Lansoprazole (Prevacid) 30 mg DAILY@06 GTB Last administered on 04/19/17 05:08 ; Admin Dose 30 MG; Start 04/19/17 at 06:00 Copies To: CC: ALFONSO PERRY MD,JESSE Cronin MD April 19, 2017 11:31
--- NOTE | 2017-04-19 13:18 | PN ---
Date/Time of Note Date/Time of Note DATE: 04/19/17 TIME: 12:57 Assessment/Plan VTE Prophylaxis VTE Prophylaxis Intervention: SCD's Lines/Catheters IV Catheter Type (from Nrsg): Peripheral IV Urinary Cath still in place: Yes Reason Cath still needed: other (indicate) (chronic urinary retention ) Assessment/Plan Assessment/Plan 86 yo female with 1. Septic shock secondary to urinary tract infection and also with noted G- tube site cellulitis with hx of MRSA infection. Urine cx with ESBL sensitive to Carbapenem and also C diff positive. Continue IVF. Meropenem, Flagyl and Diflucan. ID following Blood culture NGTD Leukocytosis resolved 2. Acute kidney injury likely ATN and pre renal secondary to septic shock. Appreciate recs from Dr Mcdaniel. Resolved. Continue IVF at lower rate and avoiding Nephrotoxic meds. Further recs per Nephro. 3. Hypernatremia: Resolved. IVF adjusted per Nephro 4. G-tube site cellulitis. On Meropenem and antifungal. Tolerating tube feeding , ? leaking G tube, Dr Thompson following, plan per covering MD was to remove Gtube and place NGT but patient not cooperative for NGT Will reassess with Dr Thompson or GI in AM for final plans regarding G tube .. if no change then need to d/c patient back to SNF on abx and wound care 5. Ventilator-dependent respiratory failure, status post tracheostomy. Stable on current vent setting and Pulmonary following 6. Dysphagia, status post gastrostomy tube placement. Appreciate assistance from Dr Thompson, TF resumed with free H2O, well tolerated CT abdo/pelvis shows no abscess. 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 Good UOP 9. Chronic anemia: Hb < 7.5 x 2 days now, s/p 1 units Transfuse 1 unit pRBC. Hb stable 10. Hypertension: off meds and BP stable 11. Hyperlipidemia: resume statins later. Prophylaxis: Lovenox for DVT ppx and Protonix for GI ppx Disposition: Telemetry level of care. Follow up GI, Nephro, and ID recs today. D/c plan back to SNF in the next 24 hrs if no need or unable to change G tube Subjective 24 Hr Interval Summary Free Text/Dictation Patient doing Ok but even GI was unable to place NGT as patient bitting and uncooperative Gtube left in place with continuing wound care and Tube feeding resumed Will clarify with GI again in AM, if no plan to change the G tube site then patient to be discharged back to [facility] Exam/Review of Systems Vital Signs Vitals Vital Signs Date Time Temp Pulse Resp B/P Pulse Ox O2 Delivery O2 Flow Rate FiO2 04/19/17 12:28 77 04/19/17 11:54 98.2 18 118/56 100 04/19/17 11:15 30 04/17/17 15:15 Mechanical Ventilator Intake and Output 04/18/17 04/18/17 04/19/17 15:00 23:00 07:00 Intake Total 100 ml 950 ml 1550 ml Output Total 1000 ml 1650 ml Balance 100 ml -50 ml -100 ml Exam Constitutional: alert, other (s/p trach and peg, non verbal ) Respiratory: clear to auscultation, other (trached on Vent ) Cardiovascular: nl pulses, regular rate and rhythm Gastrointestinal: non-tender, soft Musculoskeletal: other (Poor muscle tone ) Extremities: normal pulses Neurological: PACKAGE CRIMPER II-XII intact, confused, other (non verbal and bed bound ) Results Result Diagram: 04/19/17 0625 04/19/17 0605 Results 24 hrs Laboratory Tests Test 04/18/17 17:41 04/19/17 00:48 04/19/17 05:06 04/19/17 06:05 Bedside Glucose 155 115 129 Sodium Level 142 Potassium Level 4.5 Chloride Level 105 Carbon Dioxide Level 27 Anion Gap 15 Blood Urea Nitrogen 31 H Creatinine 0.88 Glucose Level 117 # Calcium Level 8.5 Test 04/19/17 06:25 04/19/17 11:33 White Blood Count 6.4 # Red Blood Count 2.76 L Hemoglobin 8.5 L Hematocrit 27.1 L Mean Corpuscular Volume 98.2 Mean Corpuscular Hemoglobin 30.8 Mean Corpuscular Hemoglobin Concent 31.4 L Red Cell Distribution Width 13.8 Platelet Count 168 Mean Platelet Volume 12.4 H Neutrophils % 67.3 Lymphocytes % 24.5 Monocytes % 6.0 Eosinophils % 1.4 Basophils % 0.2 Nucleated Red Blood Cells % 0.0 Neutrophils # 4.3 Lymphocytes # 1.6 Monocytes # 0.4 Eosinophils # 0.1 Basophils # 0.0 Nucleated Red Blood Cells # 0.0 Phosphorus Level 2.6 Magnesium Level 2.2 Bedside Glucose 130 Medications Medications Current Medications Lorazepam (Ativan) 0.5 mg Q6H PRN IV ANXIETY Last administered on 04/19/17 06: 23; Admin Dose 0.5 MG; Start 04/14/17 at 11:00 Ondansetron HCl (Zofran Inj) 4 mg Q6H PRN IV NAUSEA AND/OR VOMITING; Start at 11:00 Morphine Sulfate (morphine) 2 mg Q4H PRN IV PAIN LEVEL 7-10; Start 04/14/17 at 11:00 Enoxaparin Sodium (Lovenox) 30 mg DAILY SC Last administered on 04/19/17 09:43 ; Admin Dose 30 MG; Start 04/15/17 at 09:00 Miscellaneous Information 1 ea NOTE XX ; Start 04/14/17 at 11:30 Glucose (Glutose) 15 gm Q15M PRN PO DECREASED GLUCOSE; Start 04/14/17 at 11:30 Glucose (Glutose) 22.5 gm Q15M PRN PO DECREASED GLUCOSE; Start 04/14/17 at 11: 30 Dextrose (D50w Syringe) 25 ml Q15M PRN IV DECREASED GLUCOSE; Start 04/14/17 at 11:30 Dextrose (D50w Syringe) 50 ml Q15M PRN IV DECREASED GLUCOSE; Start 04/14/17 at 11:30 Glucagon (Glucagen) 1 mg Q15M PRN IM DECREASED GLUCOSE; Start 04/14/17 at 11:30 Glucose 15 gm 15 gm Q15M PRN BUCCAL DECREASED GLUCOSE; Start 04/14/17 at 11:30 Potassium Chloride/Dextrose 1,000 ml @ 50 mls/hr Q20H IV Last administered on 04/18/17 20:23; Admin Dose 50 MLS/HR; Start 04/15/17 at 09:00 Meropenem (Merrem 1 Gm/100 ml (Pmx)) 100 ml @ 200 mls/hr Q8 IVPB Last administered on 04/19/17 05:08; Admin Dose 200 MLS/HR; Start 04/15/17 at 14:00 Metronidazole (Flagyl) 500 mg Q8 GTB Last administered on 04/19/17 05:08; Admin Dose 500 MG; Start 04/16/17 at 13:00 Fluconazole (Diflucan) 100 mg DAILY PO Last administered on 04/19/17 09:32; Admin Dose 100 MG; Start 04/17/17 at 09:00 Nystatin (Nystatin Oint) 1 applic TID TOP Last administered on 04/19/17 09:33 ; Admin Dose 1 APPLIC; Start 04/16/17 at 21:00 Insulin Aspart (Novolog Insulin Pen) NOVOLOG *MILD* ALGORI... Q6 SC Last administered on 04/18/17 17:47; Admin Dose 1 UNIT; Start 04/17/17 at 18:00 Acetaminophen (Tylenol Liquid) 650 mg Q6H PRN GTB PAIN AND OR ELEVATED TEMP Last administered on 04/18/17 15:42; Admin Dose 650 MG; Start 04/17/17 at 21:30 Lansoprazole (Prevacid) 30 mg DAILY@06 GTB Last administered on 04/19/17 05:08 ; Admin Dose 30 MG; Start 04/19/17 at 06:00 CINTIA GUSTAFSON April 19, 2017 13:07
--- NOTE | 2017-04-19 13:23 | CONS ---
Date/Time of Note Date/Time of Note DATE: 04/19/17 TIME: 13:22 Consult Date/Type/Reason Admit Date/Time April 14, 2017 at 00:00 Type of Consultation: Pulm Ordering Provider: ALFONSO PERRY MD Subjective No events on mech vent. Objective Vital Signs Date Time Temp Pulse Resp B/P Pulse Ox O2 Delivery O2 Flow Rate FiO2 04/19/17 12:28 77 04/19/17 11:54 98.2 18 118/56 100 04/19/17 11:15 30 04/17/17 15:15 Mechanical Ventilator Intake and Output 04/18/17 04/18/17 04/19/17 15:00 23:00 07:00 Intake Total 100 ml 950 ml 1550 ml Output Total 1000 ml 1650 ml Balance 100 ml -50 ml -100 ml Exam CARDIAC: S1, S2, no added sounds or murmurs. CHEST: Diminished air entry bilaterally. ABDOMEN: Soft, nontender. No guarding or rebound. EXTREMITIES: No cyanosis, clubbing, 2+ edema. Results/Medications Result Diagram: 04/19/17 0625 04/19/17 0605 Results 24 hrs Laboratory Tests Test 04/18/17 17:41 04/19/17 00:48 04/19/17 05:06 04/19/17 06:05 Bedside Glucose 155 115 129 Sodium Level 142 Potassium Level 4.5 Chloride Level 105 Carbon Dioxide Level 27 Anion Gap 15 Blood Urea Nitrogen 31 H Creatinine 0.88 Glucose Level 117 # Calcium Level 8.5 Test 04/19/17 06:25 04/19/17 11:33 White Blood Count 6.4 # Red Blood Count 2.76 L Hemoglobin 8.5 L Hematocrit 27.1 L Mean Corpuscular Volume 98.2 Mean Corpuscular Hemoglobin 30.8 Mean Corpuscular Hemoglobin Concent 31.4 L Red Cell Distribution Width 13.8 Platelet Count 168 Mean Platelet Volume 12.4 H Neutrophils % 67.3 Lymphocytes % 24.5 Monocytes % 6.0 Eosinophils % 1.4 Basophils % 0.2 Nucleated Red Blood Cells % 0.0 Neutrophils # 4.3 Lymphocytes # 1.6 Monocytes # 0.4 Eosinophils # 0.1 Basophils # 0.0 Nucleated Red Blood Cells # 0.0 Phosphorus Level 2.6 Magnesium Level 2.2 Bedside Glucose 130 Medications Current Medications Lorazepam (Ativan) 0.5 mg Q6H PRN IV ANXIETY Last administered on 04/19/17 06: 23; Admin Dose 0.5 MG; Start 04/14/17 at 11:00 Ondansetron HCl (Zofran Inj) 4 mg Q6H PRN IV NAUSEA AND/OR VOMITING; Start at 11:00 Morphine Sulfate (morphine) 2 mg Q4H PRN IV PAIN LEVEL 7-10; Start 04/14/17 at 11:00 Enoxaparin Sodium (Lovenox) 30 mg DAILY SC Last administered on 04/19/17 09:43 ; Admin Dose 30 MG; Start 04/15/17 at 09:00 Miscellaneous Information 1 ea NOTE XX ; Start 04/14/17 at 11:30 Glucose (Glutose) 15 gm Q15M PRN PO DECREASED GLUCOSE; Start 04/14/17 at 11:30 Glucose (Glutose) 22.5 gm Q15M PRN PO DECREASED GLUCOSE; Start 04/14/17 at 11: 30 Dextrose (D50w Syringe) 25 ml Q15M PRN IV DECREASED GLUCOSE; Start 04/14/17 at 11:30 Dextrose (D50w Syringe) 50 ml Q15M PRN IV DECREASED GLUCOSE; Start 04/14/17 at 11:30 Glucagon (Glucagen) 1 mg Q15M PRN IM DECREASED GLUCOSE; Start 04/14/17 at 11:30 Glucose 15 gm 15 gm Q15M PRN BUCCAL DECREASED GLUCOSE; Start 04/14/17 at 11:30 Potassium Chloride/Dextrose 1,000 ml @ 50 mls/hr Q20H IV Last administered on 04/18/17 20:23; Admin Dose 50 MLS/HR; Start 04/15/17 at 09:00 Meropenem (Merrem 1 Gm/100 ml (Pmx)) 100 ml @ 200 mls/hr Q8 IVPB Last administered on 04/19/17 13:13; Admin Dose 200 MLS/HR; Start 04/15/17 at 14:00 Metronidazole (Flagyl) 500 mg Q8 GTB Last administered on 04/19/17 13:13; Admin Dose 500 MG; Start 04/16/17 at 13:00 Fluconazole (Diflucan) 100 mg DAILY PO Last administered on 04/19/17 09:32; Admin Dose 100 MG; Start 04/17/17 at 09:00 Nystatin (Nystatin Oint) 1 applic TID TOP Last administered on 04/19/17 13:13 ; Admin Dose 1 APPLIC; Start 04/16/17 at 21:00 Insulin Aspart (Novolog Insulin Pen) NOVOLOG *MILD* ALGORI... Q6 SC Last administered on 04/18/17 17:47; Admin Dose 1 UNIT; Start 04/17/17 at 18:00 Acetaminophen (Tylenol Liquid) 650 mg Q6H PRN GTB PAIN AND OR ELEVATED TEMP Last administered on 04/18/17 15:42; Admin Dose 650 MG; Start 04/17/17 at 21:30 Lansoprazole (Prevacid) 30 mg DAILY@06 GTB Last administered on 04/19/17 05:08 ; Admin Dose 30 MG; Start 04/19/17 at 06:00 Assessment/Plan Additional Assessment/Plan IMPRESSION: 1. G-tube site cellulitis 2. Ventilatory-dependent respiratory failure. 3. Encephalopathy. 4. Dysphagia with G-tube. 5. 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 Hypernatremia PLAN: 1. Vent support; BD's/CPT 2. Abx per ID 3. Wound care 4. Tube feeding/Free h20 5. Ok to D/C to SNF from Pulm perspective LALO NEWMAN MD April 19, 2017 13:23
--- NOTE | 2017-04-19 15:28 | CONS ---
Date/Time of Note Date/Time of Note DATE: 04/19/17 TIME: 15:20 Assessment/Plan Assessment/Plan Chief Complaint/Hosp Course ID PROGRESS NOTE CURRENT ABX: ABD DAY # 6 =>Merrem, Diflucan, Flagyl GT Zyvox-> DC'd 04/17 24H INTERVAL SUMMARY * Afebrile today w/Tm spike yesterday ?PRBCs vs C.Diff -- WBC down today - Non -communicative on the Vent * 04/14/17 CXR IMPRESSION:1. Chronic interstitial age-related changes of the lungs are noted with improved aeration compared to the prior study and no evidence of acute intrathoracic pathology. 2. Nonspecific elevation of the right hemidiaphragm but 3. Tracheostomy in good position. * MICRO: (+)C.Diff Colitis, GT-> Glabrata; UTI = E.coli/ESBL low colony counts, Trach (+)PSAR * RESPIRATORY CULTURE Final Organism 1 PSEUDOMONAS AERUGINOSA QUANTITY 2+ Organism 2 STENOTROPHOMONAS MALTOPHILIA QUANTITY 2+ P.AERUG STENMAL M.I.C. RX M.I.C. RX --------- --- --------- --- AMIKACIN 8 S AZTREONAM S CEFEPIME <=1 S CEFTAZIDIME 2 S CIPROFLOXACIN >=4 R GENTAMICIN 4 S IMIPENEM >=16 R LEVOFLOXACIN >=8 R 0.5 S TOBRAMYCIN 2 S TRIMETHOPRIM/SULFAMETHOXAZOLE <=20 S PIPERACILLIN/TAZOBACTAM S PHYSICAL EXAMINATION: VITAL SIGNS: Afebrile, VSS, NAD GENERAL: 86 yo F, chronic debility on the Vent, non-communicative HEENT: Unremarkable NECK: TRACH secure to Vent LUNGS: Equal chest rise without dyspnea on observation HEART: RRR ABDOMEN: Soft, PEG site w/maceration, excoriation dermatitis EXTREMITIES: Warm, dependent edema ID IMPRESSION: 86 yo F admit with: 1. Severe sepsis status post shock = RESOLVING * Fever yesterday - C.Diff * Blood cx (-) 2. Clostridium difficile colitis. 3. Escherichia coli extended-spectrum beta-lactamase urinary tract infection. * 04/13/17: URINE CULTURE Final Organism 1 ESCHERICHIA COLI (ESBL) COLONY COUNT 30,000 - 40,000 CFU/ml . MULTI DRUG RESISTANT ORGANISM 4. G-tube site cellulitis = Glabrata 5. Chronic respiratory failure=> CXR w/interstitial lung disease, likely chronic (+/-) Tracheobronchitis vs Colonization? * RESPIRATORY CULTURE Final Organism 1 PSEUDOMONAS AERUGINOSA QUANTITY 2+ Organism 2 STENOTROPHOMONAS MALTOPHILIA QUANTITY 2+ P.AERUG STENMAL M.I.C. RX M.I.C. RX --------- --- --------- --- AMIKACIN 8 S AZTREONAM S CEFEPIME <=1 S CEFTAZIDIME 2 S CIPROFLOXACIN >=4 R GENTAMICIN 4 S IMIPENEM >=16 R LEVOFLOXACIN >=8 R 0.5 S TOBRAMYCIN 2 S TRIMETHOPRIM/SULFAMETHOXAZOLE <=20 S PIPERACILLIN/TAZOBACTAM S 6. Acute on chronic anemia. 7. Acute kidney failure, possibly on chronic kidney disease. (-) MRSA Nares INVASIVES: PIV CURRENT ABX: ABD DAY #6 =>Merrem, Diflucan, Flagyl Zyvox-> DC'd 04/17 ID RECOMMENDATION 1. DC Zyvox-> 04/17 2. Anticipate short course of Merrem for low colony count UTI 3. Continue Flagyl for C.Diff & Diflucan for fungal dermatitis under breasts . Problems: Consultation Date/Type/Reason Admit Date/Time April 14, 2017 at 00:00 Type of Consultation: ID Referring Provider: ALFONSO PERRY MD Exam/Review of Systems Vital Signs Vitals Vital Signs Date Time Temp Pulse Resp B/P Pulse Ox O2 Delivery O2 Flow Rate FiO2 04/19/17 13:15 62 11 100 30 04/19/17 11:54 98.2 118/56 04/17/17 15:15 Mechanical Ventilator Intake and Output 04/18/17 04/18/17 04/19/17 15:00 23:00 07:00 Intake Total 100 ml 950 ml 1550 ml Output Total 1000 ml 1650 ml Balance 100 ml -50 ml -100 ml Results Result Diagram: 04/19/17 0625 04/19/17 0605 Results 24 hrs Laboratory Tests Test 04/18/17 17:41 04/19/17 00:48 04/19/17 05:06 04/19/17 06:05 Bedside Glucose 155 115 129 Sodium Level 142 Potassium Level 4.5 Chloride Level 105 Carbon Dioxide Level 27 Anion Gap 15 Blood Urea Nitrogen 31 H Creatinine 0.88 Glucose Level 117 # Calcium Level 8.5 Test 04/19/17 06:25 04/19/17 11:33 White Blood Count 6.4 # Red Blood Count 2.76 L Hemoglobin 8.5 L Hematocrit 27.1 L Mean Corpuscular Volume 98.2 Mean Corpuscular Hemoglobin 30.8 Mean Corpuscular Hemoglobin Concent 31.4 L Red Cell Distribution Width 13.8 Platelet Count 168 Mean Platelet Volume 12.4 H Neutrophils % 67.3 Lymphocytes % 24.5 Monocytes % 6.0 Eosinophils % 1.4 Basophils % 0.2 Nucleated Red Blood Cells % 0.0 Neutrophils # 4.3 Lymphocytes # 1.6 Monocytes # 0.4 Eosinophils # 0.1 Basophils # 0.0 Nucleated Red Blood Cells # 0.0 Phosphorus Level 2.6 Magnesium Level 2.2 Bedside Glucose 130 Medications Medications Current Medications Lorazepam (Ativan) 0.5 mg Q6H PRN IV ANXIETY Last administered on 04/19/17 06: 23; Admin Dose 0.5 MG; Start 04/14/17 at 11:00 Ondansetron HCl (Zofran Inj) 4 mg Q6H PRN IV NAUSEA AND/OR VOMITING; Start at 11:00 Morphine Sulfate (morphine) 2 mg Q4H PRN IV PAIN LEVEL 7-10; Start 04/14/17 at 11:00 Enoxaparin Sodium (Lovenox) 30 mg DAILY SC Last administered on 04/19/17 09:43 ; Admin Dose 30 MG; Start 04/15/17 at 09:00 Miscellaneous Information 1 ea NOTE XX ; Start 04/14/17 at 11:30 Glucose (Glutose) 15 gm Q15M PRN PO DECREASED GLUCOSE; Start 04/14/17 at 11:30 Glucose (Glutose) 22.5 gm Q15M PRN PO DECREASED GLUCOSE; Start 04/14/17 at 11: 30 Dextrose (D50w Syringe) 25 ml Q15M PRN IV DECREASED GLUCOSE; Start 04/14/17 at 11:30 Dextrose (D50w Syringe) 50 ml Q15M PRN IV DECREASED GLUCOSE; Start 04/14/17 at 11:30 Glucagon (Glucagen) 1 mg Q15M PRN IM DECREASED GLUCOSE; Start 04/14/17 at 11:30 Glucose 15 gm 15 gm Q15M PRN BUCCAL DECREASED GLUCOSE; Start 04/14/17 at 11:30 Potassium Chloride/Dextrose 1,000 ml @ 50 mls/hr Q20H IV Last administered on 04/18/17 20:23; Admin Dose 50 MLS/HR; Start 04/15/17 at 09:00 Meropenem (Merrem 1 Gm/100 ml (Pmx)) 100 ml @ 200 mls/hr Q8 IVPB Last administered on 04/19/17 13:13; Admin Dose 200 MLS/HR; Start 04/15/17 at 14:00 Metronidazole (Flagyl) 500 mg Q8 GTB Last administered on 04/19/17 13:13; Admin Dose 500 MG; Start 04/16/17 at 13:00 Fluconazole (Diflucan) 100 mg DAILY PO Last administered on 04/19/17 09:32; Admin Dose 100 MG; Start 04/17/17 at 09:00 Nystatin (Nystatin Oint) 1 applic TID TOP Last administered on 04/19/17 13:13 ; Admin Dose 1 APPLIC; Start 04/16/17 at 21:00 Insulin Aspart (Novolog Insulin Pen) NOVOLOG *MILD* ALGORI... Q6 SC Last administered on 04/18/17 17:47; Admin Dose 1 UNIT; Start 04/17/17 at 18:00 Acetaminophen (Tylenol Liquid) 650 mg Q6H PRN GTB PAIN AND OR ELEVATED TEMP Last administered on 04/18/17 15:42; Admin Dose 650 MG; Start 04/17/17 at 21:30 Lansoprazole (Prevacid) 30 mg DAILY@06 GTB Last administered on 04/19/17t 05:08 ; Admin Dose 30 MG; Start 04/19/17 at 06:00 KEITH SEQUEIRA NP April 19, 2017 15:28
[2017-04-20] VITALS (22 sets, daily range): BP systolic 118–131; BP diastolic 56–95; PULSE 63–76; RESP 12–21
[2017-04-20] MEDS: LANSOPRAZOLE 30 MG CAP GTB SCH (05:51)
[2017-04-20] MEDS: MEROPENEM 1 GM/100 ML (PMX) 100 ML IVPB SCH ×3 (05:51→22:04)
[2017-04-20] MEDS: metroNIDAZOLE 500 MG TAB GTB SCH ×3 (05:51→22:04)
[2017-04-20] MEDS: INSULIN ASPART [NOVOLOG] 3 ML PEN SC SCH ×4 (05:54→17:31)
[2017-04-20 06:14] LABS: ADD SCAN DIFF NO
[2017-04-20 06:19] LABS: EOSINOPHILS # 0.1 10^3/ul (0.0-0.5); EOSINOPHILS % 1.7 % (0.0-7.0); HEMATOCRIT 27.6 % (37.0-47.0); HEMOGLOBIN 8.7 g/dl (12.0-16.0); LYMPHOCYTES % 34.6 % (15.0-51.0); MEAN CORPUSCULAR HEMOGLOBIN 31.2 pg (29.0-33.0); MEAN CORPUSCULAR HGB CONC 31.5 g/dl (32.0-37.0); MEAN CORPUSCULAR VOLUME 98.9 fl (82.0-101.0); MEAN PLATELET VOLUME 12.2 fl (7.4-10.4); MONOCYTE # 0.6 10^3/ul (0.3-0.9); MONOCYTES % 9.6 % (0.0-11.0); NEUTROPHIL # 3.1 10^3/ul (1.6-7.5); NEUTROPHILS % 53.8 % (39.0-77.0); PLATELET COUNT 184 10^3/UL (140-415); RED BLOOD COUNT 2.79 10^6/ul (4.20-5.40); RED CELL DISTRIBUTION WIDTH 13.1 % (11.5-14.5); WHITE BLOOD COUNT 5.8 10^3/ul (4.8-10.8)
[2017-04-20 06:29] LABS: POTASSIUM 4.6 mmol/L (3.5-5.1)
[2017-04-20 06:32] LABS: CALCIUM 8.5 mg/dl (8.4-10.2); CREATININE 0.71 mg/dl (0.44-1.00)
[2017-04-20] MEDS: NYSTATIN 15 GM OINT TOP SCH ×3 (09:50→22:04)
[2017-04-20] MEDS: FLUCONAZOLE 100 MG TAB PO SCH (09:50)
[2017-04-20] MEDS: ENOXAPARIN 30 MG/0.3 ML SYG SC SCH (09:51)
--- NOTE | 2017-04-20 12:52 | CONS ---
Date/Time of Note Date/Time of Note DATE: 04/20/17 TIME: 12:49 Assessment/Plan Assessment/Plan Additional Assessment/Plan 1. Acute kidney injury , likely secondary to septic shock from sepsis secondary to urinary tract infections. 2. Septic shock secondary to urinary tract infection. 3. Hypernatremia. Sodium 150 secondary to large free water deficit. 4. G-tube site cellulitis. 5. Ventilator-dependent respiratory failure, status post tracheostomy. 6. Dysphagia, status post gastrostomy tube placement. 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 9. Hypertension. 10. Hyperlipidemia. PLAN: renal function has been normal, BP stable,afebrile Vent Management per pulmonary Will continue to follow up ok to d/c from renal point of view Consultation Date/Type/Reason Admit Date/Time April 14, 2017 at 00:00 Initial Consult Date March Type of Consultation: NEPHROLOGY Referring Provider: ALFONSO PERRY MD 24 HR Interval Summary Free Text/Dictation no acute events, BP stable Exam/Review of Systems Vital Signs Vitals Vital Signs Date Time Temp Pulse Resp B/P Pulse Ox O2 Delivery O2 Flow Rate FiO2 04/20/17 11:39 70 12 97 30 04/20/17 11:17 97.6 118/57 04/17/17 15:15 Mechanical Ventilator Intake and Output 04/19/17 04/19/17 04/20/17 15:00 23:00 07:00 Intake Total 650 ml 800 ml 1500 ml Output Total 1400 ml 1150 ml Balance 650 ml -600 ml 350 ml Exam Exam GENERAL: on ventilator NECK: Supple, no JVD. The patient has a tracheostomy site. LUNGS: Decreased breath sounds at both lung bases, minimal expiratory wheezing present. HEART: S1, S2, with regular rhythm without murmur or gallop. ABDOMEN: Soft, nontender, G-tube site has some excoriation and redness around the stoma. There is no guarding or rebound tenderness. EXTREMITIES: Bilateral contractures. Results Result Diagram: 04/20/17 0546 04/20/17 0546 Results 24 hrs Laboratory Tests Test 04/19/17 17:26 04/20/17 00:37 04/20/17 05:46 04/20/17 05:54 Bedside Glucose 115 118 126 White Blood Count 5.8 Red Blood Count 2.79 L Hemoglobin 8.7 L Hematocrit 27.6 L Mean Corpuscular Volume 98.9 Mean Corpuscular Hemoglobin 31.2 Mean Corpuscular Hemoglobin Concent 31.5 L Red Cell Distribution Width 13.1 Platelet Count 184 Mean Platelet Volume 12.2 H Neutrophils % 53.8 Lymphocytes % 34.6 Monocytes % 9.6 Eosinophils % 1.7 Basophils % 0.0 Nucleated Red Blood Cells % 0.0 Neutrophils # 3.1 Lymphocytes # 2.0 Monocytes # 0.6 Eosinophils # 0.1 Basophils # 0.0 Nucleated Red Blood Cells # 0.0 Sodium Level 141 Potassium Level 4.6 Chloride Level 112 H Carbon Dioxide Level 27 Anion Gap 7 #L Blood Urea Nitrogen 30 H Creatinine 0.71 Glucose Level 124 Calcium Level 8.5 Test 04/20/17 12:23 Bedside Glucose 123 Medications Medications Current Medications Lorazepam (Ativan) 0.5 mg Q6H PRN IV ANXIETY Last administered on 04/19/17 06: 23; Admin Dose 0.5 MG; Start 04/14/17 at 11:00 Ondansetron HCl (Zofran Inj) 4 mg Q6H PRN IV NAUSEA AND/OR VOMITING; Start at 11:00 Morphine Sulfate (morphine) 2 mg Q4H PRN IV PAIN LEVEL 7-10; Start 04/14/17 at 11:00 Enoxaparin Sodium (Lovenox) 30 mg DAILY SC Last administered on 04/20/17 09:51 ; Admin Dose 30 MG; Start 04/15/17 at 09:00 Miscellaneous Information 1 ea NOTE XX ; Start 04/14/17 at 11:30 Glucose (Glutose) 15 gm Q15M PRN PO DECREASED GLUCOSE; Start 04/14/17 at 11:30 Glucose (Glutose) 22.5 gm Q15M PRN PO DECREASED GLUCOSE; Start 04/14/17 at 11: 30 Dextrose (D50w Syringe) 25 ml Q15M PRN IV DECREASED GLUCOSE; Start 04/14/17 at 11:30 Dextrose (D50w Syringe) 50 ml Q15M PRN IV DECREASED GLUCOSE; Start 04/14/17 at 11:30 Glucagon (Glucagen) 1 mg Q15M PRN IM DECREASED GLUCOSE; Start 04/14/17 at 11:30 Glucose 15 gm 15 gm Q15M PRN BUCCAL DECREASED GLUCOSE; Start 04/14/17 at 11:30 Potassium Chloride/Dextrose 1,000 ml @ 50 mls/hr Q20H IV Last administered on 04/19/17 17:28; Admin Dose 50 MLS/HR; Start 04/15/17 at 09:00 Meropenem (Merrem 1 Gm/100 ml (Pmx)) 100 ml @ 200 mls/hr Q8 IVPB Last administered on 04/20/17 05:51; Admin Dose 200 MLS/HR; Start 04/15/17 at 14:00 Metronidazole (Flagyl) 500 mg Q8 GTB Last administered on 04/20/17 05:51; Admin Dose 500 MG; Start 04/16/17 at 13:00 Fluconazole (Diflucan) 100 mg DAILY PO Last administered on 04/20/17 09:50; Admin Dose 100 MG; Start 04/17/17 at 09:00 Nystatin (Nystatin Oint) 1 applic TID TOP Last administered on 04/20/17 12:27 ; Admin Dose 1 APPLIC; Start 04/16/17 at 21:00 Insulin Aspart (Novolog Insulin Pen) NOVOLOG *MILD* ALGORI... Q6 SC Last administered on 04/18/17 17:47; Admin Dose 1 UNIT; Start 04/17/17 at 18:00 Acetaminophen (Tylenol Liquid) 650 mg Q6H PRN GTB PAIN AND OR ELEVATED TEMP Last administered on 04/18/17 15:42; Admin Dose 650 MG; Start 04/17/17 at 21:30 Lansoprazole (Prevacid) 30 mg DAILY@06 GTB Last administered on 04/20/17 05:51 ; Admin Dose 30 MG; Start 04/19/17 at 06:00 FERNANDO CLARK MD April 20, 2017 12:52
--- NOTE | 2017-04-20 13:12 | PN ---
Date/Time of Note Date/Time of Note DATE: 04/20/17 TIME: 13:02 Assessment/Plan VTE Prophylaxis VTE Prophylaxis Intervention: LMWH Lines/Catheters IV Catheter Type (from Nrsg): Peripheral IV Urinary Cath still in place: Yes Reason Cath still needed: other (indicate) (chronic urinary retention ) Assessment/Plan Assessment/Plan 86 yo female with 1. Septic shock secondary to urinary tract infection and also with noted G- tube site cellulitis with hx of MRSA infection. Urine cx with ESBL sensitive to Carbapenem and also C diff positive. Continue IVF. Meropenem, Flagyl and Diflucan. ID following Blood culture NGTD Leukocytosis resolved 2. Acute kidney injury likely ATN and pre renal secondary to septic shock. Appreciate recs from Dr Mcdaniel. Resolved. Continue IVF at lower rate and avoiding Nephrotoxic meds. Further recs per Nephro. 3. Hypernatremia: Resolved. IVF adjusted per Nephro 4. G-tube site cellulitis. On Meropenem and antifungal. Tolerating tube feeding. Leaking G tube, Dr Thompson following, plan per covering MD was to remove Gtube and place NGT but patient not cooperative for NGT Will reassess with GI today for final plans regarding G tube .. if no change of Gtube then need to d/c patient back to SNF on abx and wound care 5. Ventilator-dependent respiratory failure, status post tracheostomy. Stable on current vent setting and Pulmonary following 6. Dysphagia, status post gastrostomy tube placement. Appreciate assistance from Dr Thompson, TF resumed with free H2O, well tolerated CT abdo/pelvis shows no abscess. 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 Good UOP 9. Chronic anemia: s/p 1 units last week. Hb stable 10. Hypertension: off meds and BP stable 11. Hyperlipidemia: resume statins later. Prophylaxis: Lovenox for DVT ppx and Protonix for GI ppx Disposition: Telemetry level of care. Follow up GI, Nephro, and ID recs today. D/c plan back to SNF in the next 24 hrs if no need or unable to change G tube Subjective 24 Hr Interval Summary Free Text/Dictation Patient remeians clinically stable and at baseline currently Leaking Gtube with site cellulitis, per covering GI, patient needs Gtube removed but will pierce NGT placed and patient has not been cooperative so far Exam/Review of Systems Vital Signs Vitals Vital Signs Date Time Temp Pulse Resp B/P Pulse Ox O2 Delivery O2 Flow Rate FiO2 04/20/17 11:39 70 12 97 30 04/20/17 11:17 97.6 118/57 04/17/17 15:15 Mechanical Ventilator Intake and Output 04/19/17 04/19/17 04/20/17 15:00 23:00 07:00 Intake Total 650 ml 800 ml 1500 ml Output Total 1400 ml 1150 ml Balance 650 ml -600 ml 350 ml Exam Constitutional: alert, frail, non-verbal, other (bed bound ) Respiratory: clear to auscultation, normal air movement Cardiovascular: nl pulses, regular rate and rhythm Gastrointestinal: non-tender, soft Musculoskeletal: other (LE muscle wasting ) Extremities: normal pulses 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, other (non verbal, bed bound ) Results Result Diagram: 04/20/17 0546 04/20/17 0546 Results 24 hrs Laboratory Tests Test 04/19/17 17:26 04/20/17 00:37 04/20/17 05:46 04/20/17 05:54 Bedside Glucose 115 118 126 White Blood Count 5.8 Red Blood Count 2.79 L Hemoglobin 8.7 L Hematocrit 27.6 L Mean Corpuscular Volume 98.9 Mean Corpuscular Hemoglobin 31.2 Mean Corpuscular Hemoglobin Concent 31.5 L Red Cell Distribution Width 13.1 Platelet Count 184 Mean Platelet Volume 12.2 H Neutrophils % 53.8 Lymphocytes % 34.6 Monocytes % 9.6 Eosinophils % 1.7 Basophils % 0.0 Nucleated Red Blood Cells % 0.0 Neutrophils # 3.1 Lymphocytes # 2.0 Monocytes # 0.6 Eosinophils # 0.1 Basophils # 0.0 Nucleated Red Blood Cells # 0.0 Sodium Level 141 Potassium Level 4.6 Chloride Level 112 H Carbon Dioxide Level 27 Anion Gap 7 #L Blood Urea Nitrogen 30 H Creatinine 0.71 Glucose Level 124 Calcium Level 8.5 Test 04/20/17 12:23 Bedside Glucose 123 Medications Medications Current Medications Lorazepam (Ativan) 0.5 mg Q6H PRN IV ANXIETY Last administered on 04/19/17t 06: 23; Admin Dose 0.5 MG; Start 04/14/17 at 11:00 Ondansetron HCl (Zofran Inj) 4 mg Q6H PRN IV NAUSEA AND/OR VOMITING; Start at 11:00 Morphine Sulfate (morphine) 2 mg Q4H PRN IV PAIN LEVEL 7-10; Start 04/14/17 at 11:00 Enoxaparin Sodium (Lovenox) 30 mg DAILY SC Last administered on 04/20/17 09:51 ; Admin Dose 30 MG; Start 04/15/17 at 09:00 Miscellaneous Information 1 ea NOTE XX ; Start 04/14/17 at 11:30 Glucose (Glutose) 15 gm Q15M PRN PO DECREASED GLUCOSE; Start 04/14/17 at 11:30 Glucose (Glutose) 22.5 gm Q15M PRN PO DECREASED GLUCOSE; Start 04/14/17 at 11: 30 Dextrose (D50w Syringe) 25 ml Q15M PRN IV DECREASED GLUCOSE; Start 04/14/17 at 11:30 Dextrose (D50w Syringe) 50 ml Q15M PRN IV DECREASED GLUCOSE; Start 04/14/17 at 11:30 Glucagon (Glucagen) 1 mg Q15M PRN IM DECREASED GLUCOSE; Start 04/14/17 at 11:30 Glucose 15 gm 15 gm Q15M PRN BUCCAL DECREASED GLUCOSE; Start 04/14/17 at 11:30 Potassium Chloride/Dextrose 1,000 ml @ 50 mls/hr Q20H IV Last administered on 04/19/17 17:28; Admin Dose 50 MLS/HR; Start 04/15/17 at 09:00 Meropenem (Merrem 1 Gm/100 ml (Pmx)) 100 ml @ 200 mls/hr Q8 IVPB Last administered on 04/20/17 05:51; Admin Dose 200 MLS/HR; Start 04/15/17 at 14:00 Metronidazole (Flagyl) 500 mg Q8 GTB Last administered on 04/20/17 05:51; Admin Dose 500 MG; Start 04/16/17 at 13:00 Fluconazole (Diflucan) 100 mg DAILY PO Last administered on 04/20/17 09:50; Admin Dose 100 MG; Start 04/17/17 at 09:00 Nystatin (Nystatin Oint) 1 applic TID TOP Last administered on 04/20/17 12:27 ; Admin Dose 1 APPLIC; Start 04/16/17 at 21:00 Insulin Aspart (Novolog Insulin Pen) NOVOLOG *MILD* ALGORI... Q6 SC Last administered on 04/18/17 17:47; Admin Dose 1 UNIT; Start 04/17/17 at 18:00 Acetaminophen (Tylenol Liquid) 650 mg Q6H PRN GTB PAIN AND OR ELEVATED TEMP Last administered on 04/18/17 15:42; Admin Dose 650 MG; Start 04/17/17 at 21:30 Lansoprazole (Prevacid) 30 mg DAILY@06 GTB Last administered on 04/20/17 05:51 ; Admin Dose 30 MG; Start 04/19/17 at 06:00 CINTIA GUSTAFSON April 20, 2017 13:12
--- NOTE | 2017-04-20 13:33 | PN ---
DATE: 04/20/2017 SUBJECTIVE: The patient is awake, lying comfortably in bed. No fevers, no distress. LABORATORY DATA: WBC 5.8, no shift, no bands. BUN 30, creatinine 0.71. ANTIMICROBIALS: 1. Fluconazole. 2. Flagyl. 3. Meropenem. MICROBIOLOGY: Wound culture around G-tube growing Milena glabrata. Urine culture on admission gre w E. coli ESBL. Stool for C. diff came back positive. Endotracheal aspirate on admission grew Pseu domonas and Stenotrophomonas maltophilia. PHYSICAL EXAMINATION: GENERAL: This is a well-developed, chronically ill-appearing elderly woman who is in no distress. HEENT: Head atraumatic, normocephalic. Sclerae anicteric. Buccal mucosa dry. NECK: Supple. Tracheostomy present. CHEST: Rise symmetrical. Breath sounds diminished to bases. HEART: S1, S2. ABDOMEN: Soft, bowel sounds present. EXTREMITIES: No cyanosis. ASSESSMENT: 1. Resolving sepsis. 2. Escherichia coli extended-spectrum beta-lactamase urinary tract infection. 3. G-tube site cellulitis. 4. Clostridium difficile colitis. 5. Chronic respiratory failure with colonized sputum. 6. Chronic encephalopathy. PLAN: Remains stable. Continue present care. Complete treatment for UTI for a couple more days. We will keep on Flagyl for 2 weeks. Continue topical nystatin and Diflucan for G-tube site cellulit is. Dictated By: SOLEDAD LOPEZ [employer] MODEL for JUWAN MARSHALL MD NI/NTS Conf#: [id number] DID#: [id number]
--- NOTE | 2017-04-20 14:12 | CONS ---
Date/Time of Note Date/Time of Note DATE: 04/20/17 TIME: 14:11 Consult Date/Type/Reason Admit Date/Time April 14, 2017 at 00:00 Type of Consultation: Pulmonary Ordering Provider: ALFONSO PERRY MD Subjective Patient remains stable no new events Objective Vital Signs Date Time Temp Pulse Resp B/P Pulse Ox O2 Delivery O2 Flow Rate FiO2 04/20/17 13:28 70 13 100 30 04/20/17 11:17 97.6 118/57 04/17/17 15:15 Mechanical Ventilator Intake and Output 04/19/17 04/19/17 04/20/17 15:00 23:00 07:00 Intake Total 650 ml 800 ml 1500 ml Output Total 1400 ml 1150 ml Balance 650 ml -600 ml 350 ml Exam PHYSICAL EXAMINATION GENERAL: Elderly gentleman, on mechanical ventilation via tracheostomy VITAL SIGNS: see below. HEENT: Pupils equal, round, and reactive to light. Tracheostomy site clean and intact. CARDIAC: S1, S2, 1/6 systolic ejection murmur CHEST: Diminished air entry bilaterally. ABDOMEN: Mildly distended. Bowel sounds present no guarding or rebound EXTREMITIES: No cyanosis, clubbing edema +1 NEUROLOGIC: Generalized weakness Results/Medications Result Diagram: 04/20/17 0546 04/20/17 0546 Results 24 hrs Laboratory Tests Test 04/19/17 17:26 04/20/17 00:37 04/20/17 05:46 04/20/17 05:54 Bedside Glucose 115 118 126 White Blood Count 5.8 Red Blood Count 2.79 L Hemoglobin 8.7 L Hematocrit 27.6 L Mean Corpuscular Volume 98.9 Mean Corpuscular Hemoglobin 31.2 Mean Corpuscular Hemoglobin Concent 31.5 L Red Cell Distribution Width 13.1 Platelet Count 184 Mean Platelet Volume 12.2 H Neutrophils % 53.8 Lymphocytes % 34.6 Monocytes % 9.6 Eosinophils % 1.7 Basophils % 0.0 Nucleated Red Blood Cells % 0.0 Neutrophils # 3.1 Lymphocytes # 2.0 Monocytes # 0.6 Eosinophils # 0.1 Basophils # 0.0 Nucleated Red Blood Cells # 0.0 Sodium Level 141 Potassium Level 4.6 Chloride Level 112 H Carbon Dioxide Level 27 Anion Gap 7 #L Blood Urea Nitrogen 30 H Creatinine 0.71 Glucose Level 124 Calcium Level 8.5 Test 04/20/17 12:23 Bedside Glucose 123 Medications Current Medications Lorazepam (Ativan) 0.5 mg Q6H PRN IV ANXIETY Last administered on 04/19/17 06: 23; Admin Dose 0.5 MG; Start 04/14/17 at 11:00 Ondansetron HCl (Zofran Inj) 4 mg Q6H PRN IV NAUSEA AND/OR VOMITING; Start at 11:00 Morphine Sulfate (morphine) 2 mg Q4H PRN IV PAIN LEVEL 7-10; Start 04/14/17 at 11:00 Enoxaparin Sodium (Lovenox) 30 mg DAILY SC Last administered on 04/20/17 09:51 ; Admin Dose 30 MG; Start 04/15/17 at 09:00 Miscellaneous Information 1 ea NOTE XX ; Start 04/14/17 at 11:30 Glucose (Glutose) 15 gm Q15M PRN PO DECREASED GLUCOSE; Start 04/14/17 at 11:30 Glucose (Glutose) 22.5 gm Q15M PRN PO DECREASED GLUCOSE; Start 04/14/17 at 11: 30 Dextrose (D50w Syringe) 25 ml Q15M PRN IV DECREASED GLUCOSE; Start 04/14/17 at 11:30 Dextrose (D50w Syringe) 50 ml Q15M PRN IV DECREASED GLUCOSE; Start 04/14/17 at 11:30 Glucagon (Glucagen) 1 mg Q15M PRN IM DECREASED GLUCOSE; Start 04/14/17 at 11:30 Glucose 15 gm 15 gm Q15M PRN BUCCAL DECREASED GLUCOSE; Start 04/14/17 at 11:30 Potassium Chloride/Dextrose 1,000 ml @ 50 mls/hr Q20H IV Last administered on 04/19/17 17:28; Admin Dose 50 MLS/HR; Start 04/15/17 at 09:00 Meropenem (Merrem 1 Gm/100 ml (Pmx)) 100 ml @ 200 mls/hr Q8 IVPB Last administered on 04/20/17 13:10; Admin Dose 200 MLS/HR; Start 04/15/17 at 14:00 Metronidazole (Flagyl) 500 mg Q8 GTB Last administered on 04/20/17 13:10; Admin Dose 500 MG; Start 04/16/17 at 13:00 Fluconazole (Diflucan) 100 mg DAILY PO Last administered on 04/20/17 09:50; Admin Dose 100 MG; Start 04/17/17 at 09:00 Nystatin (Nystatin Oint) 1 applic TID TOP Last administered on 04/20/17 12:27 ; Admin Dose 1 APPLIC; Start 04/16/17 at 21:00 Insulin Aspart (Novolog Insulin Pen) NOVOLOG *MILD* ALGORI... Q6 SC Last administered on 04/18/17 17:47; Admin Dose 1 UNIT; Start 04/17/17 at 18:00 Acetaminophen (Tylenol Liquid) 650 mg Q6H PRN GTB PAIN AND OR ELEVATED TEMP Last administered on 04/18/17 15:42; Admin Dose 650 MG; Start 04/17/17 at 21:30 Lansoprazole (Prevacid) 30 mg DAILY@06 GTB Last administered on 04/20/17 05:51 ; Admin Dose 30 MG; Start 04/19/17 at 06:00 Assessment/Plan Chief Complaint/Hosp Course IMPRESSION: 1. G-tube site cellulitis 2. Ventilatory-dependent respiratory failure. 3. Encephalopathy. 4. Dysphagia with G-tube. 5. 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 Hypernatremia PLAN: 1. Vent support; BD's/CPT 2. Abx per ID 3. Wound care 4. Tube feeding/Free h20 5. Ok to D/C to SNF from Pulm perspective Problems: MARINO PRITCHETT [facility] April 20, 2017 14:12
[2017-04-20] MEDS: D5W + KCL 20 MEQ 1,000 ML IV SCH (19:17)
[2017-04-21] VITALS (23 sets, daily range): BP systolic 105–139; BP diastolic 50–96; PULSE 65–73; RESP 10–21
[2017-04-21] MEDS: MEROPENEM 1 GM/100 ML (PMX) 100 ML IVPB SCH ×3 (05:58→22:07)
[2017-04-21] MEDS: D5W + KCL 20 MEQ 1,000 ML IV SCH (05:59)
[2017-04-21] MEDS: INSULIN ASPART [NOVOLOG] 3 ML PEN SC SCH ×4 (05:59→17:20)
[2017-04-21] MEDS: LANSOPRAZOLE 30 MG CAP GTB SCH (05:59)
[2017-04-21] MEDS: metroNIDAZOLE 500 MG TAB GTB SCH ×3 (05:59→22:06)
[2017-04-21] MEDS: FLUCONAZOLE 100 MG TAB PO SCH (08:13)
[2017-04-21] MEDS: ENOXAPARIN 30 MG/0.3 ML SYG SC SCH (08:22)
[2017-04-21] MEDS: NYSTATIN 15 GM OINT TOP SCH ×3 (08:22→22:08)
[2017-04-21] MEDS ORDERED: ENOXAPARIN 40 MG/0.4 ML SYG SC SCH (09:00)
--- NOTE | 2017-04-21 09:42 | PDOCDIS ---
Discharge Instructions CONDITION Patient Condition: Stable HOME CARE INSTRUCTIONS: Special Diet: diabetisource ACTIVITY: Activity Restrictions Comment: bed ridden FOLLOW UP/APPOINTMENTS Appointments Follow up with GI within 2 weeks , re ? G tube change Follow with Wes Carrillo at [facility] CINTIA GUSTAFSON April 21, 2017 09:42
--- NOTE | 2017-04-21 11:36 | PN ---
Date/Time of Note Date/Time of Note DATE: 04/21/17 TIME: 11:22 Assessment/Plan VTE Prophylaxis VTE Prophylaxis Intervention: LMWH Lines/Catheters IV Catheter Type (from Nrsg): Peripheral IV Urinary Cath still in place: Yes Reason Cath still needed: other (indicate) (chronic urinary obstruction ) Assessment/Plan Assessment/Plan 86 yo female with 1. S/p septic shock secondary to urinary tract infection and also with noted G- tube site cellulitis with hx of MRSA infection. Urine cx with ESBL sensitive to Carbapenem and also C diff positive. D/c IVF. Meropenem x 2 more days , Flagyl and Diflucan x14 days. Appreciate ID recs Blood culture negative Leukocytosis resolved D/c back to SNF 2. Acute kidney injury likely ATN and pre renal secondary to septic shock. Appreciate recs from Dr Mcdaniel. Resolved. D/c IVF, avoiding Nephrotoxic meds. Further recs per Nephro. 3. Hypernatremia: Resolved. 4. G-tube site cellulitis. On Meropenem and antifungal. Tolerating tube feeding. Leaking G tube, Dr Thompson following, plan per covering MD was to remove Gtube and place NGT but patient not cooperative for NGT Per GI no change of Gtube, continue wound care and d/c patient back to SNF for abx and wound care 5. Ventilator-dependent respiratory failure, status post tracheostomy. Stable on current vent setting and Pulmonary following 6. Dysphagia, status post gastrostomy tube placement. Appreciate assistance from Dr Thompson/GI , TF resumed with free H2O, well tolerated CT abdo/pelvis shows no abscess. 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 Good UOP 9. Chronic anemia: s/p 1 units last week. Hb stable 10. Hypertension: off meds and BP stable 11. Hyperlipidemia: resume statins later. Prophylaxis: Lovenox for DVT ppx and Protonix for GI ppx Disposition: Telemetry level of care. Follow up GI, Nephro, and ID recs today. D /c back to SNF to SNF today. Contact Isolation for C diff Subjective 24 Hr Interval Summary Free Text/Dictation Patient remains stable and since no plan for G tube change, will d/c back to SNF on abx and wound care Labs stable Exam/Review of Systems Vital Signs Vitals Vital Signs Date Time Temp Pulse Resp B/P Pulse Ox O2 Delivery O2 Flow Rate FiO2 04/21/17 11:14 70 14 99 30 04/21/17 07:40 98.5 127/58 04/17/17 15:15 Mechanical Ventilator Intake and Output 04/20/17 04/20/17 04/21/17 15:00 23:00 07:00 Intake Total 1600 ml 1200 ml Output Total 1000 ml 850 ml Balance 600 ml 350 ml Exam Constitutional: alert, other (vent dependent and bed ridden ) Respiratory: clear to auscultation, other (vent dependent ) Cardiovascular: nl pulses, regular rate and rhythm Gastrointestinal: non-tender, soft Musculoskeletal: nl extremities to inspection, other (poor muscle tone and contrated ) Extremities: normal pulses, other (no edema, clubbing or cyanosis ) 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, other (bed ridden) Results Result Diagram: 04/20/17 0546 04/20/17 0546 Results 24 hrs Laboratory Tests Test 04/20/17 12:23 04/20/17 17:26 04/21/17 01:18 04/21/17 05:52 Bedside Glucose 123 115 105 121 Medications Medications Current Medications Lorazepam (Ativan) 0.5 mg Q6H PRN IV ANXIETY Last administered on 04/19/17 06: 23; Admin Dose 0.5 MG; Start 04/14/17 at 11:00 Ondansetron HCl (Zofran Inj) 4 mg Q6H PRN IV NAUSEA AND/OR VOMITING; Start at 11:00 Morphine Sulfate (morphine) 2 mg Q4H PRN IV PAIN LEVEL 7-10; Start 04/14/17 at 11:00 Enoxaparin Sodium (Lovenox) 30 mg DAILY SC Last administered on 04/21/17 08:22 ; Admin Dose 30 MG; Start 04/15/17 at 09:00 Miscellaneous Information 1 ea NOTE XX ; Start 04/14/17 at 11:30 Glucose (Glutose) 15 gm Q15M PRN PO DECREASED GLUCOSE; Start 04/14/17 at 11:30 Glucose (Glutose) 22.5 gm Q15M PRN PO DECREASED GLUCOSE; Start 04/14/17 at 11: 30 Dextrose (D50w Syringe) 25 ml Q15M PRN IV DECREASED GLUCOSE; Start 04/14/17 at 11:30 Dextrose (D50w Syringe) 50 ml Q15M PRN IV DECREASED GLUCOSE; Start 04/14/17 at 11:30 Glucagon (Glucagen) 1 mg Q15M PRN IM DECREASED GLUCOSE; Start 04/14/17 at 11:30 Glucose 15 gm 15 gm Q15M PRN BUCCAL DECREASED GLUCOSE; Start 04/14/17 at 11:30 Potassium Chloride/Dextrose 1,000 ml @ 50 mls/hr Q20H IV Last administered on 04/21/17 05:59; Admin Dose 50 MLS/HR; Start 04/15/17 at 09:00 Meropenem (Merrem 1 Gm/100 ml (Pmx)) 100 ml @ 200 mls/hr Q8 IVPB Last administered on 04/21/17 05:58; Admin Dose 200 MLS/HR; Start 04/15/17 at 14:00 Metronidazole (Flagyl) 500 mg Q8 GTB Last administered on 04/21/17 05:59; Admin Dose 500 MG; Start 04/16/17 at 13:00 Fluconazole (Diflucan) 100 mg DAILY PO Last administered on 04/21/17 08:13; Admin Dose 100 MG; Start 04/17/17 at 09:00 Nystatin (Nystatin Oint) 1 applic TID TOP Last administered on 04/21/17 08:22 ; Admin Dose 1 APPLIC; Start 04/16/17 at 21:00 Insulin Aspart (Novolog Insulin Pen) NOVOLOG *MILD* ALGORI... Q6 SC Last administered on 04/18/17 17:47; Admin Dose 1 UNIT; Start 04/17/17 at 18:00 Acetaminophen (Tylenol Liquid) 650 mg Q6H PRN GTB PAIN AND OR ELEVATED TEMP Last administered on 04/18/17 15:42; Admin Dose 650 MG; Start 04/17/17 at 21:30 Lansoprazole (Prevacid) 30 mg DAILY@06 GTB Last administered on 04/21/17 05:59 ; Admin Dose 30 MG; Start 04/19/17 at 06:00 CINTIA GUSTAFSON April 21, 2017 11:33
--- NOTE | 2017-04-21 13:53 | CONS ---
Date/Time of Note Date/Time of Note DATE: 04/21/17 TIME: 13:52 Assessment/Plan Assessment/Plan Additional Assessment/Plan 1. Acute kidney injury , likely secondary to septic shock from sepsis secondary to urinary tract infections. 2. Septic shock secondary to urinary tract infection. 3. Hypernatremia. Sodium 150 secondary to large free water deficit. 4. G-tube site cellulitis. 5. Ventilator-dependent respiratory failure, status post tracheostomy. 6. Dysphagia, status post gastrostomy tube placement. 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 9. Hypertension. 10. Hyperlipidemia. PLAN: renal function has been normal, BP stable,afebrile Vent Management per pulmonary Will continue to follow up ok to d/c from renal point of view waiting for isolation bed at [facility] Consultation Date/Type/Reason Admit Date/Time April 14, 2017 at 00:00 Initial Consult Date March Type of Consultation: NEPHROLOGY Referring Provider: ALFONSO PERRY MD Exam/Review of Systems Vital Signs Vitals Vital Signs Date Time Temp Pulse Resp B/P Pulse Ox O2 Delivery O2 Flow Rate FiO2 04/21/17 13:08 70 13 98 30 04/21/17 11:44 135/70 04/21/17 07:40 98.5 04/17/17 15:15 Mechanical Ventilator Intake and Output 04/20/17 04/20/17 04/21/17 15:00 23:00 07:00 Intake Total 1600 ml 1200 ml Output Total 1000 ml 850 ml Balance 600 ml 350 ml Exam GENERAL: on ventilator NECK: Supple, no JVD. The patient has a tracheostomy site. LUNGS: Decreased breath sounds at both lung bases, minimal expiratory wheezing present. HEART: S1, S2, with regular rhythm without murmur or gallop. ABDOMEN: Soft, nontender, G-tube site has some excoriation and redness around the stoma. There is no guarding or rebound tenderness. EXTREMITIES: Bilateral contractures. Results Result Diagram: 04/20/17 0546 04/20/17 0546 Results 24 hrs Laboratory Tests Test 04/20/17 17:26 04/21/17 01:18 04/21/17 05:52 04/21/17 11:32 Bedside Glucose 115 105 121 132 Medications Medications Current Medications Lorazepam (Ativan) 0.5 mg Q6H PRN IV ANXIETY Last administered on 04/19/17 06: 23; Admin Dose 0.5 MG; Start 04/14/17 at 11:00 Ondansetron HCl (Zofran Inj) 4 mg Q6H PRN IV NAUSEA AND/OR VOMITING; Start at 11:00 Morphine Sulfate (morphine) 2 mg Q4H PRN IV PAIN LEVEL 7-10; Start 04/14/17 at 11:00 Enoxaparin Sodium (Lovenox) 30 mg DAILY SC Last administered on 04/21/17 08:22 ; Admin Dose 30 MG; Start 04/15/17 at 09:00 Miscellaneous Information 1 ea NOTE XX ; Start 04/14/17 at 11:30 Glucose (Glutose) 15 gm Q15M PRN PO DECREASED GLUCOSE; Start 04/14/17 at 11:30 Glucose (Glutose) 22.5 gm Q15M PRN PO DECREASED GLUCOSE; Start 04/14/17 at 11: 30 Dextrose (D50w Syringe) 25 ml Q15M PRN IV DECREASED GLUCOSE; Start 04/14/17 at 11:30 Dextrose (D50w Syringe) 50 ml Q15M PRN IV DECREASED GLUCOSE; Start 04/14/17 at 11:30 Glucagon (Glucagen) 1 mg Q15M PRN IM DECREASED GLUCOSE; Start 04/14/17 at 11:30 Glucose 15 gm 15 gm Q15M PRN BUCCAL DECREASED GLUCOSE; Start 04/14/17 at 11:30 Meropenem (Merrem 1 Gm/100 ml (Pmx)) 100 ml @ 200 mls/hr Q8 IVPB Last administered on 04/21/17 05:58; Admin Dose 200 MLS/HR; Start 04/15/17 at 14:00 Metronidazole (Flagyl) 500 mg Q8 GTB Last administered on 04/21/17 13:24; Admin Dose 500 MG; Start 04/16/17 at 13:00 Fluconazole (Diflucan) 100 mg DAILY PO Last administered on 04/21/17 08:13; Admin Dose 100 MG; Start 04/17/17 at 09:00 Nystatin (Nystatin Oint) 1 applic TID TOP Last administered on 04/21/17 12:08 ; Admin Dose 1 APPLIC; Start 04/16/17 at 21:00 Insulin Aspart (Novolog Insulin Pen) NOVOLOG *MILD* ALGORI... Q6 SC Last administered on 04/18/17 17:47; Admin Dose 1 UNIT; Start 04/17/17 at 18:00 Acetaminophen (Tylenol Liquid) 650 mg Q6H PRN GTB PAIN AND OR ELEVATED TEMP Last administered on 04/18/17 15:42; Admin Dose 650 MG; Start 04/17/17 at 21:30 Lansoprazole (Prevacid) 30 mg DAILY@06 GTB Last administered on 04/21/17 05:59 ; Admin Dose 30 MG; Start 04/19/17 at 06:00 FERNANDO CLARK MD April 21, 2017 13:53
--- NOTE | 2017-04-21 14:22 | CONS ---
Date/Time of Note Date/Time of Note DATE: 04/21/17 TIME: 14:21 Assessment/Plan Assessment/Plan Chief Complaint/Hosp Course SUBJECTIVE: N acute events, the patient is awake, lying comfortably in bed. No fevers, no distress. ANTIMICROBIALS: 1. Fluconazole. 2. Flagyl. 3. Meropenem. MICROBIOLOGY: Wound culture around G-tube growing Milena glabrata. Urine culture on admission grew E. coli ESBL. Stool for C. diff came back positive. Endotracheal aspirate on admission grew Pseudomonas and Stenotrophomonas maltophilia. PHYSICAL EXAMINATION: GENERAL: This is a well-developed, chronically ill-appearing elderly woman who is in no distress. HEENT: Head atraumatic, normocephalic. Sclerae anicteric. Buccal mucosa dry. NECK: Supple. Tracheostomy present. CHEST: Rise symmetrical. Breath sounds diminished to bases. HEART: S1, S2. ABDOMEN: Soft, bowel sounds present. EXTREMITIES: No cyanosis. ASSESSMENT: 1. Resolving sepsis. 2. Escherichia coli extended-spectrum beta-lactamase urinary tract infection. 3. G-tube site cellulitis. 4. Clostridium difficile colitis. 5. Chronic respiratory failure with colonized sputum. 6. Chronic encephalopathy. PLAN: Remains stable. Completing treatment for UTI for a couple more days. We will keep on Flagyl for 2 weeks. Continue topical nystatin and Diflucan for G- tube site cellulitis. Pending dc to [facility] staff Problems: Consultation Date/Type/Reason Admit Date/Time April 14, 2017 at 00:00 Initial Consult Date Type of Consultation: ID Referring Provider: ALFONSO PERRY MD Exam/Review of Systems Vital Signs Vitals Vital Signs Date Time Temp Pulse Resp B/P Pulse Ox O2 Delivery O2 Flow Rate FiO2 04/21/17 13:08 70 13 98 30 04/21/17 11:44 135/70 04/21/17 07:40 98.5 04/17/17 15:15 Mechanical Ventilator Intake and Output 04/20/17 04/20/17 04/21/17 15:00 23:00 07:00 Intake Total 1600 ml 1200 ml Output Total 1000 ml 850 ml Balance 600 ml 350 ml Results Result Diagram: 04/20/17 0546 04/20/17 0546 Results 24 hrs Laboratory Tests Test 04/20/17 17:26 04/21/17 01:18 04/21/17 05:52 04/21/17 11:32 Bedside Glucose 115 105 121 132 Medications Medications Current Medications Lorazepam (Ativan) 0.5 mg Q6H PRN IV ANXIETY Last administered on 04/19/17 06: 23; Admin Dose 0.5 MG; Start 04/14/17 at 11:00 Ondansetron HCl (Zofran Inj) 4 mg Q6H PRN IV NAUSEA AND/OR VOMITING; Start at 11:00 Morphine Sulfate (morphine) 2 mg Q4H PRN IV PAIN LEVEL 7-10; Start 04/14/17 at 11:00 Enoxaparin Sodium (Lovenox) 30 mg DAILY SC Last administered on 04/21/17 08:22 ; Admin Dose 30 MG; Start 04/15/17 at 09:00 Miscellaneous Information 1 ea NOTE XX ; Start 04/14/17 at 11:30 Glucose (Glutose) 15 gm Q15M PRN PO DECREASED GLUCOSE; Start 04/14/17 at 11:30 Glucose (Glutose) 22.5 gm Q15M PRN PO DECREASED GLUCOSE; Start 04/14/17 at 11: 30 Dextrose (D50w Syringe) 25 ml Q15M PRN IV DECREASED GLUCOSE; Start 04/14/17 at 11:30 Dextrose (D50w Syringe) 50 ml Q15M PRN IV DECREASED GLUCOSE; Start 04/14/17 at 11:30 Glucagon (Glucagen) 1 mg Q15M PRN IM DECREASED GLUCOSE; Start 04/14/17 at 11:30 Glucose 15 gm 15 gm Q15M PRN BUCCAL DECREASED GLUCOSE; Start 04/14/17 at 11:30 Meropenem (Merrem 1 Gm/100 ml (Pmx)) 100 ml @ 200 mls/hr Q8 IVPB Last administered on 04/21/17 05:58; Admin Dose 200 MLS/HR; Start 04/15/17 at 14:00 Metronidazole (Flagyl) 500 mg Q8 GTB Last administered on 04/21/17 13:24; Admin Dose 500 MG; Start 04/16/17 at 13:00 Fluconazole (Diflucan) 100 mg DAILY PO Last administered on 04/21/17 08:13; Admin Dose 100 MG; Start 04/17/17 at 09:00 Nystatin (Nystatin Oint) 1 applic TID TOP Last administered on 04/21/17 12:08 ; Admin Dose 1 APPLIC; Start 04/16/17 at 21:00 Insulin Aspart (Novolog Insulin Pen) NOVOLOG *MILD* ALGORI... Q6 SC Last administered on 04/18/17 17:47; Admin Dose 1 UNIT; Start 04/17/17 at 18:00 Acetaminophen (Tylenol Liquid) 650 mg Q6H PRN GTB PAIN AND OR ELEVATED TEMP Last administered on 04/18/17 15:42; Admin Dose 650 MG; Start 04/17/17 at 21:30 Lansoprazole (Prevacid) 30 mg DAILY@06 GTB Last administered on 04/21/17 05:59 ; Admin Dose 30 MG; Start 04/19/17 at 06:00 SOLEDAD LOPEZ NP April 21, 2017 14:22
--- NOTE | 2017-04-21 15:32 | CONS ---
Date/Time of Note Date/Time of Note DATE: 04/21/17 TIME: 15:32 Consult Date/Type/Reason Admit Date/Time April 14, 2017 at 00:00 Type of Consultation: Pulmonary Ordering Provider: ALFONSO PERRY MD Subjective Patient remains stable Objective Vital Signs Date Time Temp Pulse Resp B/P Pulse Ox O2 Delivery O2 Flow Rate FiO2 04/21/17 15:23 71 14 100 30 04/21/17 15:14 97.5 132/62 04/17/17 15:15 Mechanical Ventilator Intake and Output 04/20/17 04/20/17 04/21/17 14:59 22:59 06:59 Intake Total 1500 ml 1300 ml Output Total 1000 ml 850 ml Balance 500 ml 450 ml Exam PHYSICAL EXAMINATION GENERAL: Elderly gentleman, on mechanical ventilation via tracheostomy VITAL SIGNS: see below. HEENT: Pupils equal, round, and reactive to light. Tracheostomy site clean and intact. CARDIAC: S1, S2, 1/6 systolic ejection murmur CHEST: Diminished air entry bilaterally. ABDOMEN: Mildly distended. Bowel sounds present no guarding or rebound EXTREMITIES: No cyanosis, clubbing edema +1 NEUROLOGIC: Generalized weakness Results/Medications Result Diagram: 04/20/17 0546 04/20/17 0546 Results 24 hrs Laboratory Tests Test 04/20/17 17:26 04/21/17 01:18 04/21/17 05:52 04/21/17 11:32 Bedside Glucose 115 105 121 132 Medications Current Medications Lorazepam (Ativan) 0.5 mg Q6H PRN IV ANXIETY Last administered on 04/19/17 06: 23; Admin Dose 0.5 MG; Start 04/14/17 at 11:00 Ondansetron HCl (Zofran Inj) 4 mg Q6H PRN IV NAUSEA AND/OR VOMITING; Start at 11:00 Morphine Sulfate (morphine) 2 mg Q4H PRN IV PAIN LEVEL 7-10; Start 04/14/17 at 11:00 Enoxaparin Sodium (Lovenox) 30 mg DAILY SC Last administered on 04/21/17 08:22 ; Admin Dose 30 MG; Start 04/15/17 at 09:00 Miscellaneous Information 1 ea NOTE XX ; Start 04/14/17 at 11:30 Glucose (Glutose) 15 gm Q15M PRN PO DECREASED GLUCOSE; Start 04/14/17 at 11:30 Glucose (Glutose) 22.5 gm Q15M PRN PO DECREASED GLUCOSE; Start 04/14/17 at 11: 30 Dextrose (D50w Syringe) 25 ml Q15M PRN IV DECREASED GLUCOSE; Start 04/14/17 at 11:30 Dextrose (D50w Syringe) 50 ml Q15M PRN IV DECREASED GLUCOSE; Start 04/14/17 at 11:30 Glucagon (Glucagen) 1 mg Q15M PRN IM DECREASED GLUCOSE; Start 04/14/17 at 11:30 Glucose 15 gm 15 gm Q15M PRN BUCCAL DECREASED GLUCOSE; Start 04/14/17 at 11:30 Meropenem (Merrem 1 Gm/100 ml (Pmx)) 100 ml @ 200 mls/hr Q8 IVPB Last administered on 04/21/17 14:58; Admin Dose 200 MLS/HR; Start 04/15/17 at 14:00 Metronidazole (Flagyl) 500 mg Q8 GTB Last administered on 04/21/17 13:24; Admin Dose 500 MG; Start 04/16/17 at 13:00 Fluconazole (Diflucan) 100 mg DAILY PO Last administered on 04/21/17 08:13; Admin Dose 100 MG; Start 04/17/17 at 09:00 Nystatin (Nystatin Oint) 1 applic TID TOP Last administered on 04/21/17 12:08 ; Admin Dose 1 APPLIC; Start 04/16/17 at 21:00 Insulin Aspart (Novolog Insulin Pen) NOVOLOG *MILD* ALGORI... Q6 SC Last administered on 04/18/17 17:47; Admin Dose 1 UNIT; Start 04/17/17 at 18:00 Acetaminophen (Tylenol Liquid) 650 mg Q6H PRN GTB PAIN AND OR ELEVATED TEMP Last administered on 04/18/17 15:42; Admin Dose 650 MG; Start 04/17/17 at 21:30 Lansoprazole (Prevacid) 30 mg DAILY@06 GTB Last administered on 04/21/17 05:59 ; Admin Dose 30 MG; Start 04/19/17 at 06:00 Assessment/Plan Chief Complaint/Hosp Course IMPRESSION: 1. G-tube site cellulitis 2. Ventilatory-dependent respiratory failure. 3. Encephalopathy. 4. Dysphagia with G-tube. 5. 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 Hypernatremia PLAN: 1. Vent support; BD's/CPT 2. Abx per ID 3. Wound care 4. Tube feeding/Free h20 Agree with discharge planning Problems: MARINO PRITCHETT [facility] April 21, 2017 15:32
[2017-04-22] VITALS (24 sets, daily range): BP systolic 106–147; BP diastolic 48–74; PULSE 64–74; RESP 13–22
[2017-04-22] MEDS: LANSOPRAZOLE 30 MG CAP GTB SCH (05:13)
[2017-04-22] MEDS: metroNIDAZOLE 500 MG TAB GTB SCH ×3 (05:13→21:30)
[2017-04-22] MEDS: MEROPENEM 1 GM/100 ML (PMX) 100 ML IVPB SCH ×3 (05:13→21:33)
[2017-04-22] MEDS: INSULIN ASPART [NOVOLOG] 3 ML PEN SC SCH ×4 (06:00→17:58)
[2017-04-22] MEDS: FLUCONAZOLE 100 MG TAB PO SCH (08:56)
[2017-04-22] MEDS: NYSTATIN 15 GM OINT TOP SCH ×3 (08:56→21:30)
[2017-04-22] MEDS: ENOXAPARIN 30 MG/0.3 ML SYG SC SCH (08:57)
--- NOTE | 2017-04-22 10:42 | PN ---
Date/Time of Note Date/Time of Note DATE: 04/22/17 TIME: 10:21 Assessment/Plan VTE Prophylaxis VTE Prophylaxis Intervention: LMWH Lines/Catheters IV Catheter Type (from Nrsg): Peripheral IV Urinary Cath still in place: Yes Reason Cath still needed: other (indicate) (chronic urinary retention ) Assessment/Plan Assessment/Plan 86 yo female with 1. S/p septic shock secondary to urinary tract infection and also with noted G- tube site cellulitis with hx of MRSA infection. Urine cx with ESBL sensitive to Carbapenem and also C diff positive. D/c IVF. Meropenem x 1 more days , Flagyl and Diflucan x14 days. Appreciate ID recs Blood culture negative Leukocytosis resolved Awaiting SNF bed for D/c. C diff isolation seems t be the hold back so far 2. Acute kidney injury likely ATN and pre renal secondary to septic shock. Appreciate recs from Dr Mcdaniel. Resolved. D/c IVF, avoiding Nephrotoxic meds. Further recs per Nephro. 3. G-tube site cellulitis. On Meropenem and antifungal. Tolerating tube feeding. Leaking G tube, Dr Thompson following, plan per covering MD was to remove Gtube and place NGT but patient not cooperative for NGT Per GI no change of Gtube, continue wound care and d/c patient back to SNF for abx and wound care 4. Ventilator-dependent respiratory failure, status post tracheostomy. Stable on current vent setting and Pulmonary following 5. Dysphagia, status post gastrostomy tube placement. Appreciate assistance from Dr Thompson/GI , TF resumed with free H2O, well tolerated CT abdo/pelvis shows no abscess. 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 Good UOP 8. Chronic anemia: s/p 1 units last week. Hb stable 9. Hypertension: off meds and BP stable 10. Hyperlipidemia: resume statins later. Prophylaxis: Lovenox for DVT ppx and Protonix for GI ppx Disposition: Awaiting SNF bed for discharge, on Contact Isolation for C diff Subjective 24 Hr Interval Summary Free Text/Dictation Patient clinically remains stable and back to baseline D/c to SNF yesterday but still awaiting for C diff isolation bed Exam/Review of Systems Vital Signs Vitals Vital Signs Date Time Temp Pulse Resp B/P Pulse Ox O2 Delivery O2 Flow Rate FiO2 04/22/17 09:50 30 04/22/17 09:28 72 15 98 04/22/17 07:41 98.4 139/61 Intake and Output 04/21/17 04/21/17 04/22/17 15:00 23:00 07:00 Intake Total 400 ml 680 ml Output Total 1900 ml Balance 400 ml -1220 ml Exam Constitutional: alert, frail, other (bed bound and vent dependent ) Respiratory: diminished breath sounds, other (vent dependent at this time ) Cardiovascular: regular rate and rhythm Musculoskeletal: other (poor muscle tone ) Extremities: normal pulses, other (no edema, clubbing or cyanosis ) Neurological: VIDEO PRESENTATION OPERATOR II-XII intact, other (non verbal but alert, trached and vented ) Results Result Diagram: 04/20/1746 04/20/1746 Results 24 hrs Laboratory Tests Test 04/21/17 11:32 04/21/17 17:19 04/22/17 00:46 04/22/17 05:47 Bedside Glucose 132 92 99 103 Medications Medications Current Medications Lorazepam (Ativan) 0.5 mg Q6H PRN IV ANXIETY Last administered on 04/19/17 06: 23; Admin Dose 0.5 MG; Start 04/14/17 at 11:00 Ondansetron HCl (Zofran Inj) 4 mg Q6H PRN IV NAUSEA AND/OR VOMITING; Start at 11:00 Morphine Sulfate (morphine) 2 mg Q4H PRN IV PAIN LEVEL 7-10; Start 04/14/17 at 11:00 Enoxaparin Sodium (Lovenox) 30 mg DAILY SC Last administered on 04/22/17 08:57 ; Admin Dose 30 MG; Start 04/15/17 at 09:00 Miscellaneous Information 1 ea NOTE XX ; Start 04/14/17 at 11:30 Glucose (Glutose) 15 gm Q15M PRN PO DECREASED GLUCOSE; Start 04/14/17 at 11:30 Glucose (Glutose) 22.5 gm Q15M PRN PO DECREASED GLUCOSE; Start 04/14/17 at 11: 30 Dextrose (D50w Syringe) 25 ml Q15M PRN IV DECREASED GLUCOSE; Start 04/14/17 at 11:30 Dextrose (D50w Syringe) 50 ml Q15M PRN IV DECREASED GLUCOSE; Start 04/14/17 at 11:30 Glucagon (Glucagen) 1 mg Q15M PRN IM DECREASED GLUCOSE; Start 04/14/17 at 11:30 Glucose 15 gm 15 gm Q15M PRN BUCCAL DECREASED GLUCOSE; Start 04/14/17 at 11:30 Meropenem (Merrem 1 Gm/100 ml (Pmx)) 100 ml @ 200 mls/hr Q8 IVPB Last administered on 04/22/17 05:13; Admin Dose 200 MLS/HR; Start 04/15/17 at 14:00 Metronidazole (Flagyl) 500 mg Q8 GTB Last administered on 04/22/17 05:13; Admin Dose 500 MG; Start 04/16/17 at 13:00 Fluconazole (Diflucan) 100 mg DAILY PO Last administered on 04/22/17 08:56; Admin Dose 100 MG; Start 04/17/17 at 09:00 Nystatin (Nystatin Oint) 1 applic TID TOP Last administered on 04/22/17 08:56; Admin Dose 1 APPLIC; Start 04/16/17 at 21:00 Insulin Aspart (Novolog Insulin Pen) NOVOLOG *MILD* ALGORI... Q6 SC Last administered on 04/18/17 17:47; Admin Dose 1 UNIT; Start 04/17/17 at 18:00 Acetaminophen (Tylenol Liquid) 650 mg Q6H PRN GTB PAIN AND OR ELEVATED TEMP Last administered on 04/18/17 15:42; Admin Dose 650 MG; Start 04/17/17 at 21:30 Lansoprazole (Prevacid) 30 mg DAILY@06 GTB Last administered on 04/22/17 05:13 ; Admin Dose 30 MG; Start 04/19/17 at 06:00 CINTIA GUSTAFSON Apr 22, 2017 10:34
[2017-04-22] MEDS ORDERED: NEOMYC/POLYMYX/BACIT 0.9 GM OINT ONE (10:59)
--- NOTE | 2017-04-22 12:17 | CONS ---
Date/Time of Note Date/Time of Note DATE: 04/22/17 TIME: :17 Consult Date/Type/Reason Admit Date/Time April 14, 2017 at 00:00 Type of Consultation: Pulmonary Ordering Provider: ALFONSO PERRY MD Subjective No new events Objective Vital Signs Date Time Temp Pulse Resp B/P Pulse Ox O2 Delivery O2 Flow Rate FiO2 04/22/17 11:52 98.0 72 14 147/70 98 04/22/17 11:08 30 Intake and Output 04/21/17 04/21/17 04/22/17 15:00 23:00 07:00 Intake Total 400 ml 680 ml Output Total 1900 ml Balance 400 ml -1220 ml Exam PHYSICAL EXAMINATION GENERAL: Elderly gentleman, on mechanical ventilation via tracheostomy VITAL SIGNS: see below. HEENT: Pupils equal, round, and reactive to light. Tracheostomy site clean and intact. CARDIAC: S1, S2, 1/6 systolic ejection murmur CHEST: Diminished air entry bilaterally. ABDOMEN: Mildly distended. Bowel sounds present no guarding or rebound EXTREMITIES: No cyanosis, clubbing edema +1 NEUROLOGIC: Generalized weakness Results/Medications Result Diagram: 04/20/17 0546 04/20/1746 Results 24 hrs Laboratory Tests Test 04/21/17 17:19 04/22/17 00:46 04/22/17 05:47 04/22/17 11:11 Bedside Glucose 92 99 103 105 Medications Current Medications Lorazepam (Ativan) 0.5 mg Q6H PRN IV ANXIETY Last administered on 04/19/17 06: 23; Admin Dose 0.5 MG; Start 04/14/17 at 11:00 Ondansetron HCl (Zofran Inj) 4 mg Q6H PRN IV NAUSEA AND/OR VOMITING; Start at 11:00 Morphine Sulfate (morphine) 2 mg Q4H PRN IV PAIN LEVEL 7-10; Start 04/14/17 at 11:00 Enoxaparin Sodium (Lovenox) 30 mg DAILY SC Last administered on 04/22/17 08:57 ; Admin Dose 30 MG; Start 04/15/17 at 09:00 Miscellaneous Information 1 ea NOTE XX ; Start 04/14/17 at 11:30 Glucose (Glutose) 15 gm Q15M PRN PO DECREASED GLUCOSE; Start 04/14/17 at 11:30 Glucose (Glutose) 22.5 gm Q15M PRN PO DECREASED GLUCOSE; Start 04/14/17 at 11: 30 Dextrose (D50w Syringe) 25 ml Q15M PRN IV DECREASED GLUCOSE; Start 04/14/17 at 11:30 Dextrose (D50w Syringe) 50 ml Q15M PRN IV DECREASED GLUCOSE; Start 04/14/17 at 11:30 Glucagon (Glucagen) 1 mg Q15M PRN IM DECREASED GLUCOSE; Start 04/14/17 at 11:30 Glucose 15 gm 15 gm Q15M PRN BUCCAL DECREASED GLUCOSE; Start 04/14/17 at 11:30 Meropenem (Merrem 1 Gm/100 ml (Pmx)) 100 ml @ 200 mls/hr Q8 IVPB Last administered on 04/22/17 05:13; Admin Dose 200 MLS/HR; Start 04/15/17 at 14:00 Metronidazole (Flagyl) 500 mg Q8 GTB Last administered on 04/22/17 05:13; Admin Dose 500 MG; Start 04/16/17 at 13:00 Fluconazole (Diflucan) 100 mg DAILY PO Last administered on 04/22/17 08:56; Admin Dose 100 MG; Start 04/17/17 at 09:00 Nystatin (Nystatin Oint) 1 applic TID TOP Last administered on 04/22/17 08:56; Admin Dose 1 APPLIC; Start 04/16/17 at 21:00 Insulin Aspart (Novolog Insulin Pen) NOVOLOG *MILD* ALGORI... Q6 SC Last administered on 04/18/17 17:47; Admin Dose 1 UNIT; Start 04/17/17 at 18:00 Acetaminophen (Tylenol Liquid) 650 mg Q6H PRN GTB PAIN AND OR ELEVATED TEMP Last administered on 04/18/17 15:42; Admin Dose 650 MG; Start 04/17/17 at 21:30 Lansoprazole (Prevacid) 30 mg DAILY@06 GTB Last administered on 04/22/17 05:13 ; Admin Dose 30 MG; Start 04/19/17 at 06:00 Assessment/Plan Chief Complaint/Hosp Course IMPRESSION: 1. G-tube site cellulitis 2. Ventilatory-dependent respiratory failure. 3. Encephalopathy. 4. Dysphagia with G-tube. 5. 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 Hypernatremia PLAN: 1. Vent support; BD's/CPT 2. Abx per ID 3. Wound care 4. Tube feeding/Free h20 dc planning. Problems: MARINO PRITCHETT MD, [facility] Apr 22, 2017 12:17
--- NOTE | 2017-04-22 14:22 | PN ---
DATE: 04/22/2017 SUBJECTIVE: No acute changes. The patient is lying comfortably in bed. No fevers. No labs. ANTIMICROBIALS: She is on: 1. Fluconazole. 2. Flagyl. 3. Meropenem. INDWELLINGS: Trach, PEG, Pérez. PHYSICAL EXAMINATION: GENERAL: This is a chronically ill-appearing, elderly woman, who is in no distress. HEENT: Head atraumatic, normocephalic. Sclerae anicteric. Buccal mucosa dry. NECK: Supple. Tracheostomy present. CHEST: Rise symmetrical. Breath sounds diminished to bases. HEART: S1, S2. ABDOMEN: Soft, bowel sounds present. EXTREMITIES: No cyanosis. ASSESSMENT: 1. Status post sepsis. 2. Status post Escherichia coli extended-spectrum beta-lactamase urinary tract infection. 3. Clostridium difficile colitis. 4. G-tube site cellulitis with cultures growing Milena glabrata. 5. Chronic respiratory failure with sputum culture shows colonization with Pseudomonas aeruginosa a nd Stenotrophomonas maltophilia. PLAN: The patient remains stable. Continue present care. Await for placement. Continue Flagyl, t opical nystatin and Diflucan. Discontinue meropenem in a couple of days. Dictated By: SOLEDAD LOPEZ CONTINUITY PERSON for JUWAN RECINOS/NTS Conf#: [id number] DID#: [id number]
--- NOTE | 2017-04-22 17:47 | CONS ---
Date/Time of Note Date/Time of Note DATE: 04/22/17 TIME: 17:46 Assessment/Plan Assessment/Plan Additional Assessment/Plan 1. Acute kidney injury , likely secondary to septic shock from sepsis secondary to urinary tract infections. 2. Septic shock secondary to urinary tract infection. 3. Hypernatremia. Sodium 150 secondary to large free water deficit. 4. G-tube site cellulitis. 5. Ventilator-dependent respiratory failure, status post tracheostomy. 6. Dysphagia, status post gastrostomy tube placement. 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 9. Hypertension. 10. Hyperlipidemia. PLAN: renal function has been normal, BP stable,afebrile Vent Management per pulmonary Will continue to follow up BMP ordered for AM labs waiting for isolation bed at [facility] Consultation Date/Type/Reason Admit Date/Time April 14, 2017 at 00:00 Initial Consult Date March Type of Consultation: NEPHROLOGY Referring Provider: ALFONSO PERRY MD 24 HR Interval Summary Free Text/Dictation doing ok, BP stable, afebrile, Exam/Review of Systems Vital Signs Vitals Vital Signs Date Time Temp Pulse Resp B/P Pulse Ox O2 Delivery O2 Flow Rate FiO2 04/22/17 17:15 75 14 97 30 04/22/17 15:27 98.1 139/74 Intake and Output 04/21/17 04/21/17 04/22/17 15:00 23:00 07:00 Intake Total 400 ml 680 ml Output Total 1900 ml Balance 400 ml -1220 ml Exam GENERAL: on ventilator NECK: Supple, no JVD. The patient has a tracheostomy site. LUNGS: Decreased breath sounds at both lung bases, minimal expiratory wheezing present. HEART: S1, S2, with regular rhythm without murmur or gallop. ABDOMEN: Soft, nontender, G-tube site has some excoriation and redness around the stoma. There is no guarding or rebound tenderness. EXTREMITIES: Bilateral contractures. Results Result Diagram: 04/20/17 0546 04/20/17 0546 Results 24 hrs Laboratory Tests Test 04/22/17 00:46 04/22/17 05:47 04/22/17 11:11 Bedside Glucose 99 103 105 Medications Medications Current Medications Lorazepam (Ativan) 0.5 mg Q6H PRN IV ANXIETY Last administered on 04/19/17 06: 23; Admin Dose 0.5 MG; Start 04/14/17 at 11:00 Ondansetron HCl (Zofran Inj) 4 mg Q6H PRN IV NAUSEA AND/OR VOMITING; Start at 11:00 Morphine Sulfate (morphine) 2 mg Q4H PRN IV PAIN LEVEL 7-10; Start 04/14/17 at 11:00 Enoxaparin Sodium (Lovenox) 30 mg DAILY SC Last administered on 04/22/17 08:57 ; Admin Dose 30 MG; Start 04/15/17 at 09:00 Miscellaneous Information 1 ea NOTE XX ; Start 04/14/17 at 11:30 Glucose (Glutose) 15 gm Q15M PRN PO DECREASED GLUCOSE; Start 04/14/17 at 11:30 Glucose (Glutose) 22.5 gm Q15M PRN PO DECREASED GLUCOSE; Start 04/14/17 at 11: 30 Dextrose (D50w Syringe) 25 ml Q15M PRN IV DECREASED GLUCOSE; Start 04/14/17 at 11:30 Dextrose (D50w Syringe) 50 ml Q15M PRN IV DECREASED GLUCOSE; Start 04/14/17 at 11:30 Glucagon (Glucagen) 1 mg Q15M PRN IM DECREASED GLUCOSE; Start 04/14/17 at 11:30 Glucose 15 gm 15 gm Q15M PRN BUCCAL DECREASED GLUCOSE; Start 04/14/17 at 11:30 Meropenem (Merrem 1 Gm/100 ml (Pmx)) 100 ml @ 200 mls/hr Q8 IVPB Last administered on 04/22/17 13:40; Admin Dose 200 MLS/HR; Start 04/15/17 at 14:00 Metronidazole (Flagyl) 500 mg Q8 GTB Last administered on 04/22/17 13:36; Admin Dose 500 MG; Start 04/16/17 at 13:00 Fluconazole (Diflucan) 100 mg DAILY PO Last administered on 04/22/17 08:56; Admin Dose 100 MG; Start 04/17/17 at 09:00 Nystatin (Nystatin Oint) 1 applic TID TOP Last administered on 04/22/17 13:36; Admin Dose 1 APPLIC; Start 04/16/17 at 21:00 Insulin Aspart (Novolog Insulin Pen) NOVOLOG *MILD* ALGORI... Q6 SC Last administered on 04/18/17 17:47; Admin Dose 1 UNIT; Start 04/17/17 at 18:00 Acetaminophen (Tylenol Liquid) 650 mg Q6H PRN GTB PAIN AND OR ELEVATED TEMP Last administered on 04/18/17 15:42; Admin Dose 650 MG; Start 04/17/17 at 21:30 Lansoprazole (Prevacid) 30 mg DAILY@06 GTB Last administered on 04/22/17 05:13 ; Admin Dose 30 MG; Start 04/19/17 at 06:00 FERNANDO CLARK MD Apr 22, 2017 17:47
[2017-04-23] VITALS (19 sets, daily range): BP systolic 115–153; BP diastolic 53–67; PULSE 65–75; RESP 14–25
[2017-04-23] MEDS: metroNIDAZOLE 500 MG TAB GTB SCH ×2 (05:16→14:01)
[2017-04-23] MEDS: LANSOPRAZOLE 30 MG CAP GTB SCH (05:16)
[2017-04-23] MEDS: MEROPENEM 1 GM/100 ML (PMX) 100 ML IVPB SCH ×2 (05:20→14:13)
[2017-04-23] MEDS: INSULIN ASPART [NOVOLOG] 3 ML PEN SC SCH ×3 (05:25→12:00)
[2017-04-23 07:27] LABS: CALCIUM 9.2 mg/dl (8.4-10.2); CREATININE 0.77 mg/dl (0.44-1.00); POTASSIUM 5.6 mmol/L (3.5-5.1)
[2017-04-23] MEDS: FLUCONAZOLE 100 MG TAB PO SCH (08:55)
[2017-04-23] MEDS: NYSTATIN 15 GM OINT TOP SCH ×2 (08:55→12:38)
[2017-04-23] MEDS: ENOXAPARIN 30 MG/0.3 ML SYG SC SCH (08:56)
--- NOTE | 2017-04-23 10:59 | PN ---
Date/Time of Note Date/Time of Note DATE: 04/23/17 TIME: 10:50 Assessment/Plan VTE Prophylaxis VTE Prophylaxis Intervention: LMWH Lines/Catheters IV Catheter Type (from Nrsg): Peripheral IV Urinary Cath still in place: Yes Reason Cath still needed: other (indicate) (chronic urinary retention ) Assessment/Plan Assessment/Plan 86 yo female with 1. S/p septic shock secondary to urinary tract infection and also with noted G- tube site cellulitis with hx of MRSA infection. Urine cx with ESBL sensitive to Carbapenem and also C diff positive. D/c IVF. Meropenem x 2 more days , Flagyl and Diflucan x14 days. Appreciate ID recs Blood culture negative Leukocytosis resolved Awaiting SNF bed for D/c. C diff isolation seems t be the hold back so far 2. Acute kidney injury likely ATN and pre renal secondary to septic shock. Appreciate recs from Dr Mcdaniel. Resolved. D/c IVF, avoiding Nephrotoxic meds, increased free H2O to 200 cc q6 . Further recs per Nephro. 3. G-tube site cellulitis. On Meropenem and antifungal. Tolerating tube feeding. Leaking G tube, Dr Thompson following, plan per covering MD was to remove Gtube and place NGT but patient not cooperative for NGT Per GI no change of Gtube, continue wound care and d/c patient back to SNF for abx and wound care 4. Ventilator-dependent respiratory failure, status post tracheostomy. Stable on current vent setting and Pulmonary following 5. Dysphagia, status post gastrostomy tube placement. Appreciate assistance from Dr Thompson/GI , TF resumed with free H2O, well tolerated CT abdo/pelvis shows no abscess. 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 Good UOP 8. Chronic anemia: s/p 1 units last week. Hb stable 9. Hypertension: off meds and BP stable 10. Hyperlipidemia: resume statins later. Prophylaxis: Lovenox for DVT ppx and Protonix for GI ppx Disposition: Awaiting SNF bed for discharge, on Contact Isolation for C diff Subjective 24 Hr Interval Summary Free Text/Dictation Patient doing OK and remains stable and awaiting SNF bed for discharge Exam/Review of Systems Vital Signs Vitals Vital Signs Date Time Temp Pulse Resp B/P Pulse Ox O2 Delivery O2 Flow Rate FiO2 6/2/17 09:15 72 18 98 30 04/23/17 07:43 98.1 137/63 Intake and Output 04/22/17 04/22/17 04/23/17 15:00 23:00 07:00 Intake Total 100 ml 900 ml 893 ml Output Total 1000 ml Balance 100 ml 900 ml -107 ml Exam Constitutional: alert, non-verbal, other (bed ridden ) Respiratory: clear to auscultation, other (vent dependent ) Cardiovascular: nl pulses, regular rate and rhythm Gastrointestinal: non-tender, other (G tube in site and tolerating TF well ), soft Musculoskeletal: nl extremities to inspection Extremities: normal pulses, other (no edema, clubbing or cyanosis ) Neurological: GAR[employer]CH[employer]IC II-XII intact, other (bed ridden ) Results Result Diagram: 04/20/17 0546 04/23/17 0526 Results 24 hrs Laboratory Tests Test 04/22/17 11:11 04/22/17 17:43 04/23/17 00:51 04/23/17 05:24 Bedside Glucose 105 93 95 102 Test 04/23/17 05:26 Sodium Level 144 Potassium Level 5.6 H Chloride Level 104 Carbon Dioxide Level 33 H Anion Gap 13 Blood Urea Nitrogen 25 H Creatinine 0.77 Glucose Level 94 Calcium Level 9.2 Medications Medications Current Medications Lorazepam (Ativan) 0.5 mg Q6H PRN IV ANXIETY Last administered on 04/19/17 06: 23; Admin Dose 0.5 MG; Start 04/14/17 at 11:00 Ondansetron HCl (Zofran Inj) 4 mg Q6H PRN IV NAUSEA AND/OR VOMITING; Start at 11:00 Morphine Sulfate (morphine) 2 mg Q4H PRN IV PAIN LEVEL 7-10; Start 04/14/17 at 11:00 Enoxaparin Sodium (Lovenox) 30 mg DAILY SC Last administered on 04/23/17 08:56 ; Admin Dose 30 MG; Start 04/15/17 at 09:00 Miscellaneous Information 1 ea NOTE XX ; Start 04/14/17 at 11:30 Glucose (Glutose) 15 gm Q15M PRN PO DECREASED GLUCOSE; Start 04/14/17 at 11:30 Glucose (Glutose) 22.5 gm Q15M PRN PO DECREASED GLUCOSE; Start 04/14/17 at 11: 30 Dextrose (D50w Syringe) 25 ml Q15M PRN IV DECREASED GLUCOSE; Start 04/14/17 at 11:30 Dextrose (D50w Syringe) 50 ml Q15M PRN IV DECREASED GLUCOSE; Start 04/14/17 at 11:30 Glucagon (Glucagen) 1 mg Q15M PRN IM DECREASED GLUCOSE; Start 04/14/17 at 11:30 Glucose 15 gm 15 gm Q15M PRN BUCCAL DECREASED GLUCOSE; Start 04/14/17 at 11:30 Meropenem (Merrem 1 Gm/100 ml (Pmx)) 100 ml @ 200 mls/hr Q8 IVPB Last administered on 04/23/17 05:20; Admin Dose 200 MLS/HR; Start 04/15/17 at 14:00 Metronidazole (Flagyl) 500 mg Q8 GTB Last administered on 04/23/17 05:16; Admin Dose 500 MG; Start 04/16/17 at 13:00 Fluconazole (Diflucan) 100 mg DAILY PO Last administered on 04/23/17 08:55; Admin Dose 100 MG; Start 04/17/17 at 09:00 Nystatin (Nystatin Oint) 1 applic TID TOP Last administered on 04/23/17 08:55; Admin Dose 1 APPLIC; Start 04/16/17 at 21:00 Insulin Aspart (Novolog Insulin Pen) NOVOLOG *MILD* ALGORI... Q6 SC Last administered on 04/18/17 17:47; Admin Dose 1 UNIT; Start 04/17/17 at 18:00 Acetaminophen (Tylenol Liquid) 650 mg Q6H PRN GTB PAIN AND OR ELEVATED TEMP Last administered on 04/18/17 15:42; Admin Dose 650 MG; Start 04/17/17 at 21:30 Lansoprazole (Prevacid) 30 mg DAILY@06 GTB Last administered on 04/23/17 05:16 ; Admin Dose 30 MG; Start 04/19/17 at 06:00 CINTIA GUSTAFSON Apr 23, 2017 10:59
--- NOTE | 2017-04-23 13:36 | CONS ---
Date/Time of Note Date/Time of Note DATE: 04/23/17 TIME: 13:34 Assessment/Plan Assessment/Plan Additional Assessment/Plan 1. Acute kidney injury , likely secondary to septic shock from sepsis secondary to urinary tract infections. 2. Septic shock secondary to urinary tract infection. 3. Hypernatremia. Sodium 150 secondary to large free water deficit. 4. G-tube site cellulitis. 5. Ventilator-dependent respiratory failure, status post tracheostomy. 6. Dysphagia, status post gastrostomy tube placement. 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 9. Hypertension. 10. Hyperlipidemia. PLAN: renal function has been normal, BP stable,afebrile , K high today will give one dose kayexalate 15 gram pO x 1 dose today Vent Management per pulmonary Will continue to follow up waiting for isolation bed at [facility] Consultation Date/Type/Reason Admit Date/Time April 14, 2017 at 00:00 Initial Consult Date March Type of Consultation: NEPHROLOGY Referring Provider: ALFONSO PERRY MD Exam/Review of Systems Vital Signs Vitals Vital Signs Date Time Temp Pulse Resp B/P Pulse Ox O2 Delivery O2 Flow Rate FiO2 04/23/17 13:13 74 16 97 30 04/23/17 11:53 97.4 115/66 Intake and Output 04/22/17 04/22/17 04/23/17 15:00 23:00 07:00 Intake Total 100 ml 900 ml 893 ml Output Total 1000 ml Balance 100 ml 900 ml -107 ml Results Result Diagram: 04/20/17 0546 04/23/17 0526 Results 24 hrs Laboratory Tests Test 04/22/17 17:43 04/23/17 00:51 04/23/17 05:24 04/23/17 05:26 Bedside Glucose 93 95 102 Sodium Level 144 Potassium Level 5.6 H Chloride Level 104 Carbon Dioxide Level 33 H Anion Gap 13 Blood Urea Nitrogen 25 H Creatinine 0.77 Glucose Level 94 Calcium Level 9.2 Test 04/23/17 12:36 Bedside Glucose 111 Medications Medications Current Medications Lorazepam (Ativan) 0.5 mg Q6H PRN IV ANXIETY Last administered on 04/19/17t 06: 23; Admin Dose 0.5 MG; Start 04/14/17 at 11:00 Ondansetron HCl (Zofran Inj) 4 mg Q6H PRN IV NAUSEA AND/OR VOMITING; Start at 11:00 Morphine Sulfate (morphine) 2 mg Q4H PRN IV PAIN LEVEL 7-10; Start 04/14/17 at 11:00 Enoxaparin Sodium (Lovenox) 30 mg DAILY SC Last administered on 04/23/17 08:56 ; Admin Dose 30 MG; Start 04/15/17 at 09:00 Miscellaneous Information 1 ea NOTE XX ; Start 04/14/17 at 11:30 Glucose (Glutose) 15 gm Q15M PRN PO DECREASED GLUCOSE; Start 04/14/17 at 11:30 Glucose (Glutose) 22.5 gm Q15M PRN PO DECREASED GLUCOSE; Start 04/14/17 at 11: 30 Dextrose (D50w Syringe) 25 ml Q15M PRN IV DECREASED GLUCOSE; Start 04/14/17 at 11:30 Dextrose (D50w Syringe) 50 ml Q15M PRN IV DECREASED GLUCOSE; Start 04/14/17 at 11:30 Glucagon (Glucagen) 1 mg Q15M PRN IM DECREASED GLUCOSE; Start 04/14/17 at 11:30 Glucose 15 gm 15 gm Q15M PRN BUCCAL DECREASED GLUCOSE; Start 04/14/17 at 11:30 Meropenem (Merrem 1 Gm/100 ml (Pmx)) 100 ml @ 200 mls/hr Q8 IVPB Last administered on 04/23/17 05:20; Admin Dose 200 MLS/HR; Start 04/15/17 at 14:00 Metronidazole (Flagyl) 500 mg Q8 GTB Last administered on 04/23/17 05:16; Admin Dose 500 MG; Start 04/16/17 at 13:00 Fluconazole (Diflucan) 100 mg DAILY PO Last administered on 04/23/17 08:55; Admin Dose 100 MG; Start 04/17/17 at 09:00 Nystatin (Nystatin Oint) 1 applic TID TOP Last administered on 04/23/17 12:38; Admin Dose 1 APPLIC; Start 04/16/17 at 21:00 Insulin Aspart (Novolog Insulin Pen) NOVOLOG *MILD* ALGORI... Q6 SC Last administered on 04/18/17 17:47; Admin Dose 1 UNIT; Start 04/17/17 at 18:00 Acetaminophen (Tylenol Liquid) 650 mg Q6H PRN GTB PAIN AND OR ELEVATED TEMP Last administered on 04/18/17 15:42; Admin Dose 650 MG; Start 04/17/17 at 21:30 Lansoprazole (Prevacid) 30 mg DAILY@06 GTB Last administered on 04/23/17 05:16 ; Admin Dose 30 MG; Start 04/19/17 at 06:00 FERNANDO CLARK MD Apr 23, 2017 13:36
--- NOTE | 2017-04-23 13:43 | CONS ---
Date/Time of Note Date/Time of Note DATE: 04/23/17 TIME: 13:41 Consult Date/Type/Reason Admit Date/Time April 14, 2017 at 00:00 Type of Consultation: Pulm Ordering Provider: ALFONSO PERRY MD Subjective Patient remains stable no new events Objective Vital Signs Date Time Temp Pulse Resp B/P Pulse Ox O2 Delivery O2 Flow Rate FiO2 04/23/17 13:13 74 16 97 30 04/23/17 11:53 97.4 115/66 Intake and Output 04/22/17 04/22/17 04/23/17 15:00 23:00 07:00 Intake Total 100 ml 900 ml 893 ml Output Total 1000 ml Balance 100 ml 900 ml -107 ml Exam PHYSICAL EXAMINATION GENERAL: Elderly gentleman, on mechanical ventilation via tracheostomy VITAL SIGNS: see below. HEENT: Pupils equal, round, and reactive to light. Tracheostomy site clean and intact. CARDIAC: S1, S2, 1/6 systolic ejection murmur CHEST: Diminished air entry bilaterally. ABDOMEN: Mildly distended. Bowel sounds present no guarding or rebound EXTREMITIES: No cyanosis, clubbing edema +1 NEUROLOGIC: Generalized weakness Results/Medications Result Diagram: 04/20/17 0546 04/23/17 0526 Results 24 hrs Laboratory Tests Test 04/22/17 17:43 04/23/17 00:51 04/23/17 05:24 04/23/17 05:26 Bedside Glucose 93 95 102 Sodium Level 144 Potassium Level 5.6 H Chloride Level 104 Carbon Dioxide Level 33 H Anion Gap 13 Blood Urea Nitrogen 25 H Creatinine 0.77 Glucose Level 94 Calcium Level 9.2 Test 04/23/17 12:36 Bedside Glucose 111 Medications Current Medications Lorazepam (Ativan) 0.5 mg Q6H PRN IV ANXIETY Last administered on 04/19/17 06: 23; Admin Dose 0.5 MG; Start 04/14/17 at 11:00 Ondansetron HCl (Zofran Inj) 4 mg Q6H PRN IV NAUSEA AND/OR VOMITING; Start at 11:00 Morphine Sulfate (morphine) 2 mg Q4H PRN IV PAIN LEVEL 7-10; Start 04/14/17 at 11:00 Enoxaparin Sodium (Lovenox) 30 mg DAILY SC Last administered on 04/23/17 08:56 ; Admin Dose 30 MG; Start 04/15/17 at 09:00 Miscellaneous Information 1 ea NOTE XX ; Start 04/14/17 at 11:30 Glucose (Glutose) 15 gm Q15M PRN PO DECREASED GLUCOSE; Start 04/14/17 at 11:30 Glucose (Glutose) 22.5 gm Q15M PRN PO DECREASED GLUCOSE; Start 04/14/17 at 11: 30 Dextrose (D50w Syringe) 25 ml Q15M PRN IV DECREASED GLUCOSE; Start 04/14/17 at 11:30 Dextrose (D50w Syringe) 50 ml Q15M PRN IV DECREASED GLUCOSE; Start 04/14/17 at 11:30 Glucagon (Glucagen) 1 mg Q15M PRN IM DECREASED GLUCOSE; Start 04/14/17 at 11:30 Glucose 15 gm 15 gm Q15M PRN BUCCAL DECREASED GLUCOSE; Start 04/14/17 at 11:30 Meropenem (Merrem 1 Gm/100 ml (Pmx)) 100 ml @ 200 mls/hr Q8 IVPB Last administered on 04/23/17 05:20; Admin Dose 200 MLS/HR; Start 04/15/17 at 14:00 Metronidazole (Flagyl) 500 mg Q8 GTB Last administered on 04/23/17 05:16; Admin Dose 500 MG; Start 04/16/17 at 13:00 Fluconazole (Diflucan) 100 mg DAILY PO Last administered on 04/23/17 08:55; Admin Dose 100 MG; Start 04/17/17 at 09:00 Nystatin (Nystatin Oint) 1 applic TID TOP Last administered on 04/23/17 12:38; Admin Dose 1 APPLIC; Start 04/16/17 at 21:00 Insulin Aspart (Novolog Insulin Pen) NOVOLOG *MILD* ALGORI... Q6 SC Last administered on 04/18/17 17:47; Admin Dose 1 UNIT; Start 04/17/17 at 18:00 Acetaminophen (Tylenol Liquid) 650 mg Q6H PRN GTB PAIN AND OR ELEVATED TEMP Last administered on 04/18/17 15:42; Admin Dose 650 MG; Start 04/17/17 at 21:30 Lansoprazole (Prevacid) 30 mg DAILY@06 GTB Last administered on 04/23/17 05:16 ; Admin Dose 30 MG; Start 04/19/17 at 06:00 Sodium Polystyrene Sulfonate (Kayexalate) 15 gm ONCE ONCE PO ; Start 04/23/17 at 14:00; Stop 04/23/17 at 14:01 Assessment/Plan Chief Complaint/Hosp Course IMPRESSION: 1. G-tube site cellulitis 2. Ventilatory-dependent respiratory failure. 3. Encephalopathy. 4. Dysphagia with G-tube. 5. 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 Hyperkalemia PLAN: 1. Vent support; BD's/CPT 2. Abx per ID 3. Wound care 4. Tube feeding/Free h20 5. Correction of increased K+ dc planning. Problems: MARINO PRITCHETT MD, [facility] Apr 23, 2017 13:43
[2017-04-23] MEDS ORDERED: NA POLYST SULFON 15 GM/60 ML BTL PO ONE (14:00)
== END 2017-04-23 18:24 | DRG 870 ==
LOC: E/R 22:13 → ICU 04-14 → TEL 04-15 23:16
PROVIDERS: ADMIT Internal Medicine; ATTEND Internal Medicine
PROC: 5A1955Z Respiratory Ventilation, Greater than 96 Consecutive Hours (ICD-10-PCS; principal; 2017-04-14)
PROC: 30253N1 (ICD-10-PCS; 2017-04-17)
DX: A41.9 Sepsis, unspecified organism (principal); R65.21 Severe sepsis with septic shock; G93.40 Encephalopathy, unspecified; N17.9 Acute kidney failure, unspecified; J96.10 Chronic respiratory failure, unspecified whether with hypoxia or hypercapnia; T85.79XA Infection and inflammatory reaction due to other internal prosthetic devices, implants and grafts, initial encounter; E87.0 Hyperosmolality and hypernatremia; N39.0 Urinary tract infection, site not specified; L03.818 Cellulitis of other sites; A04.7 Enterocolitis due to Clostridium difficile; I12.9 Hypertensive chronic kidney disease with stage 1 through stage 4 chronic kidney disease, or unspecified chronic kidney disease; N18.9 Chronic kidney disease, unspecified; Z93.0 Tracheostomy status; F09 Unspecified mental disorder due to known physiological condition; E86.0 Dehydration; N13.9 Obstructive and reflux uropathy, unspecified; R13.10 Dysphagia, unspecified; Z93.1 Gastrostomy status; D63.8 Anemia in other chronic diseases classified elsewhere; B96.20 Unspecified Escherichia coli [E. coli] as the cause of diseases classified elsewhere; Z16.12 Extended spectrum beta lactamase (ESBL) resistance; B37.2 Candidiasis of skin and nail
CPT/HCPCS: 36430; 36600; 71010; 74176; 80048; 80053; 81001; 82803; 82962; 83036; 83605; 83735; 84100; 84132; 84484; 85025; 85610; 85730; 86850; 86900; 86901; 86920; 87040; 87045; 87070; 87075; 87081; 87086; 93005; 94002; 94003; 96374; 96376; C9113; J0692; J1650; J1815; J2060; J2185; J3480; J7030; J7040; P9016